=== PATIENT | female | born 1955 | race Caucasian/White ===

== ENCOUNTER 2017-12-04 08:58 | Outpatient (RCR) | payer BC, OTHER ==
[2017-11-07 16:11] LABS: BASOPHILS % (AUTO) 0 % (0-10); EOSINOPHILS # (AUTO) 0.1 10^3/uL (0.0-0.3); EOSINOPHILS % (AUTO) 1 % (0-10); HEMATOCRIT 37 % (35-52); HEMOGLOBIN 11.9 G/DL (11.5-16.0); LYMPHOCYTES # (AUTO) 1.7 X 10^3 (1.0-4.0); LYMPHOCYTES % (AUTO) 24 % (12-44); MEAN CORPUSCULAR HEMOGLOBIN 30 PG (25-34); MEAN CORPUSCULAR HGB CONC 32 G/DL (32-36); MEAN CORPUSCULAR VOLUME 94 FL (80-99); MEAN PLATELET VOLUME 9.4 FL (7.4-10.4); MONOCYTES # (AUTO) 0.7 X 10^3 (0.0-1.0); MONOCYTES % (AUTO) 10 % (0-12); NEUTROPHILS # (AUTO) 4.5 X 10^3 (1.8-7.8); NEUTROPHILS % (AUTO) 64 % (42-75); PLATELET COUNT 208 10^3/uL (130-400); RED BLOOD COUNT 3.99 10^6/uL (4.35-5.85); RED CELL DISTRIBUTION WIDTH 19.6 % (10.0-14.5)
[2017-11-07 16:40] LABS: ALANINE AMINOTRANSFERASE 19 U/L (0-55); ALBUMIN 4.6 GM/DL (3.2-4.5); ALKALINE PHOSPHATASE 88 U/L (40-136); BILIRUBIN,TOTAL 0.3 MG/DL (0.1-1.0); BUN/CREATININE RATIO 22; CALCIUM 9.7 MG/DL (8.5-10.1); CARBON DIOXIDE 21 MMOL/L (21-32); CHLORIDE 108 MMOL/L (98-107); CREATININE SERUM 1.43 MG/DL (0.60-1.30); GFR ESTIMATED 37; GLUCOSE 87 MG/DL (70-105); POTASSIUM 4.7 MMOL/L (3.6-5.0); SODIUM 140 MMOL/L (135-145); TOTAL PROTEIN 7.7 GM/DL (6.4-8.2)
[2017-11-13 14:07] LABS: BILIRUBIN,URINE NEGATIVE (NEGATIVE); CLARITY,URINE CLEAR; COLOR,URINE YELLOW; GLUCOSE, URINE (UA) NEGATIVE (NEGATIVE); KETONES,URINE NEGATIVE (NEGATIVE); LEUKOCYTE ESTERASE ,URINE 1+ (NEGATIVE); NITRITE,URINE NEGATIVE (NEGATIVE); PH,URINE 5 (5-9); PROTEIN,URINE 1+ (NEGATIVE); UROBILINOGEN,URINE NORMAL (NORMAL)
[2017-11-13 14:16] LABS: BACTERIA,URINE FEW /HPF; HYALINE CASTS, URINE 25-50 /LPF
[2017-11-26 10:08] LABS: BASOPHILS % (AUTO) 0 % (0-10); EOSINOPHILS # (AUTO) 0.1 10^3/uL (0.0-0.3); EOSINOPHILS % (AUTO) 4 % (0-10); HEMATOCRIT 31 % (35-52); HEMOGLOBIN 9.8 G/DL (11.5-16.0); LYMPHOCYTES # (AUTO) 0.8 X 10^3 (1.0-4.0); LYMPHOCYTES % (AUTO) 26 % (12-44); MEAN CORPUSCULAR HEMOGLOBIN 29 PG (25-34); MEAN CORPUSCULAR HGB CONC 31 G/DL (32-36); MEAN CORPUSCULAR VOLUME 94 FL (80-99); MONOCYTES # (AUTO) 0.3 X 10^3 (0.0-1.0); MONOCYTES % (AUTO) 9 % (0-12); NEUTROPHILS # (AUTO) 1.8 X 10^3 (1.8-7.8); NEUTROPHILS % (AUTO) 61 % (42-75); PLATELET COUNT 240 10^3/uL (130-400); RED BLOOD COUNT 3.34 10^6/uL (4.35-5.85); RED CELL DISTRIBUTION WIDTH 18.6 % (10.0-14.5)
[2017-11-26 10:18] LABS: BILIRUBIN,URINE NEGATIVE (NEGATIVE); CLARITY,URINE CLEAR; COLOR,URINE YELLOW; GLUCOSE, URINE (UA) NEGATIVE (NEGATIVE); KETONES,URINE NEGATIVE (NEGATIVE); LEUKOCYTE ESTERASE ,URINE 2+ (NEGATIVE); NITRITE,URINE NEGATIVE (NEGATIVE); PH,URINE 5 (5-9); PROTEIN,URINE NEGATIVE (NEGATIVE); UROBILINOGEN,URINE NORMAL (NORMAL)
[2017-11-26 10:28] LABS: ALBUMIN 3.9 GM/DL (3.2-4.5); BILIRUBIN,TOTAL 0.2 MG/DL (0.1-1.0); CALCIUM 9.3 MG/DL (8.5-10.1); CREATININE SERUM 1.12 MG/DL (0.60-1.30); POTASSIUM 4.4 MMOL/L (3.6-5.0); TOTAL PROTEIN 6.8 GM/DL (6.4-8.2)
[~2017-12-04] VITALS: Ht 162.6 cm; Wt 93.4 kg
[~2017-12-04 08:58] MED LIST: ATROPINE INJ 0.4 MG/ML SDV (CANCER CENTER) INJ SCH; BEVACIZUMAB IV SCH; FAMOTIDINE 20MG/2ML IV (CANCER CTR) IV SCH; FLUOROURACIL 0.8 GM in SYRINGE-IVPB 1 SYRINGE IV SCH; FLUOROURACIL 4,800 MG in NS (IVPB) CANCER CENTER 51.2 ML IV SCH; FOSAPREPITANT DIMEGLUMINE 150 MG in NS (IVPB) CANCER CENTER ONLY 150 ML IV SCH; IRINOTECAN HCL 300 MG, IRINOTECAN HCL 60 MG in D5W 250 ML IVPB (CANCER CTR) 250 ML IV SCH; LEUCOVORIN CALCIUM 700 MG, LEUCOVORIN CALCIUM 100 MG in D5W 250 ML IVPB (CANCER CTR) 25... IV SCH; NS IV 1000 ML (CANCER CTR) IV SCH; PALONOSETRON HCL 0.25 MG, DEXAMETHASONE INJECTION 10 MG in NS (IVPB) CANCER CENTER 50 ML IV SCH; [UNRECOGNIZED DRUG - OTHER] IV SCH; diphenhydrAMINE 25 MG TAB (BENADRYL) CANCER CENTER PO SCH
[2017-12-04 09:28] LABS: BASOPHILS % (AUTO) 1 % (0-10); EOSINOPHILS # (AUTO) 0.1 10^3/uL (0.0-0.3); EOSINOPHILS % (AUTO) 3 % (0-10); HEMATOCRIT 33 % (35-52); HEMOGLOBIN 10.5 G/DL (11.5-16.0); LYMPHOCYTES # (AUTO) 0.8 X 10^3 (1.0-4.0); LYMPHOCYTES % (AUTO) 21 % (12-44); MEAN CORPUSCULAR HEMOGLOBIN 30 PG (25-34); MEAN CORPUSCULAR HGB CONC 32 G/DL (32-36); MEAN CORPUSCULAR VOLUME 94 FL (80-99); MEAN PLATELET VOLUME 9.2 FL (7.4-10.4); MONOCYTES # (AUTO) 0.5 X 10^3 (0.0-1.0); MONOCYTES % (AUTO) 13 % (0-12); NEUTROPHILS # (AUTO) 2.3 X 10^3 (1.8-7.8); NEUTROPHILS % (AUTO) 62 % (42-75); PLATELET COUNT 205 10^3/uL (130-400); RED BLOOD COUNT 3.47 10^6/uL (4.35-5.85); RED CELL DISTRIBUTION WIDTH 18.8 % (10.0-14.5); WHITE BLOOD COUNT 3.7 10^3/uL (4.3-11.0)
[2017-12-04 09:32] LABS: BILIRUBIN,URINE NEGATIVE (NEGATIVE); CLARITY,URINE CLEAR; COLOR,URINE YELLOW; GLUCOSE, URINE (UA) NEGATIVE (NEGATIVE); KETONES,URINE NEGATIVE (NEGATIVE); LEUKOCYTE ESTERASE ,URINE 1+ (NEGATIVE); NITRITE,URINE NEGATIVE (NEGATIVE); PH,URINE 5 (5-9); PROTEIN,URINE NEGATIVE (NEGATIVE); UROBILINOGEN,URINE NORMAL (NORMAL)
[2017-12-04 09:51] LABS: BILIRUBIN,TOTAL 0.3 MG/DL (0.1-1.0); CALCIUM 9.1 MG/DL (8.5-10.1); CREATININE SERUM 1.11 MG/DL (0.60-1.30); POTASSIUM 3.9 MMOL/L (3.6-5.0); TOTAL PROTEIN 6.7 GM/DL (6.4-8.2)
[2017-12-18 09:27] LABS: BASOPHILS % (AUTO) 0 % (0-10); EOSINOPHILS # (AUTO) 0.3 10^3/uL (0.0-0.3); EOSINOPHILS % (AUTO) 5 % (0-10); HEMATOCRIT 34 % (35-52); HEMOGLOBIN 10.8 G/DL (11.5-16.0); LYMPHOCYTES # (AUTO) 0.9 X 10^3 (1.0-4.0); LYMPHOCYTES % (AUTO) 16 % (12-44); MEAN CORPUSCULAR HEMOGLOBIN 30 PG (25-34); MEAN CORPUSCULAR HGB CONC 32 G/DL (32-36); MEAN CORPUSCULAR VOLUME 94 FL (80-99); MEAN PLATELET VOLUME 10.2 FL (7.4-10.4); MONOCYTES # (AUTO) 0.5 X 10^3 (0.0-1.0); MONOCYTES % (AUTO) 9 % (0-12); NEUTROPHILS % (AUTO) 70 % (42-75); PLATELET COUNT 204 10^3/uL (130-400); RED BLOOD COUNT 3.61 10^6/uL (4.35-5.85); RED CELL DISTRIBUTION WIDTH 18.3 % (10.0-14.5); WHITE BLOOD COUNT 5.6 10^3/uL (4.3-11.0)
[2017-12-18 09:34] LABS: BILIRUBIN,URINE NEGATIVE (NEGATIVE); CLARITY,URINE CLEAR; COLOR,URINE YELLOW; GLUCOSE, URINE (UA) NEGATIVE (NEGATIVE); KETONES,URINE NEGATIVE (NEGATIVE); LEUKOCYTE ESTERASE ,URINE 3+ (NEGATIVE); NITRITE,URINE NEGATIVE (NEGATIVE); PH,URINE 5 (5-9); PROTEIN,URINE 2+ (NEGATIVE); UROBILINOGEN,URINE NORMAL (NORMAL)
[2017-12-18 09:51] LABS: ALANINE AMINOTRANSFERASE 17 U/L (0-55); ALBUMIN 4.1 GM/DL (3.2-4.5); ALKALINE PHOSPHATASE 71 U/L (40-136); BILIRUBIN,TOTAL 0.4 MG/DL (0.1-1.0); BUN/CREATININE RATIO 22; CALCIUM 9.3 MG/DL (8.5-10.1); CARBON DIOXIDE 25 MMOL/L (21-32); CHLORIDE 105 MMOL/L (98-107); CREATININE SERUM 0.85 MG/DL (0.60-1.30); GFR ESTIMATED > 60; GLUCOSE 118 MG/DL (70-105); POTASSIUM 4.2 MMOL/L (3.6-5.0); SODIUM 140 MMOL/L (135-145)
== END 2017-12-18 09:02 | disposition home or self-care (01) ==
LOC: ONC 08:58
PROVIDERS: ATTEND Internal Medicine Hematology & Oncology
DX: Z51.11 Encounter for antineoplastic chemotherapy (principal); C20 Malignant neoplasm of rectum; C78.00 Secondary malignant neoplasm of unspecified lung; C79.11 Secondary malignant neoplasm of bladder; C79.89 Secondary malignant neoplasm of other specified sites; I10 Essential (primary) hypertension; M25.552 Pain in left hip; Z79.899 Other long term (current) drug therapy; Z93.3 Colostomy status
CPT/HCPCS: 36415; 36591; 80053; 81000; 81002; 82378; 85025; 87088; 96365; 96367; 96368; 96375; 96411; 96413; 99214

== ENCOUNTER 2018-02-26 10:36 | Outpatient (RCR) | payer BC ==
[2018-01-02 13:41] LABS: BASOPHILS % (AUTO) 0 % (0-10); EOSINOPHILS # (AUTO) 0.1 10^3/uL (0.0-0.3); EOSINOPHILS % (AUTO) 3 % (0-10); HEMATOCRIT 31 % (35-52); HEMOGLOBIN 9.9 G/DL (11.5-16.0); LYMPHOCYTES # (AUTO) 0.9 X 10^3 (1.0-4.0); LYMPHOCYTES % (AUTO) 26 % (12-44); MEAN CORPUSCULAR HEMOGLOBIN 30 PG (25-34); MEAN CORPUSCULAR HGB CONC 32 G/DL (32-36); MEAN CORPUSCULAR VOLUME 93 FL (80-99); MEAN PLATELET VOLUME 9.9 FL (7.4-10.4); MONOCYTES # (AUTO) 0.4 X 10^3 (0.0-1.0); MONOCYTES % (AUTO) 13 % (0-12); NEUTROPHILS # (AUTO) 1.9 X 10^3 (1.8-7.8); NEUTROPHILS % (AUTO) 58 % (42-75); PLATELET COUNT 184 10^3/uL (130-400); RED BLOOD COUNT 3.33 10^6/uL (4.35-5.85); RED CELL DISTRIBUTION WIDTH 18.6 % (10.0-14.5); WHITE BLOOD COUNT 3.3 10^3/uL (4.3-11.0)
[2018-01-02 13:58] LABS: ALANINE AMINOTRANSFERASE 24 U/L (0-55); ALBUMIN 4.1 GM/DL (3.2-4.5); ALKALINE PHOSPHATASE 64 U/L (40-136); BILIRUBIN,TOTAL 0.4 MG/DL (0.1-1.0); BUN/CREATININE RATIO 15; CALCIUM 9.1 MG/DL (8.5-10.1); CARBON DIOXIDE 24 MMOL/L (21-32); CHLORIDE 105 MMOL/L (98-107); CREATININE SERUM 0.85 MG/DL (0.60-1.30); GFR ESTIMATED > 60; GLUCOSE 123 MG/DL (70-105); POTASSIUM 3.8 MMOL/L (3.6-5.0); SODIUM 140 MMOL/L (135-145); TOTAL PROTEIN 6.5 GM/DL (6.4-8.2)
[2018-01-22 09:19] LABS: BASOPHILS % (AUTO) 0 % (0-10); EOSINOPHILS # (AUTO) 0.2 10^3/uL (0.0-0.3); EOSINOPHILS % (AUTO) 2 % (0-10); HEMATOCRIT 37 % (35-52); HEMOGLOBIN 11.5 G/DL (11.5-16.0); LYMPHOCYTES # (AUTO) 1.3 X 10^3 (1.0-4.0); LYMPHOCYTES % (AUTO) 19 % (12-44); MEAN CORPUSCULAR HEMOGLOBIN 29 PG (25-34); MEAN CORPUSCULAR HGB CONC 31 G/DL (32-36); MEAN CORPUSCULAR VOLUME 94 FL (80-99); MEAN PLATELET VOLUME 9.8 FL (7.4-10.4); MONOCYTES # (AUTO) 0.4 X 10^3 (0.0-1.0); MONOCYTES % (AUTO) 6 % (0-12); NEUTROPHILS # (AUTO) 5.1 X 10^3 (1.8-7.8); NEUTROPHILS % (AUTO) 72 % (42-75); PLATELET COUNT 213 10^3/uL (130-400); RED CELL DISTRIBUTION WIDTH 16.9 % (10.0-14.5)
[2018-01-22 09:39] LABS: ALANINE AMINOTRANSFERASE 14 U/L (0-55); ALBUMIN 4.3 GM/DL (3.2-4.5); ALKALINE PHOSPHATASE 92 U/L (40-136); BILIRUBIN,TOTAL 0.2 MG/DL (0.1-1.0); BUN/CREATININE RATIO 18; CALCIUM 9.7 MG/DL (8.5-10.1); CARBON DIOXIDE 19 MMOL/L (21-32); CHLORIDE 104 MMOL/L (98-107); CREATININE SERUM 0.88 MG/DL (0.60-1.30); GFR ESTIMATED > 60; GLUCOSE 133 MG/DL (70-105); SODIUM 139 MMOL/L (135-145); TOTAL PROTEIN 7.4 GM/DL (6.4-8.2)
[2018-02-11 10:13] LABS: BASOPHILS % (AUTO) 0 % (0-10); EOSINOPHILS # (AUTO) 0.1 10^3/uL (0.0-0.3); EOSINOPHILS % (AUTO) 2 % (0-10); HEMATOCRIT 33 % (35-52); LYMPHOCYTES % (AUTO) 19 % (12-44); MEAN CORPUSCULAR HEMOGLOBIN 28 PG (25-34); MEAN CORPUSCULAR HGB CONC 30 G/DL (32-36); MEAN CORPUSCULAR VOLUME 94 FL (80-99); MEAN PLATELET VOLUME 9.4 FL (7.4-10.4); MONOCYTES # (AUTO) 0.6 X 10^3 (0.0-1.0); MONOCYTES % (AUTO) 11 % (0-12); NEUTROPHILS # (AUTO) 3.7 X 10^3 (1.8-7.8); NEUTROPHILS % (AUTO) 68 % (42-75); PLATELET COUNT 265 10^3/uL (130-400); RED BLOOD COUNT 3.54 10^6/uL (4.35-5.85); RED CELL DISTRIBUTION WIDTH 16.8 % (10.0-14.5); WHITE BLOOD COUNT 5.4 10^3/uL (4.3-11.0)
[2018-02-11 10:35] LABS: ALBUMIN 3.9 GM/DL (3.2-4.5); BILIRUBIN,TOTAL 0.3 MG/DL (0.1-1.0); CALCIUM 9.8 MG/DL (8.5-10.1); CREATININE SERUM 1.42 MG/DL (0.60-1.30); POTASSIUM 4.2 MMOL/L (3.6-5.0); TOTAL PROTEIN 7.4 GM/DL (6.4-8.2)
[~2018-02-26] VITALS: Ht 162.6 cm; Wt 82.6 kg
[~2018-02-26 10:36] MED LIST changes: +NS IV 1000 ML (CANCER CTR) 1,000 ML ONE
[2018-02-26 11:05] LABS: BASOPHILS % (AUTO) 0 % (0-10); EOSINOPHILS # (AUTO) 0.1 10^3/uL (0.0-0.3); EOSINOPHILS % (AUTO) 2 % (0-10); HEMATOCRIT 30 % (35-52); LYMPHOCYTES # (AUTO) 0.9 X 10^3 (1.0-4.0); LYMPHOCYTES % (AUTO) 32 % (12-44); MEAN CORPUSCULAR HEMOGLOBIN 28 PG (25-34); MEAN CORPUSCULAR HGB CONC 30 G/DL (32-36); MEAN CORPUSCULAR VOLUME 94 FL (80-99); MEAN PLATELET VOLUME 9.6 FL (7.4-10.4); MONOCYTES # (AUTO) 0.4 X 10^3 (0.0-1.0); MONOCYTES % (AUTO) 16 % (0-12); NEUTROPHILS # (AUTO) 1.3 X 10^3 (1.8-7.8); NEUTROPHILS % (AUTO) 49 % (42-75); PLATELET COUNT 217 10^3/uL (130-400); RED BLOOD COUNT 3.17 10^6/uL (4.35-5.85); RED CELL DISTRIBUTION WIDTH 17.9 % (10.0-14.5); WHITE BLOOD COUNT 2.6 10^3/uL (4.3-11.0)
[2018-02-26 11:29] LABS: ALBUMIN 3.9 GM/DL (3.2-4.5); BILIRUBIN,TOTAL 0.3 MG/DL (0.1-1.0); CALCIUM 9.5 MG/DL (8.5-10.1); CREATININE SERUM 1.79 MG/DL (0.60-1.30); POTASSIUM 4.8 MMOL/L (3.6-5.0); TOTAL PROTEIN 6.9 GM/DL (6.4-8.2)
[2018-03-04] MEDS ORDERED: NITR100C PO (17:14)
[2018-03-04] MEDS ORDERED: ONDA4TAB11 PO (17:14)
== END 2018-03-18 | disposition home or self-care (01) ==
LOC: ONC 10:36
PROVIDERS: ATTEND Internal Medicine Hematology & Oncology
DX: Z51.11 Encounter for antineoplastic chemotherapy (principal); C20 Malignant neoplasm of rectum; C78.01 Secondary malignant neoplasm of right lung; C78.02 Secondary malignant neoplasm of left lung; C79.11 Secondary malignant neoplasm of bladder; C79.89 Secondary malignant neoplasm of other specified sites; C77.5 Secondary and unspecified malignant neoplasm of intrapelvic lymph nodes; I10 Essential (primary) hypertension; M25.552 Pain in left hip; M54.5 Low back pain; M79.605 Pain in left leg; N39.0 Urinary tract infection, site not specified; D64.9 Anemia, unspecified; D72.819 Decreased white blood cell count, unspecified; Z79.899 Other long term (current) drug therapy; Z93.3 Colostomy status
CPT/HCPCS: 36591; 80053; 82378; 85025; 96367; 96368; 96375; 96411; 96413

== ENCOUNTER → 2018-02-26 | Outpatient (CLI) | payer BC ==
[2018-02-26 11:15] LABS: BASOPHILS % (AUTO) 0 % (0-10); EOSINOPHILS # (AUTO) 0.1 10^3/uL (0.0-0.3); EOSINOPHILS % (AUTO) 2 % (0-10); HEMATOCRIT 30 % (35-52); LYMPHOCYTES # (AUTO) 0.9 X 10^3 (1.0-4.0); LYMPHOCYTES % (AUTO) 32 % (12-44); MEAN CORPUSCULAR HEMOGLOBIN 28 PG (25-34); MEAN CORPUSCULAR HGB CONC 30 G/DL (32-36); MEAN CORPUSCULAR VOLUME 94 FL (80-99); MEAN PLATELET VOLUME 9.6 FL (7.4-10.4); MONOCYTES # (AUTO) 0.4 X 10^3 (0.0-1.0); MONOCYTES % (AUTO) 16 % (0-12); NEUTROPHILS # (AUTO) 1.3 X 10^3 (1.8-7.8); NEUTROPHILS % (AUTO) 49 % (42-75); PLATELET COUNT 217 10^3/uL (130-400); RED BLOOD COUNT 3.17 10^6/uL (4.35-5.85); RED CELL DISTRIBUTION WIDTH 17.9 % (10.0-14.5); WHITE BLOOD COUNT 2.6 10^3/uL (4.3-11.0)
[2018-02-26 11:40] LABS: CREATININE SERUM 1.79 MG/DL (0.60-1.30); POTASSIUM 4.8 MMOL/L (3.6-5.0)
[2018-02-26 11:41] LABS: CALCIUM 9.5 MG/DL (8.5-10.1)
[2018-02-26 14:30] LABS: BACTERIA,URINE MODERATE /HPF; BILIRUBIN,URINE NEGATIVE (NEGATIVE); CLARITY,URINE VERY CLOUDY; COLOR,URINE YELLOW; GLUCOSE, URINE (UA) NEGATIVE (NEGATIVE); KETONES,URINE NEGATIVE (NEGATIVE); LEUKOCYTE ESTERASE ,URINE 3+ (NEGATIVE); NITRITE,URINE POSITIVE (NEGATIVE); PH,URINE 5 (5-9); PROTEIN,URINE 2+ (NEGATIVE); UROBILINOGEN,URINE NORMAL (NORMAL); WBC,URINE 50-100 /HPF
== END ==
LOC: LAB 11:02
PROVIDERS: ATTEND Urology
DX: R35.0 Frequency of micturition (principal); N28.9 Disorder of kidney and ureter, unspecified; C18.9 Malignant neoplasm of colon, unspecified; C77.8 Secondary and unspecified malignant neoplasm of lymph nodes of multiple regions
CPT/HCPCS: 36415; 80048; 81000; 85025; 87077; 87088

== ENCOUNTER 2018-03-04 13:48 | Emergency (ER) | payer BC ==
[~2018-03-04] VITALS: Ht 162.6 cm; Wt 79.4 kg
--- OUTSIDE RECORDS SUMMARY | 2018-03-04 13:52 | XMS REPORT | Referral Summary ---
Author Author [facility] Organization [facility] Address Unknown Phone Unavailable Care Team Providers Care Appliance Adjuster Name Role Phone Dell Roberson PCP Encounter VC Date(s): 05/17/16 - 05/17/16 [facility] [address] [place], [place] [address] Discharge Diagnosis: Rectal cancer Discharge Disposition: 01-Home or Self Care Attending Physician: Jordon De Leon MD Admitting Physician: Jordon De Leon MD Referring Physician: Hamlet Cleveland MD Vital Signs Most recent to 1 oldest [Reference Range]: Peripheral Pulse 79 bpm Rate [60-100 bpm] (05/17/16 2:06 PM) Blood Pressure 150/72 mmHg [90-140/60-90 mmHg] *HI* (05/17/16 2:06 PM) Problem List Condition Effective Dates Status Health Status Informant Acute Active pain(Confirmed) At risk for activity Active intolerance(Confirme d)1 At risk for Active infection(Confirmed) 2 At risk of pressure Active sore(Confirmed) Impaired skin Active integrity(Confirmed) 3 Rectal Active cancer(Confirmed) Obesity(Confirmed) Active patient Self -care Active deficit(Confirmed)4 1Problem added automatically by system based on initiation of At Risk for Activity Intolerance Plan of Care 2Problem added automatically by system based on initiation of At Risk for Infection in Nutrition Plan of Care 3Problem added automatically by system based on initiation of Impaired Skin Integrity Plan of Care 4Problem added automatically by system based on initiation of Self Care Deficit Plan of Care Allergies, Adverse Reactions, Alerts Substance Reaction Severity Status penicillin Unknown Active Medications Emma-C 1,000 mg, Oral, Daily, 0 Refill(s) Start Date: 10/08/13 Status: Ordered glucosamine 1 tabs, Oral, Daily, 0 Refill(s) Start Date: 10/08/13 Status: Ordered Iron-150 1 tabs, Oral, BID, 0 Refill(s) Start Date: 10/08/13 Status: Ordered Results No data available for this section Immunizations No data available for this section Procedures Procedure Date Related Diagnosis Body Site Colostomy1 10/09/13 Resection Colon Laparoscopic Robotic2 10/09/13 Caesarean delivery following previous caesarean Portacath in place 1auto-populated from documented surgical case 2auto-populated from documented surgical case Social History Social History Type Response Smoking Status Never smoker Assessment and Plan No data available for this section
--- OUTSIDE RECORDS SUMMARY | 2018-03-04 13:52 | XMS REPORT | CCD ---
Author Author [facility] Organization Unknown Address [address] [facility] [address] [place], [place] [id number] Care Team Providers Care Paperhanger Assistant Name Role Phone JAYCEE PRIEST MD Vital Signs Vital Sign Value Unit Date/Time Recent/Initial? Weight Measured 210 lbs 01/21/2015 08:02 Initial VS Height 64 in 01/21/2015 08:02 Initial VS BMI (Body Mass Index) 36.05 kg/m^2 01/21/2015 08:02 Initial VS BSA (Body Surface Area) 2.07 m^2 01/21/2015 08:02 Initial VS Allergies Allergy Code Allergy Type Reaction Status PCN (penicillin) 0 Drug allergy Active Procedures Procedure Code Procedure Type Date Colonoscopy through stoma; with removal of tumor(s), polyp(s), or other le 98713 CPT 01/22/2015 PATHOLOGY ORDER [id number] SNOMED CT 01/22/2015 History of Immunizations Unknown or Not Available. Problems Problem Code Start Date Resolved Date Status Rectal bleeding [id number] 06/06/2013 Active Anemia [id number] 06/06/2013 Active Results Unknown or Not Available. Active Medications No Active Medications Medications Administered During Visit Unknown or Not Available. 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 You had the following procedures done: COLONOSCOPY & POLYPECTOMY You were discharged from [facility] on 01/22/2015. Should you have any questions prior to discharge, please contact a member of your healthcare team. If you have left the hospital and have any questions, please contact your primary care physician. Chief Complaint and Reason For Visit Chief Complaint Date of Onset COLONOSCOPY Function Status Unknown or Not Available. Plan of Care Unknown or Not Available. Referral/Transition of Care Unknown or Not Available.
--- OUTSIDE RECORDS SUMMARY | 2018-03-04 13:53 | XMS REPORT ---
Author Author Mitch Gresham [facility] Address [address] [place], [place] [id number] Care Team Providers Care Credit Reporter Name Role Phone MpMitch PCP OSCAR GODWIN PreferredProvider Allergies and Adverse Reactions Name Reaction Notes PENICILLINS Plan of Treatment Planned Activity Comments Planned Date Planned Time Plan/Goal URINALYSIS W/MICRO C&S IF IND 02/05/2018 12:00 AM CBC W/ AUTO DIFF (RFLX MAN DIFF IF IND). 02/05/2018 12:00 AM BMP 02/05/2018 12:00 AM Medications Active Name Start Date Estimated Completion Date SIG Comments Glucosamine 500 mg oral tablet take 1 tablet by oral route daily Emma-C with Bioflavonoids 500-200 mg oral tablet take 1 tablet by oral route daily gabapentin 300 mg oral capsule take 1 capsule (300 mg) by oral route 3 times per day duloxetine 60 mg oral capsule,delayed release(DR/EC) take 1 capsule (60 mg) by oral route once daily hydrocodone-acetaminophen 5-325 mg oral tablet take 1 tablet by oral route every 6 hours as needed OxyContin 15 mg oral tablet,oral only,ext.rel.12 hr take 1 tablet (15 mg ) by oral route every 12 hours furosemide 20 mg oral tablet 01/04/2018 take 1 tablet (20 mg) by oral route once daily oxybutynin chloride 10 mg oral tablet extended release 24hr 01/07/2018 take 1 tablet (10 mg) by oral route once daily lisinopril 20 mg oral tablet 01/07/2018 take 1 tablet (20 mg) by oral route once daily Name Start Date Expiration Date SIG Comments prednisone 20 mg oral tablet 07/06/2015 07/14/2015 4x2 days 3x2 days 2x2 days 1x2 days Suphedrine 30 mg oral tablet 07/06/2015 07/06/2015 take 1 tablets by oral route every 4 hours as needed Discontinued Name Start Date Discontinued Date SIG Comments iron 325 mg (65 mg iron) oral capsule, extended release 01/11/2015 take 1 capsule by oral route daily Flagyl 500 mg oral tablet 12/29/2013 01/05/2014 take 1 tablet (500 mg) by oral route 3 times per day for 10 days silver sulfadiazine 1 % topical cream 02/26/2017 12/10/2017 apply a 1/16 inch (1.5 mm) thick layer to entire burn area by topical route once daily Problem List Description Status Onset Anemia Active Rectal Neoplasm, Malignant Active Colorectal cancer Active 01/08/2018 Essential hypertension Active 01/08/2018 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 01/08/2018 Vital Signs Date Time BP-Sys(mm[Hg] BP-Diane(mm[Hg]) HR(bpm) RR(rpm) Temp WT HT HC BMI BSA BMI Percentile O2 Sat(%) 01/25/2018 1:50:00 PM 130 mmHg 70 mmHg 64 bpm 14 rpm 97.5 F 195.125 lbs 64 in 33.4928 kg/m 1.9992 m 98 % 12/31/2017 2:50:00 PM 128 mmHg 80 mmHg 90 bpm 18 rpm 98.4 F 202 lbs 98 % 12/10/2017 4:05:00 PM 120 mmHg 70 mmHg 73 bpm 16 rpm 98.1 F 201.25 lbs 64 in 34.5441 kg/m 2.0303 m 97 % 02/12/2017 6:55:00 AM 162 mmHg 80 mmHg 92 bpm 16 rpm 99.2 F 226 lbs 64 in 38.79 kg/m2 2.15 m2 98 % 07/06/2015 3:35:00 PM 156 mmHg 80 mmHg 88 bpm 16 rpm 98.4 F 224 lbs 64 in 38.4491 kg/m 2.142 m 93 % 12/09/2014 2:46:00 PM 160 mmHg 80 mmHg 68 bpm 16 rpm 98.1 F 220 lbs 65 in 36.61 kg/m2 2.14 m2 01/12/2014 1:49:00 PM 160 mmHg 60 mmHg 91 bpm 20 rpm 96 F 97 % 01/05/2014 9:40:00 AM 144 mmHg 70 mmHg 73 bpm 20 rpm 96.7 F 194 lbs 65 in 32.283 kg/m 2.0089 m 99 % 12/29/2013 9:46:00 AM 144 mmHg 60 mmHg 80 bpm 16 rpm 96.6 F 95 % 06/09/2013 1:10:00 PM 126 mmHg 72 mmHg 80 bpm 20 rpm 97.9 F 187 lbs 64 in 32.0981 kg/m 1.9571 m 98 % Social History Name Description Comments Alcohol Never Uses seatbelts Caffeine Light Tobacco Never smoker History of Procedures Date Ordered Description Order Status 01/11/2015 12:00 AM IMMUNIZATION ADMIN Reviewed 01/11/2015 12:00 AM IMMUNIZATION ADMIN EACH ADD Reviewed 01/11/2015 12:00 AM FLU VAC NO PRSV 4 MARGARITO 3 YRS+ Reviewed 01/11/2015 12:00 AM PNEUMOCOCCAL VACC 13 MARGARITO IM Reviewed 09/25/2016 12:00 AM COMPLETE CBC W/AUTO DIFF WBC Returned 09/25/2016 12:00 AM COMPREHEN METABOLIC PANEL Returned 09/25/2016 12:00 AM ROUTINE VENIPUNCTURE Reviewed 10/09/2016 12:00 AM COMPLETE CBC W/AUTO DIFF WBC Returned 10/09/2016 12:00 AM COMPREHEN METABOLIC PANEL Returned 10/09/2016 12:00 AM ROUTINE VENIPUNCTURE Reviewed 10/23/2016 12:00 AM COMPLETE CBC W/AUTO DIFF WBC Returned 10/23/2016 12:00 AM COMPREHEN METABOLIC PANEL Returned 10/23/2016 12:00 AM ROUTINE VENIPUNCTURE Reviewed 11/06/2016 12:00 AM COMPLETE CBC W/AUTO DIFF WBC Returned 11/06/2016 12:00 AM COMPREHEN METABOLIC PANEL Returned 11/06/2016 12:00 AM ROUTINE VENIPUNCTURE Reviewed 11/21/2016 12:00 AM COMPLETE CBC W/AUTO DIFF WBC Returned 11/21/2016 12:00 AM COMPREHEN METABOLIC PANEL Returned 11/21/2016 12:00 AM ROUTINE VENIPUNCTURE Reviewed 12/05/2016 12:00 AM COMPLETE CBC W/AUTO DIFF WBC Returned 12/05/2016 12:00 AM COMPREHEN METABOLIC PANEL Returned 12/05/2016 12:00 AM ROUTINE VENIPUNCTURE Reviewed 12/18/2016 12:00 AM COMPLETE CBC W/AUTO DIFF WBC Returned 12/18/2016 12:00 AM COMPREHEN METABOLIC PANEL Returned 12/18/2016 12:00 AM ROUTINE VENIPUNCTURE Reviewed 01/01/2017 12:00 AM COMPLETE CBC W/AUTO DIFF WBC Returned 01/01/2017 12:00 AM COMPREHEN METABOLIC PANEL Returned 01/01/2017 12:00 AM ROUTINE VENIPUNCTURE Reviewed 01/29/2017 12:00 AM COMPLETE CBC W/AUTO DIFF WBC Returned 01/29/2017 12:00 AM COMPREHEN METABOLIC PANEL Returned 01/29/2017 12:00 AM ROUTINE VENIPUNCTURE Reviewed 02/12/2017 12:00 AM THER/PROPH/DIAG INJ SC/IM Reviewed 02/12/2017 12:00 AM Decadron 8mg Injection Reviewed 02/12/2017 12:00 AM Depo-Medrol 80mg Injection Reviewed 02/12/2017 12:00 AM COMPLETE CBC W/AUTO DIFF WBC Returned 02/12/2017 12:00 AM COMPREHEN METABOLIC PANEL Returned 02/12/2017 12:00 AM ROUTINE VENIPUNCTURE Reviewed 02/26/2017 12:00 AM COMPLETE CBC W/AUTO DIFF WBC Returned 02/26/2017 12:00 AM COMPREHEN METABOLIC PANEL Returned 02/26/2017 12:00 AM ROUTINE VENIPUNCTURE Reviewed 03/26/2017 12:00 AM COMPLETE CBC W/AUTO DIFF WBC Returned 03/26/2017 12:00 AM COMPREHEN METABOLIC PANEL Returned 03/26/2017 12:00 AM ROUTINE VENIPUNCTURE Reviewed 04/09/2017 12:00 AM COMPLETE CBC W/AUTO DIFF WBC Returned 04/09/2017 12:00 AM COMPREHEN METABOLIC PANEL Returned 04/09/2017 12:00 AM ROUTINE VENIPUNCTURE Reviewed 04/23/2017 12:00 AM COMPLETE CBC W/AUTO DIFF WBC Returned 04/23/2017 12:00 AM COMPREHEN METABOLIC PANEL Returned 04/23/2017 12:00 AM ROUTINE VENIPUNCTURE Reviewed 05/08/2017 12:00 AM COMPLETE CBC W/AUTO DIFF WBC Returned 05/08/2017 12:00 AM COMPREHEN METABOLIC PANEL Returned 05/08/2017 12:00 AM ROUTINE VENIPUNCTURE Reviewed 05/21/2017 12:00 AM COMPLETE CBC W/AUTO DIFF WBC Returned 05/21/2017 12:00 AM COMPREHEN METABOLIC PANEL Returned 05/21/2017 12:00 AM ROUTINE VENIPUNCTURE Reviewed 07/02/2017 12:00 AM COMPLETE CBC W/AUTO DIFF WBC Returned 07/02/2017 12:00 AM COMPREHEN METABOLIC PANEL Returned 07/02/2017 12:00 AM ROUTINE VENIPUNCTURE Reviewed 07/16/2017 12:00 AM COMPLETE CBC W/AUTO DIFF WBC Returned 07/16/2017 12:00 AM COMPREHEN METABOLIC PANEL Returned 07/16/2017 12:00 AM ROUTINE VENIPUNCTURE Reviewed 07/30/2017 12:00 AM COMPLETE CBC W/AUTO DIFF WBC Returned 07/30/2017 12:00 AM COMPREHEN METABOLIC PANEL Returned 07/30/2017 12:00 AM ROUTINE VENIPUNCTURE Reviewed 11/22/2017 12:00 AM COMPLETE CBC W/AUTO DIFF WBC Returned 11/22/2017 12:00 AM COMPREHEN METABOLIC PANEL Returned 11/22/2017 12:00 AM ROUTINE VENIPUNCTURE Reviewed 11/22/2017 12:00 AM CARCINOEMBRYONIC ANTIGEN Returned 12/10/2017 12:00 AM URINALYSIS AUTO W/SCOPE Reviewed 01/25/2018 12:00 AM URINALYSIS AUTO W/SCOPE Reviewed 01/14/2014 12:00 AM FLU VAC NO PRSV 4 MARGARITO 3 YRS+ Reviewed 01/14/2014 12:00 AM TETANUS VACCINE IM Reviewed 01/14/2014 12:00 AM PNEUMOCOCCAL VACC 23 MARGARITO IM Reviewed Results Summary Date and Description Results 12/10/2017 5:31 PM COLOR YELLOW APPEARANCE CLEAR SPEC GRAV >=1.030 pH 5.0 PROTEIN NEGATIVE GLUCOSE NEGATIVE KETONE NEGATIVE BILIRUBIN NEGATIVE BLOOD NEGATIVE NITRITE NEGATIVE LEUK SCREEN NEGATIVE WBC/HPF NEGATIVE RBC/HPF NEGATIVE CASTS/LPF NEGATIVE CRYSTALS NEGATIVE MUCOUS THRDS NEGATIVE BACTERIA NEGATIVE EPITH CELLS NEGATIVE TRICHOMONAS NEGATIVE YEAST NEGATIVE CULT SET UP? NO 01/25/2018 4:33 PM COLOR YELLOW APPEARANCE CLEAR SPEC GRAV 1.025 pH 5.5 PROTEIN 100 GLUCOSE NEGATIVE KETONE NEGATIVE BILIRUBIN NEGATIVE BLOOD LARGE NITRITE POSITIVE LEUK SCREEN SMALL WBC/HPF 20-50 RBC/HPF 100-200 CASTS/LPF NEGATIVE CRYSTALS NEGATIVE MUCOUS THRDS NEGATIVE BACTERIA 1+ EPITH CELLS FEW SQUAMOUS TRICHOMONAS NEGATIVE YEAST NEGATIVE CULT SET UP? YES History Of Immunizations Name Date Admin Mfg Name Mfg Code Trade Name Lot# Route Inj Vis Given Vis Pub CVX Influenza 01/11/2015 sanofi pasteur PMC Fluzone > 12 Years [id number] Intramuscular Right Deltoid 01/12/2015 10/23/2014 141 Pneumococcal 01/11/2015 Pfizer, Inc. PFR Prevnar [id number] Intramuscular Left Deltoid 01/12/2015 03/19/2014 100 X 01/11/2015 Pfizer, Inc. PFR Prevnar [id number] Intramuscular Left Deltoid 01/12/2015 03/19/2014 100 History of Past Illness Name Date of Onset Comments Anemia Rectal Neoplasm, Malignant Colorectal cancer 01/08/2018 Essential hypertension 01/08/2018 Mild episode of recurrent major depressive disorder 01/08/2018 Rectal Cancer Jun 09 2013 1:13PM Postoperative Follow-up Jan 05 2014 9:42AM Need for other prophylactic vaccination ,single disease Jan 15 2014 2:01PM Need for other prophylactic vaccination ,single disease Jan 15 2014 2:10PM Postoperative Follow-up Jan 12 2014 1:51PM Postoperative Follow-up Dec 29 2013 9:48AM Colon Cancer Screening Jan 11 2015 2:47PM Personal History of Colon Cancer Jan 11 2015 2:47PM Flu and Pneumonia vaccines Jan 12 2015 11:58AM Eustachian tube dysfunction, bilateral Jul 06 2015 3:35PM Moderate Acute Post-nasal drainage Jul 06 2015 3:35PM Moderate Acute Nasal congestion Jul 06 2015 3:35PM Ear pressure, bilateral Jul 06 2015 3:35PM Adenocarcinoma of rectum Sep 25 2016 10:16AM Adenocarcinoma of rectum Oct 09 2016 7:09AM Adenocarcinoma of rectum Oct 23 2016 8:47AM Adenocarcinoma of rectum Nov 06 2016 10:52AM Adenocarcinoma of rectum Nov 21 2016 8:39AM Adenocarcinoma of rectum Dec 05 2016 7:20AM Adenocarcinoma of rectum Dec 18 2016 11:03AM Adenocarcinoma of rectum Jan 01 2017 10:35AM Adenocarcinoma of rectum Jan 29 2017 9:07AM Cough Feb 12 2017 6:56AM Purulent postnasal drainage Feb 12 2017 6:56AM Upper respiratory tract infection, unspecified type Feb 12 2017 6:56AM Sinus pressure Feb 12 2017 6:56AM Adenocarcinoma of rectum Feb 12 2017 10:14AM Adenocarcinoma of rectum Feb 26 2017 7:21AM Adenocarcinoma of rectum Mar 26 2017 7:33AM Adenocarcinoma of rectum Apr 09 2017 8:48AM Adenocarcinoma of rectum Apr 23 2017 7:35AM Adenocarcinoma of rectum May 08 2017 7:17AM Adenocarcinoma of rectum May 21 2017 6:45AM Adenocarcinoma of rectum Jul 02 2017 8:48AM Adenocarcinoma of rectum Jul 16 2017 7:40AM Adenocarcinoma of rectum Jul 30 2017 9:23AM Adenocarcinoma of rectum Nov 22 2017 8:21AM Secondary malignant neoplasm of unspecified site Dec 10 2017 4:07PM Malignant neoplasm of colon, unspecified Dec 10 2017 4:07PM Bladder mass Dec 10 2017 4:07PM Hydronephrosis Dec 10 2017 4:07PM Colorectal cancer Dec 31 2017 2:51PM Medication management Dec 31 2017 2:51PM Essential hypertension Dec 31 2017 2:51PM Mild episode of recurrent major depressive disorder Dec 31 2017 2:51PM Renal dysfunction Jan 25 2018 1:52PM Colon cancer metastasized to multiple sites Jan 25 2018 1:52PM Urinary Frequency Jan 25 2018 1:52PM Preop examination Feb 05 2018 10:05AM Payers Insurance Name Company Name Plan Name Plan Number Policy Number Policy Group Number Start Date [employer] [place] [id number] Thursday, 2015 [employer] [place] [id number] N/A [employer] [place] [id number] N/A [employer] [place] [id number] N/A History of Encounters Visit Date Visit Type Provider 01/25/2018 Office visit Mitch Gresham MD 12/31/2017 Office visit OSCAR RODARTE 12/11/2017 Surgery Mitch Gresham MD 12/10/2017 Office visit Mitch Gresham MD 11/22/2017 Laboratory OSCAR GODWIN PA 07/30/2017 Laboratory OSCAR GODWIN PA 07/16/2017 Laboratory OSCAR GODWIN PA 07/02/2017 Laboratory OSCAR GODWIN PA 05/21/2017 Laboratory OSCAR GODWIN PA 05/08/2017 Laboratory OSCAR GODWIN PA 04/23/2017 Laboratory OSCAR GODWIN PA 04/09/2017 Laboratory OSCAR GODWIN PA 03/26/2017 Laboratory OSCAR GODWIN PA 02/26/2017 Laboratory OSCAR GODWIN PA 02/12/2017 Office visit OSCAR GODWIN PA 01/29/2017 Laboratory OSCAR GODWIN PA 01/01/2017 Laboratory OSCAR GODWIN PA 12/18/2016 Laboratory OSCAR GODWIN PA 12/05/2016 Laboratory OSCAR GODWIN PA 11/21/2016 Laboratory OSCAR GODWIN PA 11/06/2016 Laboratory OSCAR GODWIN PA 10/23/2016 Laboratory OSCAR GODWIN PA 10/09/2016 Laboratory OSCAR GODWIN PA 09/25/2016 Laboratory OSCAR GODWIN PA 07/06/2015 Office visit OSCAR RODARTE 01/22/2015 Hospital Oscar Jonas MD 01/11/2015 Office visit Oscar Jonas MD 01/14/2014 Nurse visit Oscar Jonas MD 01/12/2014 Office visit Oscar Jonas MD 01/05/2014 Office visit Oscar Jonas MD 12/29/2013 Office visit Oscar Jonas MD 12/26/2013 Hospital Oscar Jonas MD 06/19/2013 Hospital Oscar Jonas MD 06/09/2013 Office visit Oscar Jonas MD 06/07/2013 [facility] Oscar Jonas MD 06/06/2013 [facility] Oscar Jonas MD
--- OUTSIDE RECORDS SUMMARY | 2018-03-04 13:53 | XMS REPORT ---
Author Author Mitch Gresham [facility] Address [address] [place], [place] [address] Care Team Providers Care Operations Controller Name Role Phone MpMitch PCP OSCAR GODWIN [...] sanofi pasteur PMC Fluzone > 12 Years [id number] Intramuscular Right Deltoid 01/12/2015 10/23/2014 141 Pneumococcal 01/11/2015 Pfizer, Inc. PFR Prevnar [id number] Intramuscular Left Deltoid 01/12/2015 03/19/2014 100 X 01/11/2015 Pfizer, Inc. PFR Prevnar [id number] Intramuscular Left Deltoid 01/12/2015 03/19/2014 100 History [...] Group Number Start Date [employer] [place] [id number] Thursday, 2015 [employer] [place] [id number] N/A [employer] [place] [id number] N/A [employer] [place] [id number] N/A History of Encounters Visit Date Visit [...] 06/09/2013 Office visit Oscar Jonas MD 06/07/2013 [facility] Oscar Jonas MD 06/06/2013 [facility] Oscar Jonas MD
--- OUTSIDE RECORDS SUMMARY | 2018-03-04 13:54 | XMS REPORT ---
Author Author OSCAR GODWIN [facility] Address [address] [place], [place] [address] Care Team Providers Care Supervisor Compressed Yeast Name Role Phone OSCAR GODWIN PCP OSCAR GODWIN PreferredProvider Allergies and Adverse Reactions Name Reaction Notes PENICILLINS Plan of Treatment Not available. Medications Active Name Start Date Estimated Completion [...] HC BMI BSA BMI Percentile O2 Sat(%) 12/31/2017 2:50:00 PM 128 mmHg 80 mmHg [...] 12/10/2017 12:00 AM URINALYSIS AUTO W/SCOPE Reviewed 01/14/2014 [...] NEGATIVE YEAST NEGATIVE CULT SET UP? NO History Of Immunizations Name Date Admin Mfg Name Mfg Code Trade Name Lot# Route Inj Vis Given Vis Pub CVX Influenza 01/11/2015 sanofi pasteur PMC Fluzone > 12 Years [id number] Intramuscular Right Deltoid 01/12/2015 10/23/2014 141 Pneumococcal 01/11/2015 Pfizer, Inc. PFR Prevnar [id number] Intramuscular Left Deltoid 01/12/2015 03/19/2014 100 X 01/11/2015 Pfizer, Inc. PFR Prevnar [id number] Intramuscular Left Deltoid 01/12/2015 03/19/2014 100 History [...] major depressive disorder Dec 31 2017 2:51PM Payers Insurance Name Company Name Plan Name Plan Number Policy Number Policy Group Number Start Date [employer] [facility] [id number] Thursday, 2015 [employer] [place] [id number] N/A [employer] [place] [id number] N/A [employer] [place] [id number] N/A History of Encounters Visit Date Visit Type Provider 12/31/2017 Office visit OSCAR ORDARTE 12/11/2017 Surgery Mitch Gresham MD 12/10/2017 Office visit Mitch Gresham MD 11/22/2017 Laboratory OSCAR RODARTE 07/30/2017 Laboratory OSCAR RODARTE 07/16/2017 Laboratory OSCAR RODARTE 07/02/2017 Laboratory OSCAR RODARTE 05/21/2017 Laboratory OSCAR RODARTE 05/08/2017 Laboratory OSCAR GODWIN PA 04/23/2017 Laboratory [...] OSCAR GODWIN PA 07/06/2015 Office visit OSCAR GODWIN PA 01/22/2015 Hospital Oscar Jonas MD 01/11/2015 Office visit Oscar Jonas MD 01/14/2014 Nurse visit Oscar Jonas MD 01/12/2014 Office visit Oscar Jonas MD 01/05/2014 Office visit Oscar Jonas MD 12/29/2013 Office visit Oscar Jonas MD 12/26/2013 Hospital Oscar Jonas MD 06/19/2013 Hospital Oscar Jonas MD 06/09/2013 Office visit Oscar Jonas MD 06/07/2013 Hospital Oscar Jonas MD 06/06/2013 Hospital Oscar Jonas MD
--- OUTSIDE RECORDS SUMMARY | 2018-03-04 13:54 | XMS REPORT ---
Author Author Mitch Gresham [facility] Address [address] [place], [place] [address] Care Team Providers Care Metal Cleaner Name Role Phone Mitch Gresham PCP OSCAR GODWIN PreferredProvider Allergies and Adverse [...] sanofi pasteur PMC Fluzone > 12 Years [id number] Intramuscular Right Deltoid 01/12/2015 10/23/2014 141 Pneumococcal 01/11/2015 Pfizer, Inc. PFR Prevnar [id number] Intramuscular Left Deltoid 01/12/2015 03/19/2014 100 X 01/11/2015 Pfizer, Inc. PFR Prevnar [id number] Intramuscular Left Deltoid 01/12/2015 03/19/2014 100 History [...] 1:52PM Urinary Frequency Jan 25 2018 1:52PM Payers Insurance Name Company Name Plan Name Plan Number Policy Number Policy Group Number Start Date [employer] [place] [id number] Thursday, 2015 [employer] [place] [id number] N/A [employer] [place] [id number] N/A [employer] [place] [id number] N/A History of Encounters Visit Date Visit Type Provider 01/25/2018 Office visit Mitch Gresham MD 12/31/2017 Office visit OSCAR RODARTE 12/11/2017 Surgery Mitch Gresham MD 12/10/2017 Office visit Mitch Gresham MD 11/22/2017 Laboratory OSCAR GODWIN PA 07/30/2017 Laboratory OSCAR GODWIN PA 07/16/2017 Laboratory OSCAR PENAER PA 07/02/2017 Laboratory OSCAR PENAER PA 05/21/2017 Laboratory OSCAR PENAER PA 05/08/2017 Laboratory OSCAR PENAER PA 04/23/2017 Laboratory OSCAR GODWIN PA 04/09/2017 Laboratory OSCAR PENAER PA 03/26/2017 Laboratory OSCAR GODWIN PA 02/26/2017 Laboratory OSCAR PENAER PA 02/12/2017 Office visit OSCAR GODWIN PA 01/29/2017 Laboratory OSCAR PENAER PA 01/01/2017 Laboratory OSCAR PENAER PA 12/18/2016 Laboratory OSCAR PENAER PA 12/05/2016 Laboratory OSCAR PENAER PA 11/21/2016 Laboratory OSCAR PENAER PA 11/06/2016 Laboratory OSCAR GODWIN PA 10/23/2016 [...]
--- OUTSIDE RECORDS SUMMARY | 2018-03-04 13:55 | XMS REPORT ---
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 Name Role Phone OSCAR GODWIN PCP OSCAR GODWIN PreferredProvider Allergies and Adverse Reactions Name Reaction Notes PENICILLINS Plan of Treatment Planned Activity Comments Planned Date Planned Time Plan/Goal CBC with Differential 11/22/2017 12:00 AM CMP 11/22/2017 12:00 AM CEA 11/22/2017 12:00 AM Medications Active Name Start Date Estimated Completion Date SIG Comments Glucosamine 500 mg oral tablet take 1 tablet by oral route daily Emma-C with Bioflavonoids 500-200 mg oral tablet take 1 tablet by oral route daily gabapentin 300 mg oral capsule take 1 capsule (300 mg) by oral route 3 times per day silver sulfadiazine 1 % topical cream 02/26/2017 apply a 1/16 inch (1.5 mm ) thick layer to entire burn area by topical route once daily Name Start Date Expiration [...] 3 times per day for 10 days Problem List Description Status Onset Anemia Active Rectal Neoplasm, Malignant Active Vital Signs Date Time BP-Sys(mm[Hg] BP-Diane(mm[Hg]) HR(bpm) RR(rpm) Temp WT HT HC BMI BSA BMI Percentile O2 Sat(%) 02/12/2017 6:55:00 AM 162 mmHg 80 mmHg 92 bpm 16 rpm 99.2 F 226 lbs 64 in 38.7924 kg/m 2.1515 m 98 % 07/06/2015 3:35:00 PM 156 mmHg 80 mmHg 88 bpm 16 rpm 98.4 F 224 lbs 64 in 38.45 kg/m2 2.14 m2 93 % 12/09/2014 2:46:00 PM 160 mmHg [...] Name Description Comments Alcohol Never Uses seatbelts Tobacco Never smoker History of Procedures Date [...] AM ROUTINE VENIPUNCTURE Reviewed 11/22/2017 12:00 AM ROUTINE VENIPUNCTURE Reviewed 01/14/2014 12:00 AM FLU VAC NO PRSV 4 MARGARITO 3 YRS+ Reviewed 01/14/2014 12:00 AM TETANUS VACCINE IM Reviewed 01/14/2014 12:00 AM PNEUMOCOCCAL VACC 23 MARGARITO IM Reviewed Results Summary Not available. History Of Immunizations Name Date Admin Mfg Name Mfg Code Trade Name Lot# Route Inj Vis Given Vis Pub CVX Influenza 01/11/2015 sanofi pasteur PMC Fluzone > 12 Years [id number] Intramuscular Right Deltoid 01/12/2015 10/23/2014 141 Pneumococcal 01/11/2015 Pfizer, Inc. PFR Prevnar [id number] Intramuscular Left Deltoid 01/12/2015 03/19/2014 100 X 01/11/2015 Pfizer, Inc. PFR Prevnar [id number] Intramuscular Left Deltoid 01/12/2015 03/19/2014 100 History of Past Illness Name Date of Onset Comments Anemia Rectal Neoplasm, Malignant Rectal Cancer Jun 09 2013 1:13PM Postoperative [...] Adenocarcinoma of rectum Nov 22 2017 8:21AM Payers Insurance Name Company Name Plan Name Plan Number Policy Number Policy Group Number Start Date BCBS Bcbs [facility] [id number] Thursday, 2015 [employer] [place] [id number] N/A [employer] [place] [id number] N/A [employer] [place] [id number] N/A History of Encounters Visit Date Visit Type Provider 11/22/2017 Laboratory Liliana Pena RN 07/30/2017 Laboratory OSCAR RODARTE 07/16/2017 Laboratory OSCAR [...]
--- OUTSIDE RECORDS SUMMARY | 2018-03-04 13:55 | XMS REPORT ---
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 Name Role Phone OSCAR GODWIN PCP Unavailable OSCAR GODWIN PreferredProvider Unavailable Allergies and Adverse Reactions Name Reaction Notes PENICILLINS Plan of Treatment Planned Activity Comments Planned Date Planned Time Plan/Goal CBC with Differential 10/09/2016 12:00 AM CMP 10/09/2016 12:00 AM Medications Active Name Start Date Estimated Completion Date SIG Comments Glucosamine 500 mg oral tablet take 1 tablet by oral route daily Emma-C with Bioflavonoids 500-200 mg oral tablet take 1 tablet by oral route daily gabapentin 300 mg oral capsule take 1 capsule (300 mg) by oral route 3 times per day Name Start Date Expiration Date SIG Comments [...] HC BMI BSA BMI Percentile O2 Sat(%) 07/06/2015 3:35:00 PM 156 mmHg 80 mmHg 88 bpm 16 rpm 98.4 F 224 lbs 64 in 38.45 kg/m2 2.14 m2 93 % 12/09/2014 2:46:00 PM 160 mmHg 80 mmHg 68 bpm 16 rpm 98.1 F 220 lbs 65 in 36.6095 kg/m 2.1393 m 01/12/2014 1:49:00 PM 160 mmHg 60 mmHg [...] 98 % Social History Name Description Comments Tobacco Never smoker History of Procedures Date [...] AM ROUTINE VENIPUNCTURE Reviewed 10/09/2016 12:00 AM ROUTINE VENIPUNCTURE Reviewed 01/14/2014 12:00 AM FLU VAC NO PRSV 4 MARGARITO 3 YRS+ Reviewed 01/14/2014 12:00 AM TETANUS VACCINE IM Reviewed 01/14/2014 12:00 AM PNEUMOCOCCAL VACC 23 MARGARITO IM Reviewed Results Summary Date and Description Results 06/06/2013 4:54 AM WBC 8.1 RBC 3.15 HGB 8.10 g/dLHCT 27.0 %MCV 86.0 fLMCH 25.70 pgMCHC 30.0 g/dLRDW SD 47 RDW CV 15.20 %MPV 9.50 fLPLT 283 NRBC# 0.00 NRBC % 0.0 %NEUT 51.60 %%LYMP 38.20 %%MONO 8.0 %%EOS 1.60 %%BASO 0.60 %#NEUT 4.20 # LYMP 3.11 #MONO 0.65 #EOS 0.13 #BASO 0.05 MANUAL DIFF NOT IND GLUCOSE 109.0 mg/ dLSODIUM 142.0 mmol/LPOTASSIUM 3.70 mmol/LCHLORIDE 108.0 mmol/LCO2 23.0 mmol/ LBUN 13.0 mg/dLCREATININE 0.70 mg/dLSGOT/AST 15.0 IU/LSGPT/ALT 14.0 IU/LALK PHOS 64.0 IU/LTOTAL PROTEIN 6.0 g/dLALBUMIN 3.60 g/dLTOTAL BILI 0.30 mg/ dLCALCIUM 8.40 mg/dLAGE 58 GFR NonAA 87 GFR AA 105 eGFR >60 mL/min/1.73 m2eGFR AA* >60 06/06/2013 4:50 PM WBC 7.5 RBC 3.12 HGB 8.20 g/dLHCT 26.70 %MCV 86.0 fLMCH 26.30 pgMCHC 30.70 g/dLRDW SD 47 RDW CV 15.0 %MPV 9.50 fLPLT 274 NRBC# 0.00 NRBC % 0.0 %NEUT 57.0 %%LYMP 35.20 %%MONO 5.90 %%EOS 1.50 %%BASO 0.40 %#NEUT 4.27 # LYMP 2.64 #MONO 0.44 #EOS 0.11 #BASO 0.03 MANUAL DIFF NOT IND 06/07/2013 6:55 AM WBC 7.5 RBC 2.97 HGB 7.70 g/dLHCT 25.40 %MCV 86.0 fLMCH 25.90 pgMCHC 30.30 g/dLRDW SD 47 RDW CV 15.10 %MPV 9.50 fLPLT 240 NRBC# 0.00 NRBC% 0.0 %NEUT 62.50 %%LYMP 30.0 %%MONO 5.60 %%EOS 1.50 %%BASO 0.40 %#NEUT 4.67 #LYMP 2.24 #MONO 0.42 #EOS 0.11 #BASO 0.03 MANUAL DIFF NOT IND 12/26/2013 3:07 PM SPECIMEN SOURCE: POCKET SPECIMEN SOURCE: LEFT BREAST SPECIMEN SOURCE: CATH TIP 12/14/2015 1:53 PM WBC 6.4 RBC 4.95 HGB 14.20 g/dLHCT 43.70 %MCV 88.0 fLMCH 28.70 pgMCHC 32.50 g/dLRDW SD 45 RDW CV 13.90 %MPV 9.60 fLPLT 198 NRBC# 0.00 NRBC% 0.0 %NEUT 74.40 %%LYMP 18.10 %%MONO 5.80 %%EOS 0.90 %%BASO 0.50 %#NEUT 4.78 #LYMP 1.16 #MONO 0.37 #EOS 0.06 #BASO 0.03 MANUAL DIFF NOT IND GLUCOSE 98.0 mg/dLSODIUM 144.0 mmol/LPOTASSIUM 3.70 mmol/LCHLORIDE 107.0 mmol/LCO2 22.0 mmol/LBUN 14.0 mg/dLCREATININE 0.70 mg/dLSGOT/AST 19.0 IU/LSGPT/ALT 19.0 IU/ LALK PHOS 90.0 IU/LTOTAL PROTEIN 7.80 g/dLALBUMIN 4.90 g/dLTOTAL BILI 0.50 mg/ dLCALCIUM 9.60 mg/dLAGE 60 GFR NonAA 86 GFR AA 104 eGFR >60 mL/min/1.73meGFR AA* >60 CEA 50.80 ng/mL 12/22/2015 2:34 PM CEA 64.90 ng/mL 02/28/2016 4:40 PM CEA 81.90 ng/mL 05/01/2016 2:20 PM CEA 95.70 ng/mLWBC 8.1 RBC 4.78 HGB 13.80 g/dLHCT 42.10 % MCV 88.0 fLMCH 28.90 pgMCHC 32.80 g/dLRDW SD 45 RDW CV 14.0 %MPV 9.0 fLPLT 183 NRBC# 0.00 NRBC% 0.0 %NEUT 77.80 %%LYMP 13.30 %%MONO 6.60 %%EOS 1.70 %%BASO 0.40 %#NEUT 6.27 #LYMP 1.07 #MONO 0.53 #EOS 0.14 #BASO 0.03 MANUAL DIFF NOT IND GLUCOSE 92.0 mg/dLSODIUM 140.0 mmol/LPOTASSIUM 3.80 mmol/LCHLORIDE 104.0 mmol/ LCO2 26.0 mmol/LBUN 12.0 mg/dLCREATININE 0.80 mg/dLSGOT/AST 16.0 IU/LSGPT/ALT 16.0 IU/LALK PHOS 88.0 IU/LTOTAL PROTEIN 7.60 g/dLALBUMIN 4.50 g/dLTOTAL BILI 0.40 mg/dLCALCIUM 9.40 mg/dLAGE 61 GFR NonAA 73 GFR AA 88 eGFR >60 mL/min/1.73m eGFR AA* >60 09/25/2016 4:34 PM WBC 4.1 RBC 4.56 HGB 12.30 g/dLHCT 40.10 %MCV 88.0 fLMCH 27.0 pgMCHC 30.70 g/dLRDW SD 50 RDW CV 15.90 %MPV 9.80 fLPLT 269 NRBC# 0.02 NRBC % 0.5 %NEUT 61.90 %%LYMP 23.60 %%MONO 10.70 %%EOS 2.90 %%BASO 0.70 %#NEUT 2.54 # LYMP 0.97 #MONO 0.44 #EOS 0.12 #BASO 0.03 MANUAL DIFF NOT IND GLUCOSE 112.0 mg/ dLSODIUM 141.0 mmol/LPOTASSIUM 4.50 mmol/LCHLORIDE 105.0 mmol/LCO2 25.0 mmol/ LBUN 23.0 mg/dLCREATININE 0.90 mg/dLSGOT/AST 17.0 IU/LSGPT/ALT 24.0 IU/LALK PHOS 95.0 IU/LTOTAL PROTEIN 7.80 g/dLALBUMIN 4.70 g/dLTOTAL BILI 0.30 mg/ dLCALCIUM 9.30 mg/dLAGE 61 GFR NonAA 64 GFR AA 78 eGFR >60 mL/min/1.73meGFR AA * >60 History Of Immunizations Name Date Admin Mfg Name Mf Code Trade Name Lot# Route Inj Vis Given Vis Pub CVX Influenza 01/11/2015 sanofi pasteur PMC Fluzone > 12 Years [id number] Intramuscular Right Deltoid 01/12/2015 10/23/2014 141 Pneumococcal 01/11/2015 Pfizer, Inc. PFR Prevnar [id number] Intramuscular Left Deltoid 01/12/2015 03/19/2014 100 X 01/11/2015 Pfizer, Inc. PFR Prevnar [id number] Intramuscular Left Deltoid 01/12/2015 03/19/2014 100 History [...] Adenocarcinoma of rectum Oct 09 2016 7:09AM Payers Insurance Name Company Name Plan Name Plan Number Policy Number Policy Group Number Start Date [employer] [place] [id number] N/A [employer] [place] [id number] N/A [employer] [place] [id number] N/A [employer] [place] [id number] N/A History of Encounters Visit Date Visit Type Provider 10/09/2016 Laboratory OSCAR RODARTE 09/25/2016 Laboratory OSCAR RODARTE 07/06/2015 Office visit OSCAR RODARTE 01/22/2015 [facility] Oscar Jonas MD 01/11/2015 Office visit Oscar Jonas MD 01/14/2014 Nurse visit Oscar Jonas MD 01/12/2014 Office visit Oscar Jonas MD 01/05/2014 Office visit Oscar Jonas MD 12/29/2013 Office visit Oscar Jonas MD 12/26/2013 [facility] Oscar Jonas MD 06/19/2013 [facility] Oscar Jonas MD 06/09/2013 Office visit Oscar Jonas MD 06/07/2013 [facility] Oscar Jonas MD 06/06/2013 [facility] Oscar Jonas MD
--- OUTSIDE RECORDS SUMMARY | 2018-03-04 13:55 | XMS REPORT ---
Author Author Mitch Gresham Organization [facility] Address [address] [place], [place] [address] Care Team Providers Care Manager Group Name Role Phone Mitch Gresham PCP OSCAR GODWIN PreferredProvider Allergies and Adverse Reactions Name Reaction Notes PENICILLINS Plan of Treatment Planned Activity Comments Planned Date Planned Time Plan/Goal URINALYSIS W/MICRO C&S IF IND 12/10/2017 12:00 AM Medications Active Name Start Date Estimated Completion Date SIG Comments Glucosamine 500 mg oral tablet take 1 tablet by oral route daily Emma-C with Bioflavonoids 500-200 mg oral tablet take 1 tablet by oral route daily gabapentin 300 mg oral capsule take 1 capsule (300 mg) by oral route 3 times per day oxybutynin chloride 10 mg oral tablet extended release 24hr take 1 tablet (10 mg) by oral route once daily lisinopril 20 mg oral tablet take 1 tablet (20 mg) by oral route once daily furosemide 20 mg oral tablet take 1 tablet (20 mg) by oral route once daily duloxetine 60 mg oral capsule,delayed release(DR/EC) take 1 capsule (60 mg) by oral route once daily hydrocodone-acetaminophen 5-325 mg oral tablet take 1 tablet by oral route every 6 hours as needed OxyContin 15 mg oral tablet,oral only,ext.rel.12 hr take 1 tablet (15 mg ) by oral route every 12 hours Name Start Date Expiration Date SIG Comments [...] HC BMI BSA BMI Percentile O2 Sat(%) 12/10/2017 4:05:00 PM 120 mmHg 70 mmHg [...] Reviewed 11/22/2017 12:00 AM CARCINOEMBRYONIC ANTIGEN Returned 01/14/2014 12:00 AM FLU VAC NO PRSV 4 MARGARITO 3 YRS+ Reviewed 01/14/2014 12:00 AM TETANUS VACCINE IM Reviewed 01/14/2014 12:00 AM PNEUMOCOCCAL VACC 23 MARGARITO IM Reviewed Results Summary Not available. History Of Immunizations Name Date Admin Mfg Name Mfg Code Trade Name Lot# Route Inj Vis Given Vis Pub CVX Influenza 01/11/2015 sanofi pasteur PMC Fluzone > 12 Years [id number] Intramuscular Right Deltoid 01/12/2015 10/23/2014 141 Pneumococcal 01/11/2015 [employer]. PFR Prevnar [id number] Intramuscular Left Deltoid 01/12/2015 03/19/2014 100 X 01/11/2015 Pfizer, Inc. PFR Prevnar [id number] Intramuscular Left Deltoid 01/12/2015 03/19/2014 100 History [...] 2017 4:07PM Hydronephrosis Dec 10 2017 4:07PM Payers Insurance Name Company Name Plan Name Plan Number Policy Number Policy Group Number Start Date [employer] [place] [id number] Thursday, 2015 [employer] [place] [id number] N/A [employer] [place] [id number] N/A [employer] [place] [id number] N/A History of Encounters Visit Date Visit Type Provider 12/10/2017 Office visit Mitch Gresham MD 11/22/2017 [...] Office visit Oscar Jonas MD 12/26/2013 Hospital Osacr Jonas MD 06/19/2013 Hospital Oscar Jonas MD 06/09/2013 Office visit Oscar Jonas MD 06/07/2013 [facility] Oscar Jonas MD 06/06/2013 [facility] Oscar Jonas MD
--- OUTSIDE RECORDS SUMMARY | 2018-03-04 13:56 | XMS REPORT ---
Author Author OSCAR GODWIN [facility] Address [address] [place], [place] [id number] Care Team Providers Care Cost Consultant Name Role Phone OSCAR GODWIN PCP OSCAR GODWIN PreferredProvider Allergies and Adverse Reactions Name Reaction Notes PENICILLINS Plan of Treatment Planned Activity Comments Planned Date Planned Time Plan/Goal CBC with Differential 02/26/2017 12:00 AM CMP 02/26/2017 12:00 AM Medications Active Name Start Date [...] rpm 96.7 F 194 lbs 65 in 32.28 kg/m2 2.01 m2 99 % 12/29/2013 9:46:00 AM 144 mmHg 60 mmHg 80 bpm 16 rpm 96.6 F 95 % 06/09/2013 1:10:00 PM 126 mmHg 72 mmHg 80 bpm 20 rpm 97.9 F 187 lbs 64 in 32.10 kg/m2 1.96 m2 98 % Social History Name Description Comments [...] AM ROUTINE VENIPUNCTURE Reviewed 02/26/2017 12:00 AM ROUTINE VENIPUNCTURE Reviewed 01/14/2014 12:00 [...] sanofi pasteur PMC Fluzone > 12 Years [id number] Intramuscular Right Deltoid 01/12/2015 10/23/2014 141 Pneumococcal 01/11/2015 Pfizer, Inc. PFR Prevnar [id number] Intramuscular Left Deltoid 01/12/2015 03/19/2014 100 X 01/11/2015 Pfizer, Inc. PFR Prevnar [id number] Intramuscular Left Deltoid 01/12/2015 03/19/2014 100 History [...] Adenocarcinoma of rectum Feb 26 2017 7:21AM Payers Insurance Name Company Name Plan Name Plan Number Policy Number Policy Group Number Start Date BCBS Bcbs [facility] [id number] Thursday, 2015 BCBS [employer] [place] [id number] N/A [employer] [place] [id number] N/A [employer] [place] [id number] N/A History of Encounters Visit Date Visit Type Provider 02/26/2017 Laboratory OSCAR RODARTE 02/12/2017 Office visit OSCAR RODARTE 01/29/2017 Laboratory OSCAR RODARTE 01/01/2017 Laboratory OSCAR RODARTE 12/18/2016 Laboratory OSCAR RODARTE 12/05/2016 Laboratory OSCAR RODARTE 11/21/2016 Laboratory OSCAR RODARTE 11/06/2016 Laboratory OSCAR RODARTE 10/23/2016 Laboratory OSCAR RODARTE 10/09/2016 Laboratory OSCAR RODARTE 09/25/2016 Laboratory OSCAR RODARTE 07/06/2015 Office visit OSCAR RODARTE 01/22/2015 Hospital Oscar Jonas MD 01/11/2015 Office visit Oscar Jonas MD 01/14/2014 Nurse visit Oscar Jonas MD 01/12/2014 Office visit Oscar Jonas MD 01/05/2014 Office visit Oscar Jonas MD 12/29/2013 Office visit Oscar Jonas MD 12/26/2013 Hospital Oscar Jonas MD 06/19/2013 [facility] Oscar Jonas MD 06/09/2013 Office visit Oscar Jonas MD 06/07/2013 [facility] Oscar Jonas MD 06/06/2013 [facility] Oscar Jonas MD
--- OUTSIDE RECORDS SUMMARY | 2018-03-04 13:56 | XMS REPORT ---
Author Author OSCAR GODWIN [facility] Address [address] [place], [place] [address] Care Team Providers Care Scaffold Worker Name Role Phone OSCAR GODWIN PCP OSCAR GODWIN PreferredProvider Allergies and Adverse Reactions Name Reaction Notes PENICILLINS Plan of Treatment Planned Activity Comments Planned Date Planned Time Plan/Goal CBC with Differential 07/30/2017 12:00 AM CMP 07/30/2017 12:00 AM Medications Active Name Start Date [...] AM ROUTINE VENIPUNCTURE Reviewed 07/30/2017 12:00 AM ROUTINE VENIPUNCTURE Reviewed 01/14/2014 12:00 [...] sanofi pasteur PMC Fluzone > 12 Years [id number] Intramuscular Right Deltoid 01/12/2015 10/23/2014 141 Pneumococcal 01/11/2015 Pfizer, Inc. PFR Prevnar [id number] Intramuscular Left Deltoid 01/12/2015 03/19/2014 100 X 01/11/2015 Pfizer, Inc. PFR Prevnar [id number] Intramuscular Left Deltoid 01/12/2015 03/19/2014 100 History [...] Adenocarcinoma of rectum Jul 30 2017 9:23AM Payers Insurance Name Company Name Plan Name Plan Number Policy Number Policy Group Number Start Date [employer]BS [employer] [place] [id number] Thursday, 2015 [employer] [place] [id number] N/A [employer]BS [employer] [place] [id number] N/A BCBS Bcbs [facility] [id number] N/A History of Encounters Visit Date Visit Type Provider 07/30/2017 Laboratory OSCAR RODARTE 07/16/2017 Laboratory OSCAR RODARTE 07/02/2017 Laboratory OSCAR RODARTE 05/21/2017 Laboratory OSCAR RODARTE 05/08/2017 Laboratory OSCAR RODARTE 04/23/2017 Laboratory OSCAR RODARTE 04/09/2017 Laboratory OSCAR RODARTE 03/26/2017 Laboratory OSCAR RODARTE 02/26/2017 Laboratory OSCAR RODARTE 02/12/2017 Office visit OSCAR RODARTE 01/29/2017 Laboratory OSCAR RODARTE 01/01/2017 Laboratory OSCAR GODWIN PA 12/18/2016 Laboratory [...] 12/29/2013 Office visit Oscar Jonas MD 12/26/2013 [facility] Oscar Jonas MD 06/19/2013 [facility] Oscar Jonas MD 06/09/2013 Office visit Oscar Jonas MD 06/07/2013 [facility] Oscar Jonas MD 06/06/2013 [facility] Oscar Jonas MD
--- OUTSIDE RECORDS SUMMARY | 2018-03-04 13:56 | XMS REPORT ---
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 Name Role Phone Oscar Jonas PCP Unavailable Allergies and Adverse Reactions Name Reaction [...] by oral route 3 times per day Discontinued Name Start Date Discontinued Date SIG [...] HC BMI BSA BMI Percentile O2 Sat(%) 12/09/2014 2:46:00 PM 160 mmHg 80 mmHg [...] F 187 lbs 64 in 32.0981 kg/m 1.96 m2 98 % Social History Name Description Comments Tobacco Never smoker History of Procedures Date Ordered Description Order Status 01/11/2015 12:00 AM IMMUNIZATION ADMIN Reviewed 01/11/2015 12:00 AM IMMUNIZATION ADMIN EACH ADD Reviewed 01/11/2015 12:00 AM FLU VAC NO PRSV 4 MARGARITO 3 YRS+ Reviewed 01/11/2015 12:00 AM PNEUMOCOCCAL VACC 13 MARGARITO IM Returned 01/14/2014 12:00 AM FLU VAC NO PRSV 4 MARGARITO 3 YRS+ Reviewed 01/14/2014 12:00 AM TETANUS VACCINE IM Reviewed 01/14/2014 12:00 AM PNEUMOCOCCAL VACC 23 MARGARITO IM Reviewed Results Summary Data and Description Results 06/06/2013 4:54 AM WBC 8.1 RBC 3.15 HGB 8.10 g/dLHCT 27.0 %MCV 86.0 fLMCH 25.70 pgMCHC 30.0 g/dLRDW CV 15.20 %MPV 9.50 fLPLT 283 %NEUT 51.60 %%LYMP 38.20 %%MONO 8.0 %%EOS 1.60 %%BASO 0.60 %#NEUT 4.20 #LYMP 3.11 #MONO 0.65 #EOS 0.13 # BASO 0.05 GLUCOSE 109.0 mg/dLSODIUM 142.0 mmol/LPOTASSIUM 3.70 mmol/LCHLORIDE 108.0 mmol/LCO2 23.0 mmol/LBUN 13.0 mg/dLCREATININE 0.70 mg/dLSGOT/AST 15.0 IU/ LSGPT/ALT 14.0 IU/LALK PHOS 64.0 IU/LTOTAL PROTEIN 6.0 g/dLALBUMIN 3.60 g/ dLTOTAL BILI 0.30 mg/dLCALCIUM 8.40 mg/dLeGFR >60 mL/min/1.73 m2 06/06/2013 4:50 PM WBC 7.5 RBC 3.12 HGB 8.20 g/dLHCT 26.70 %MCV 86.0 fLMCH 26.30 pgMCHC 30.70 g/dLRDW CV 15.0 %MPV 9.50 fLPLT 274 %NEUT 57.0 %%LYMP 35.20 % %MONO 5.90 %%EOS 1.50 %%BASO 0.40 %#NEUT 4.27 #LYMP 2.64 #MONO 0.44 #EOS 0.11 # BASO 0.03 06/07/2013 6:55 AM WBC 7.5 RBC 2.97 HGB 7.70 g/dLHCT 25.40 %MCV 86.0 fLMCH 25.90 pgMCHC 30.30 g/dLRDW CV 15.10 %MPV 9.50 fLPLT 240 %NEUT 62.50 %%LYMP 30.0 %%MONO 5.60 %%EOS 1.50 %%BASO 0.40 %#NEUT 4.67 #LYMP 2.24 #MONO 0.42 #EOS 0.11 # BASO 0.03 History Of Immunizations Name Date Admin Mfg Name Mfg Code Trade Name Lot# Route Inj Vis Given Vis Pub CVX Influenza 01/11/2015 sanofi pasteur PMC Fluzone > 12 Years [id number] Intramuscular Right Deltoid 01/12/2015 10/23/2014 141 PCV 01/11/2015 Pfizer, Inc. PFR Prevnar [id number] Intramuscular Left Deltoid 01/12/2015 03/19/2014 100 Pneumococcal 01/11/2015 Pfizer, Inc. PFR Prevnar [id number] Intramuscular Left Deltoid 01/12/2015 03/19/2014 100 History [...] and Pneumonia vaccines Jan 12 2015 11:58AM Payers Insurance Name Company Name Plan Name Plan Number Policy Number Policy Group Number Start Date [employer]bs [employer] [place] [id number] N/A [employer]cbs [employer] [place] [id number] N/A [employer]cbs [employer] [place] [id number] N/A History of Encounters Visit Date Visit Type Provider 01/11/2015 Office visit Oscar Jonas MD 01/14/2014 Nurse visit Oscar Jonas MD 01/12/2014 Office visit Oscar Jonas MD 01/05/2014 Office visit Oscar Jonas MD 12/29/2013 Office visit Oscar Jonas MD 12/26/2013 [facility] Oscar Jonas MD 06/19/2013 [facility] Oscar Jonas MD 06/09/2013 Office visit Oscar Jonas MD 06/07/2013 [facility] Oscar Jonas MD 06/06/2013 [facility] Oscar Jonas MD
--- OUTSIDE RECORDS SUMMARY | 2018-03-04 13:57 | XMS REPORT ---
Author Author OSCAR GODWIN [facility] Address [address] [place], [place] [address] Care Team Providers Care Tool Design Engineer Name Role Phone OSCAR GODWIN PCP OSCAR GODWIN PreferredProvider Allergies and Adverse Reactions Name Reaction Notes PENICILLINS Plan of Treatment Planned Activity Comments Planned Date Planned Time Plan/Goal CBC with Differential 05/21/2017 12:00 AM CMP 05/21/2017 12:00 AM Medications Active Name Start Date [...] AM ROUTINE VENIPUNCTURE Reviewed 05/21/2017 12:00 AM ROUTINE VENIPUNCTURE Reviewed 01/14/2014 12:00 [...] sanofi pasteur PMC Fluzone > 12 Years [id number] Intramuscular Right Deltoid 01/12/2015 10/23/2014 141 Pneumococcal 01/11/2015 [employer] PFR Prevnar [id number] Intramuscular Left Deltoid 01/12/2015 03/19/2014 100 X 01/11/2015 Pfizer, Inc. PFR Prevnar [id number] Intramuscular Left Deltoid 01/12/2015 03/19/2014 100 History [...] Adenocarcinoma of rectum May 21 2017 6:45AM Payers Insurance Name Company Name Plan Name Plan Number Policy Number Policy Group Number Start Date BCBS Bcbs [facility] [id number] Thursday, 2015 BCBS [employer] [place] [id number] N/A [employer] [place] [id number] N/A [employer]BS [employer] [place] [id number] N/A History of Encounters Visit Date Visit Type Provider 05/21/2017 Laboratory OSCAR RODARTE 05/08/2017 Laboratory OSCAR RODARTE 04/23/2017 Laboratory OSCAR GODWIN PA 04/09/2017 Laboratory OSCAR GODWIN PA 03/26/2017 Laboratory OSCAR GODWIN PA 02/26/2017 Laboratory OSCAR GODWIN PA 02/12/2017 Office visit OSCAR RODARTE 01/29/2017 Laboratory [...] 06/09/2013 Office visit Oscar Jonas MD 06/07/2013 [facility] Oscar Jonas MD 06/06/2013 [facility] Oscar Jonas MD
--- OUTSIDE RECORDS SUMMARY | 2018-03-04 13:57 | XMS REPORT ---
Author Author OSCAR GODWIN [facility] Address [address] [place], [place] [address] Care Team Providers Care Negative Stripper Name Role Phone OSCAR GODWIN PCP Unavailable OSCAR GODWIN PreferredProvider Unavailable Allergies and Adverse Reactions Name Reaction Notes PENICILLINS Plan of Treatment Planned Activity Comments Planned Date Planned Time Plan/Goal CBC with Differential 11/21/2016 12:00 AM CMP 11/21/2016 12:00 AM Medications Active Name Start Date [...] AM ROUTINE VENIPUNCTURE Reviewed 11/21/2016 12:00 AM ROUTINE VENIPUNCTURE Reviewed 01/14/2014 12:00 [...] sanofi pasteur PMC Fluzone > 12 Years [id number] Intramuscular Right Deltoid 01/12/2015 10/23/2014 141 Pneumococcal 01/11/2015 Pfizer, Inc. PFR Prevnar [id number] Intramuscular Left Deltoid 01/12/2015 03/19/2014 100 X 01/11/2015 Pfizer, Inc. PFR Prevnar [id number] Intramuscular Left Deltoid 01/12/2015 03/19/2014 100 History [...] Adenocarcinoma of rectum Nov 21 2016 8:39AM Payers Insurance Name Company Name Plan Name Plan Number Policy Number Policy Group Number Start Date BCBS Bcbs [facility] [id number] N/A BCBS Bcbs [facility] [id number] N/A BCBS Bcbs [facility] [id number] N/A BCBS Bcbs [facility] [id number] N/A History of Encounters Visit Date Visit Type Provider 11/21/2016 Laboratory OSCAR RODARTE 11/06/2016 Laboratory OSCAR [...] 06/09/2013 Office visit Oscar Jonas MD 06/07/2013 [facility] Oscar Jonas MD 06/06/2013 [facility] Oscar Jonas MD
--- OUTSIDE RECORDS SUMMARY | 2018-03-04 13:57 | XMS REPORT ---
Author Author OSCAR GODWIN [facility] Address [address] [place], [place] [id number] Care Team Providers Care Wildlife Technician Name Role Phone OSCAR GODWIN PCP OSCAR GODWIN PreferredProvider Allergies and Adverse Reactions Name Reaction Notes PENICILLINS Plan of Treatment Planned Activity Comments Planned Date Planned Time Plan/Goal CBC with Differential 03/26/2017 12:00 AM CMP 03/26/2017 12:00 AM Medications Active Name Start Date [...] AM ROUTINE VENIPUNCTURE Reviewed 03/26/2017 12:00 AM ROUTINE VENIPUNCTURE Reviewed 01/14/2014 12:00 [...] sanofi pasteur PMC Fluzone > 12 Years [id number] Intramuscular Right Deltoid 01/12/2015 10/23/2014 141 Pneumococcal 01/11/2015 [employer] PFR Prevnar [id number] Intramuscular Left Deltoid 01/12/2015 03/19/2014 100 X 01/11/2015 [employer] PFR Prevnar [id number] Intramuscular Left Deltoid 01/12/2015 03/19/2014 100 History [...] Adenocarcinoma of rectum Mar 26 2017 7:33AM Payers Insurance Name Company Name Plan Name Plan Number Policy Number Policy Group Number Start Date BCBS Bcbs [facility] [id number] Thursday, 2015 BCBS [employer] [place] [id number] N/A BCBS [employer] [place] [id number] N/A BCBS [facility]cbs [facility] [id number] N/A History of Encounters Visit Date Visit Type Provider 03/26/2017 Laboratory OSCAR RODARTE 02/26/2017 Laboratory OSCAR RODARTE 02/12/2017 Office visit OSCAR GODWIN PA 01/29/2017 [...] 12/29/2013 Office visit Oscar Jonas MD 12/26/2013 [facility] Oscar Jonas MD 06/19/2013 Hospital Oscar Jonas MD 06/09/2013 Office visit Oscar Jonas MD 06/07/2013 [facility] Oscar Jonas MD 06/06/2013 [facility] Oscar Jonas MD
--- OUTSIDE RECORDS SUMMARY | 2018-03-04 13:58 | XMS REPORT ---
Author Author OSCAR GODWIN [facility] Address [address] [place], [place] [address] Care Team Providers Care Electrical Research Engineer Name Role Phone OSCAR GODWIN PCP OSCAR GODWIN PreferredProvider Allergies and Adverse Reactions Name Reaction Notes PENICILLINS Plan of Treatment Planned Activity Comments Planned Date Planned Time Plan/Goal CBC with Differential 07/02/2017 12:00 AM CMP 07/02/2017 12:00 AM Medications Active Name Start Date [...] AM ROUTINE VENIPUNCTURE Reviewed 07/02/2017 12:00 AM ROUTINE VENIPUNCTURE Reviewed 01/14/2014 12:00 [...] sanofi pasteur PMC Fluzone > 12 Years [id number] Intramuscular Right Deltoid 01/12/2015 10/23/2014 141 Pneumococcal 01/11/2015 [employer] PFR Prevnar [id number] Intramuscular Left Deltoid 01/12/2015 03/19/2014 100 X 01/11/2015 [employer] PFR Prevnar [id number] Intramuscular Left Deltoid 01/12/2015 03/19/2014 100 History [...] Adenocarcinoma of rectum Jul 02 2017 8:48AM Payers Insurance Name Company Name Plan Name Plan Number Policy Number Policy Group Number Start Date BCBS [employer] [place] [id number] Thursday, 2015 [employer] [place] [id number] N/A [employer]BS [employer] [place] [id number] N/A [employer]BS [employer] [place] [id number] N/A History of Encounters Visit Date Visit Type Provider 07/02/2017 Laboratory OSCAR RODARTE 05/21/2017 Laboratory OSCAR [...] MD 12/26/2013 Hospital Oscar Jonas MD 06/19/2013 [facility] Oscar Jonas MD 06/09/2013 Office visit Oscar Jonas MD 06/07/2013 [facility] Oscar Jonas MD 06/06/2013 [facility] Oscar Jonas MD
--- OUTSIDE RECORDS SUMMARY | 2018-03-04 13:58 | XMS REPORT ---
Author Author OSCAR GODWIN [facility] Address [address] [place], [place] [address] Care Team Providers Care Head Waitress Name Role Phone OSCAR GODWIN PCP Unavailable OSCAR GODWIN PreferredProvider Unavailable Allergies and Adverse Reactions Name Reaction Notes PENICILLINS Plan of Treatment Planned Activity Comments Planned Date Planned Time Plan/Goal CBC with Differential 11/06/2016 12:00 AM CMP 11/06/2016 12:00 AM Medications Active Name Start Date [...] AM ROUTINE VENIPUNCTURE Reviewed 11/06/2016 12:00 AM ROUTINE VENIPUNCTURE Reviewed 01/14/2014 12:00 [...] 78 eGFR >60 mL/min/1.73meGFR AA * >60 10/09/2016 3:43 PM GLUCOSE 106.0 mg/dLSODIUM 139.0 mmol/LPOTASSIUM 4.50 mmol/ LCHLORIDE 106.0 mmol/LCO2 24.0 mmol/LBUN 26.0 mg/dLCREATININE 0.90 mg/dLSGOT/ AST 16.0 IU/LSGPT/ALT 17.0 IU/LALK PHOS 81.0 IU/LTOTAL PROTEIN 7.60 g/dLALBUMIN 4.30 g/dLTOTAL BILI 0.20 mg/dLCALCIUM 9.20 mg/dLAGE 61 GFR NonAA 64 GFR AA 78 eGFR >60 mL/min/1.73meGFR AA* >60 WBC 4.2 RBC 4.26 HGB 11.80 g/dLHCT 37.30 % MCV 88.0 fLMCH 27.70 pgMCHC 31.60 g/dLRDW SD 50 RDW CV 16.10 %MPV 10.20 fLPLT 208 NRBC# 0.02 NRBC% 0.5 %NEUT 55.30 %%LYMP 30.0 %%MONO 10.60 %%EOS 3.10 %%BASO 0.50 %#NEUT 2.34 #LYMP 1.27 #MONO 0.45 #EOS 0.13 #BASO 0.02 MANUAL DIFF NOT IND 10/23/2016 3:29 PM GLUCOSE 153.0 mg/dLSODIUM 139.0 mmol/LPOTASSIUM 3.80 mmol/ LCHLORIDE 104.0 mmol/LCO2 24.0 mmol/LBUN 21.0 mg/dLCREATININE 1.0 mg/dLSGOT/AST 19.0 IU/LSGPT/ALT 24.0 IU/LALK PHOS 81.0 IU/LTOTAL PROTEIN 7.20 g/dLALBUMIN 4.10 g/dLTOTAL BILI 0.30 mg/dLCALCIUM 9.0 mg/dLAGE 61 GFR NonAA 57 GFR AA 69 eGFR 57 eGFR AA* >60 WBC 3.5 RBC 4.41 HGB 12.0 g/dLHCT 39.10 %MCV 89.0 fLMCH 27.20 pgMCHC 30.70 g/dLRDW SD 54 RDW CV 18.0 %MPV 10.0 fLPLT 194 NRBC# 0.00 NRBC % 0.0 %NEUT 63.30 %%LYMP 24.10 %%MONO 9.70 %%EOS 1.70 %%BASO 0.60 %#NEUT 2.23 # LYMP 0.85 #MONO 0.34 #EOS 0.06 #BASO 0.02 MANUAL DIFF NOT IND History Of Immunizations Name Date Admin Mfg Name Mfg Code Trade Name Lot# Route Inj Vis Given Vis Pub CVX Influenza 01/11/2015 sanofi pasteur PMC Fluzone > 12 Years [id number] Intramuscular Right Deltoid 01/12/2015 10/23/2014 141 Pneumococcal 01/11/2015 [employer] Inc. PFR Prevnar [id number] Intramuscular Left Deltoid 01/12/2015 03/19/2014 100 X 01/11/2015 [employer] Inc. PFR Prevnar [id number] Intramuscular Left Deltoid 01/12/2015 03/19/2014 100 History [...] Adenocarcinoma of rectum Nov 06 2016 10:52AM Payers Insurance Name Company Name Plan Name Plan Number Policy Number Policy Group Number Start Date BCBS Bcbs [facility] [id number] N/A BCBS Bcbs [facility] [id number] N/A BCBS Bcbs [facility] [id number] N/A BCBS Bcbs [facility] [id number] N/A History of Encounters Visit Date Visit Type Provider 11/06/2016 Office visit OSCAR RODARTE 10/23/2016 Laboratory OSCAR RODARTE 10/09/2016 [...]
--- OUTSIDE RECORDS SUMMARY | 2018-03-04 13:59 | XMS REPORT ---
Author Author OSCAR GODWIN [facility] Address [address] [place], [place] [address] Care Team Providers Care Weigher Packing Name Role Phone OSCAR GODWIN PCP OSCAR GODWIN PreferredProvider Allergies and Adverse Reactions Name Reaction Notes PENICILLINS Plan of Treatment Planned Activity Comments Planned Date Planned Time Plan/Goal CBC with Differential 05/08/2017 12:00 AM CMP 05/08/2017 12:00 AM Medications Active Name Start Date [...] AM ROUTINE VENIPUNCTURE Reviewed 05/08/2017 12:00 AM ROUTINE VENIPUNCTURE Reviewed 01/14/2014 12:00 [...] sanofi pasteur PMC Fluzone > 12 Years [id number] Intramuscular Right Deltoid 01/12/2015 10/23/2014 141 Pneumococcal 01/11/2015 [employer] PFR Prevnar [id number] Intramuscular Left Deltoid 01/12/2015 03/19/2014 100 X 01/11/2015 [employer] Inc[employer] PFR Prevnar [id number] Intramuscular Left Deltoid 01/12/2015 03/19/2014 100 History [...] Adenocarcinoma of rectum May 08 2017 7:17AM Payers Insurance Name Company Name Plan Name Plan Number Policy Number Policy Group Number Start Date [employer]BS [employer] [place] [id number] Thursday, 2015 [employer] [place] [id number] N/A [employer] [place] [id number] N/A [employer] [place] [id number] N/A History of Encounters Visit Date Visit Type Provider 05/08/2017 Laboratory OSCAR GODWIN PA 04/23/2017 Laboratory [...] 06/09/2013 Office visit Oscar Jonas MD 06/07/2013 [facility] Oscar Jonas MD 06/06/2013 [facility] Oscar Jonas MD
--- OUTSIDE RECORDS SUMMARY | 2018-03-04 13:59 | XMS REPORT ---
Author Author OSCAR GODWIN [facility] Address [address] [place], [place] [address] Care Team Providers Care School Bus Aide Name Role Phone OSCAR GODWIN PCP OSCAR GODWIN PreferredProvider Allergies and Adverse Reactions Name Reaction Notes PENICILLINS Plan of Treatment Planned Activity Comments Planned Date Planned Time Plan/Goal CBC with Differential 04/09/2017 12:00 AM CMP 04/09/2017 12:00 AM Medications Active Name Start Date [...] AM ROUTINE VENIPUNCTURE Reviewed 04/09/2017 12:00 AM ROUTINE VENIPUNCTURE Reviewed 01/14/2014 12:00 [...] sanofi pasteur PMC Fluzone > 12 Years [id number] Intramuscular Right Deltoid 01/12/2015 10/23/2014 141 Pneumococcal 01/11/2015 [employer] PFR Prevnar [id number] Intramuscular Left Deltoid 01/12/2015 03/19/2014 100 X 01/11/2015 [employer] PFR Prevnar [id number] Intramuscular Left Deltoid 01/12/2015 03/19/2014 100 History [...] Adenocarcinoma of rectum Apr 09 2017 8:48AM Payers Insurance Name Company Name Plan Name Plan Number Policy Number Policy Group Number Start Date BCBS Bcbs [facility] [id number] Thursday, 2015 BCBS [employer] [place] [id number] N/A BCBS [employer] [place] [id number] N/A BCBS [facility] [id number] N/A History of Encounters Visit Date Visit Type Provider 04/09/2017 Laboratory OSCAR GODWIN PA 03/26/2017 Laboratory [...]
--- OUTSIDE RECORDS SUMMARY | 2018-03-04 13:59 | XMS REPORT ---
Author Author OSCAR GODWIN [facility] Address [address] [place], [place] [phone] Care Team Providers Care Electronic Warfare Operator Name Role Phone OSCAR GODWIN PCP Unavailable OSCAR GODWIN PreferredProvider Unavailable Allergies and Adverse Reactions Name Reaction Notes PENICILLINS Plan of Treatment Planned Activity Comments Planned Date Planned Time Plan/Goal CBC with Differential 01/01/2017 12:00 AM CMP 01/01/2017 12:00 AM Medications Active Name Start Date [...] AM ROUTINE VENIPUNCTURE Reviewed 01/01/2017 12:00 AM ROUTINE VENIPUNCTURE Reviewed 01/14/2014 12:00 [...] sanofi pasteur PMC Fluzone > 12 Years [id number] Intramuscular Right Deltoid 01/12/2015 10/23/2014 141 Pneumococcal 01/11/2015 [employer] PFR Prevnar [id number] Intramuscular Left Deltoid 01/12/2015 03/19/2014 100 X 01/11/2015 [employer] Inc[employer] PFR Prevnar [id number] Intramuscular Left Deltoid 01/12/2015 03/19/2014 100 History [...] Adenocarcinoma of rectum Jan 01 2017 10:35AM Payers Insurance Name Company Name Plan Name Plan Number Policy Number Policy Group Number Start Date BCBS Bcbs [facility] [id number] N/A BCBS [facility] [facility] [place] [id number] N/A [employer] [facility] [place] [id number] N/A BCBS [facility] [facility] [place] [id number] N/A History of Encounters Visit Date Visit Type Provider 01/01/2017 Laboratory OSCAR GODWIN PA 12/18/2016 Laboratory OSCAR GODWIN PA 12/05/2016 Laboratory OSCAR GODWIN PA 11/21/2016 Laboratory OSCAR GODWIN PA 11/06/2016 Laboratory OSCAR GODWIN PA 10/23/2016 Laboratory OSCAR GODWIN PA 10/09/2016 Laboratory OSCAR GODWIN PA 09/25/2016 Laboratory OSCAR GODWIN PA 07/06/2015 Office visit OSCAR RODARTE 01/22/2015 [facility] Oscar Jonas MD 01/11/2015 Office visit Oscar Jonas MD 01/14/2014 Nurse visit Oscar Jonas MD 01/12/2014 Office visit Oscar Jonas MD 01/05/2014 Office visit Oscar Jonas MD 12/29/2013 Office visit Oscar Jonas MD 12/26/2013 [facility] Oscar Jonas MD 06/19/2013 [facility] Oscar Jonas MD 06/09/2013 Office visit Oscar Jonas MD 06/07/2013 [facility] Oscar Jonas MD 06/06/2013 [facility] Oscar Jonas MD
--- OUTSIDE RECORDS SUMMARY | 2018-03-04 13:59 | XMS REPORT ---
Author Author Oscar Jonas [facility] Address [address] [place], [place] [address] Care Team Providers Care Sheep Herder Name Role Phone Oscar Jonas PCP Unavailable [...] of Procedures Date Ordered Description Order Status 01/14/2014 12:00 AM FLU VAC NO PRSV [...] 0.11 # BASO 0.03 History Of Immunizations Not available. History of Past Illness Name Date of [...] of Colon Cancer Jan 11 2015 2:47PM Payers Insurance Name Company Name Plan Name Plan Number Policy Number Policy Group Number Start Date [employer]bs [employer] [facility] [place] [id number] N/A [employer] [facility] [place] [id number] N/A [employer] [facility] [place] [id number] N/A History of Encounters Visit Date Visit Type Provider 01/11/2015 Office visit Oscar Jonas MD 01/14/2014 Nurse visit Oscar Jonas MD 01/12/2014 Office visit Oscar Jonas MD 01/05/2014 Office visit Oscar Jonas MD 12/29/2013 Office visit Oscar Jonas MD 12/26/2013 [facility] Oscar Jonas MD 06/19/2013 [facility] Oscar Jonas MD 06/09/2013 Office visit Oscar Jonas MD 06/07/2013 [facility] Oscar Jonas MD 06/06/2013 [facility] Oscar Jonas MD
--- OUTSIDE RECORDS SUMMARY | 2018-03-04 14:00 | XMS REPORT ---
Author Author OSCAR GODWIN [facility] Address [address] [place], [place] [phone] Care Team Providers Care Sanitary Plumber Name Role Phone OSCAR GODWIN PCP Unavailable OSCAR GODWIN PreferredProvider Unavailable Allergies and Adverse Reactions Name Reaction Notes PENICILLINS Plan of Treatment Planned Activity Comments Planned Date Planned Time Plan/Goal Injection, Subcutaneous/IM 02/12/2017 12:00 AM Medications Active Name Start Date [...] Returned 01/29/2017 12:00 AM ROUTINE VENIPUNCTURE Reviewed 01/14/2014 12:00 [...] sanofi pasteur PMC Fluzone > 12 Years [id number] Intramuscular Right Deltoid 01/12/2015 10/23/2014 141 Pneumococcal 01/11/2015 [employer] Inc[employer] PFR Prevnar [id number] Intramuscular Left Deltoid 01/12/2015 03/19/2014 100 X 01/11/2015 [employer] Inc[employer] PFR Prevnar [id number] Intramuscular Left Deltoid 01/12/2015 03/19/2014 100 History [...] 6:56AM Sinus pressure Feb 12 2017 6:56AM Payers Insurance Name Company Name Plan Name Plan Number Policy Number Policy Group Number Start Date BCBS [employer] [place] [id number] N/A [employer] [facility] [facility] [place] [id number] N/A [employer] [place] [id number] N/A [employer]BS [employer] [facility] [place] [id number] N/A History of Encounters Visit Date Visit Type Provider 02/12/2017 Office visit OSCAR RODARTE 01/29/2017 Laboratory OSCAR RODARTE 01/01/2017 Laboratory OSCAR RODARTE 12/18/2016 Laboratory OSCAR RODARTE 12/05/2016 Laboratory OSCAR RODARTE 11/21/2016 Laboratory OSCAR RODARTE 11/06/2016 Laboratory OSCAR RODARTE 10/23/2016 Laboratory OSCAR RODARTE 10/09/2016 Laboratory OSCAR RODARTE 09/25/2016 Laboratory OSCAR RODARTE 07/06/2015 Office visit OSCAR RODARTE 01/22/2015 [facility] Oscar Jonas MD 01/11/2015 Office visit Oscar Jonas MD 01/14/2014 Nurse visit Oscar Jonas MD 01/12/2014 Office visit Oscar Jonas MD 01/05/2014 Office visit Oscar Jonas MD 12/29/2013 Office visit Oscar Jonas MD 12/26/2013 [facility] Oscar Jonas MD 06/19/2013 [facility] Oscar Jonas MD 06/09/2013 Office visit Oscar Jonas MD 06/07/2013 [facility] Oscar Jonas MD 06/06/2013 [facility] Oscar Jonas MD
--- OUTSIDE RECORDS SUMMARY | 2018-03-04 14:00 | XMS REPORT ---
Author Author OSCAR GODWIN [facility] Address [address] [place], [place] [address] Care Team Providers Care Pole Frame Construction Worker Name Role Phone OSCAR GODWIN PCP Unavailable Allergies and Adverse Reactions Name Reaction Notes PENICILLINS Plan of Treatment Planned Activity Comments Planned Date Planned Time Plan/Goal CBC with Differential 09/25/2016 12:00 AM CMP 09/25/2016 12:00 AM Medications Active Name Start Date [...] 13 MARGARITO IM Reviewed 09/25/2016 12:00 AM ROUTINE VENIPUNCTURE Reviewed 01/14/2014 12:00 [...] 88 eGFR >60 mL/min/1.73m eGFR AA* >60 History Of Immunizations Name Date Admin [facility] [place] [place] Name Mfg Code Trade Name Lot# Route Inj Vis Given Vis Pub CVX Influenza 01/11/2015 sanofi pasteur PMC Fluzone > 12 Years [id number] Intramuscular Right Deltoid 01/12/2015 10/23/2014 141 Pneumococcal 01/11/2015 Pf[employer] Inc. PFR Prevnar [id number] Intramuscular Left Deltoid 01/12/2015 03/19/2014 100 X 01/11/2015 [employer] Inc. PFR Prevnar [id number] Intramuscular Left Deltoid 01/12/2015 03/19/2014 100 History [...] Adenocarcinoma of rectum Sep 25 2016 10:16AM Payers Insurance Name Company Name Plan Name Plan Number Policy Number Policy Group Number Start Date BCBS Bcbs [facility] [id number] N/A BCBS Bcbs [facility] [id number] N/A BCBS Bcbs [facility] [id number] N/A BCBS Bcbs [facility] [id number] N/A History of Encounters Visit Date Visit Type Provider 09/25/2016 Laboratory OSCAR RODARTE 07/06/2015 Office visit OSCAR RODARTE 01/22/2015 Hospital Oscar Jonas MD 01/11/2015 Office visit Oscar Jonas MD 01/14/2014 Nurse visit Oscar Jonas MD 01/12/2014 Office visit Oscar Jonas MD 01/05/2014 Office visit Oscar Jonas MD 12/29/2013 Office visit Oscar Jonas MD 12/26/2013 Hospital Oscar Jonas MD 06/19/2013 [facility] Oscar Jonas MD 06/09/2013 Office visit Oscar Jonas MD 06/07/2013 [facility] Oscar Jonas MD 06/06/2013 [facility] Oscar Jonas MD
--- OUTSIDE RECORDS SUMMARY | 2018-03-04 14:00 | XMS REPORT ---
Author Author OSCAR GODWIN [facility] Address [address] [place], [place] [address] Care Team Providers Care Oracle Business Intelligence Developer Name Role Phone OSCAR GODWIN PCP Unavailable OSCAR GODWIN PreferredProvider Unavailable Allergies and Adverse Reactions Name Reaction Notes PENICILLINS Plan of Treatment Planned Activity Comments Planned Date Planned Time Plan/Goal CBC with Differential 12/18/2016 12:00 AM CMP 12/18/2016 12:00 AM Medications Active Name Start Date [...] AM ROUTINE VENIPUNCTURE Reviewed 12/18/2016 12:00 AM ROUTINE VENIPUNCTURE Reviewed 01/14/2014 12:00 [...] sanofi pasteur PMC Fluzone > 12 Years [id number] Intramuscular Right Deltoid 01/12/2015 10/23/2014 141 Pneumococcal 01/11/2015 [employer] PFR Prevnar [id number] Intramuscular Left Deltoid 01/12/2015 03/19/2014 100 X 01/11/2015 Pf[employer] Inc. PFR Prevnar [id number] Intramuscular Left Deltoid 01/12/2015 03/19/2014 100 History [...] Adenocarcinoma of rectum Dec 18 2016 11:03AM Payers Insurance Name Company Name Plan Name Plan Number Policy Number Policy Group Number Start Date BCBS Bcbs [facility] [id number] N/A BCBS Bcbs [facility] [id number] N/A BCBS Bcbs [facility] [id number] N/A BCBS Bcbs [facility] [id number] N/A History of Encounters Visit Date Visit Type Provider 12/18/2016 Laboratory OSCAR GODWIN PA 12/05/2016 Laboratory OSCAR GODWIN PA 11/21/2016 Laboratory OSCAR GODWIN PA 11/06/2016 Laboratory OSCAR GODWIN PA 10/23/2016 Laboratory OSCAR GODWIN PA 10/09/2016 Laboratory OSCAR GODWIN PA 09/25/2016 Laboratory OSCAR GODWIN PA 07/06/2015 Office visit OSCAR RODARTE 01/22/2015 [facility] Oscar Jonas MD 01/11/2015 Office visit Oscar Jonas MD 01/14/2014 Nurse visit Oscar Jonas MD 01/12/2014 Office visit Oscar Jonas MD 01/05/2014 Office visit Oscar Jonas MD 12/29/2013 Office visit Oscar Jonas MD 12/26/2013 [facility] Oscar Jonas MD 06/19/2013 [facility] Oscar Jonas MD 06/09/2013 Office visit Oscar Jonas MD 06/07/2013 [facility] Oscar Jonas MD 06/06/2013 [facility] Oscar Jonas MD
--- OUTSIDE RECORDS SUMMARY | 2018-03-04 14:01 | XMS REPORT ---
Author Author OSCAR GODWIN [facility] Address [address] [place], [place] [address] Care Team Providers Care Timber Sprinkler Name Role Phone OSCAR GODWIN PCP Unavailable [...] sanofi pasteur PMC Fluzone > 12 Years [id number] Intramuscular Right Deltoid 01/12/2015 10/23/2014 141 Pneumococcal 01/11/2015 [employer] PFR Prevnar [id number] Intramuscular Left Deltoid 01/12/2015 03/19/2014 100 X 01/11/2015 [employer] Inc[employer] PFR Prevnar [id number] Intramuscular Left Deltoid 01/12/2015 03/19/2014 100 History [...] Policy Group Number Start Date BCBS Bcbs [facility] [id number] N/A BCBS Bcbs [facility] [id number] N/A BCBS Bcbs [facility] [id number] N/A BCBS Bcbs [facility] [id number] N/A History of Encounters Visit Date Visit Type Provider 12/18/2016 Laboratory OSCAR GODWIN PA 12/05/2016 Laboratory OSCAR GODWIN PA 11/21/2016 Laboratory OSCAR GODWIN PA 11/06/2016 Laboratory OSCAR GODWIN PA 10/23/2016 Laboratory OSCAR GODWIN PA 10/09/2016 Laboratory OSCAR GODWIN PA 09/25/2016 Laboratory OSCAR GODWIN PA 07/06/2015 Office visit OSCAR RODARTE 01/22/2015 [facility] Oscar Jonas MD 01/11/2015 Office visit Oscar Jonas MD 01/14/2014 Nurse visit Oscar Jonas MD 01/12/2014 Office visit Oscar Jonas MD 01/05/2014 Office visit Oscar Jonas MD 12/29/2013 Office visit Oscar Jonas MD 12/26/2013 [facility] Oscar Jonas MD 06/19/2013 [facility] Oscar Jonas MD 06/09/2013 Office visit Ocsar Jonas MD 06/07/2013 [facility] Oscar Jonas MD 06/06/2013 [facility] Oscar Jonas MD
--- OUTSIDE RECORDS SUMMARY | 2018-03-04 14:01 | XMS REPORT ---
Author Author OSCAR GODWIN [facility] Address [address] [place], [place] [address] Care Team Providers Care Lasting Room Supervisor Name Role Phone OSCAR GODWIN PCP Unavailable OSCAR GODWIN PreferredProvider Unavailable Allergies and Adverse Reactions Name Reaction Notes PENICILLINS Plan of Treatment Planned Activity Comments Planned Date Planned Time Plan/Goal CBC with Differential 12/05/2016 12:00 AM CMP 12/05/2016 12:00 AM Medications Active Name Start Date [...] AM ROUTINE VENIPUNCTURE Reviewed 12/05/2016 12:00 AM ROUTINE VENIPUNCTURE Reviewed 01/14/2014 12:00 [...] sanofi pasteur PMC Fluzone > 12 Years [id number] Intramuscular Right Deltoid 01/12/2015 10/23/2014 141 Pneumococcal 01/11/2015 [employer] PFR Prevnar [id number] Intramuscular Left Deltoid 01/12/2015 03/19/2014 100 X 01/11/2015 Pf[employer] Inc. PFR Prevnar [id number] Intramuscular Left Deltoid 01/12/2015 03/19/2014 100 History [...] Adenocarcinoma of rectum Dec 05 2016 7:20AM Payers Insurance Name Company Name Plan Name Plan Number Policy Number Policy Group Number Start Date BCBS Bcbs [facility] [id number] N/A BCBS [employer]cbs [facility] [id number] N/A BCBS [employer]cbs [facility] [id number] N/A BCBS [employer]cbs [facility] [id number] N/A History of Encounters Visit Date Visit Type Provider 12/05/2016 Laboratory OSCAR RODARTE 11/21/2016 Laboratory OSCAR [...] 12/29/2013 Office visit Oscar Jonas MD 12/26/2013 [facility] Oscar Jonas MD 06/19/2013 [facility] Oscar Jonas MD 06/09/2013 Office visit Oscar Jonas MD 06/07/2013 [facility] Oscar Jonas MD 06/06/2013 [facility] Oscar Jonas MD
--- OUTSIDE RECORDS SUMMARY | 2018-03-04 14:01 | XMS REPORT ---
Author Author OSCAR GODWIN [facility] Address [address] [place], [place] [id number] Care Team Providers Care Radio Personality Name Role Phone OSCAR GODWIN PCP OSCAR GODWIN PreferredProvider Allergies and Adverse Reactions Name Reaction Notes PENICILLINS Plan of Treatment Planned Activity Comments Planned Date Planned Time Plan/Goal CBC with Differential 07/16/2017 12:00 AM CMP 07/16/2017 12:00 AM Medications Active Name Start Date [...] AM ROUTINE VENIPUNCTURE Reviewed 07/16/2017 12:00 AM ROUTINE VENIPUNCTURE Reviewed 01/14/2014 12:00 [...] sanofi pasteur PMC Fluzone > 12 Years [id number] Intramuscular Right Deltoid 01/12/2015 10/23/2014 141 Pneumococcal 01/11/2015 Pf[employer] Inc. PFR Prevnar [id number] Intramuscular Left Deltoid 01/12/2015 03/19/2014 100 X 01/11/2015 Pf[employer], Inc. PFR Prevnar [id number] Intramuscular Left Deltoid 01/12/2015 03/19/2014 100 History [...] Adenocarcinoma of rectum Jul 16 2017 7:40AM Payers Insurance Name Company Name Plan Name Plan Number Policy Number Policy Group Number Start Date [employer] [place] [id number] Thursday, 2015 [employer] [place] [id number] N/A [employer] [place] [id number] N/A [employer] [place] [id number] N/A History of Encounters Visit Date Visit Type Provider 07/16/2017 Laboratory OSCAR RODARTE 07/02/2017 Laboratory OSCAR [...] 11/06/2016 Laboratory OSCAR RODARTE 10/23/2016 Laboratory OSCAR GODWIN PA 10/09/2016 Laboratory OSCAR GODWIN PA 09/25/2016 Laboratory OSCAR GODWIN PA 07/06/2015 Office visit OSCAR GODWIN PA 01/22/2015 Hospital Oscar Jonas MD 01/11/2015 Office visit Oscar Jonas MD 01/14/2014 Nurse visit Oscar Jonas MD 01/12/2014 Office visit Oscar Jonas MD 01/05/2014 Office visit Oscar Jonas MD 12/29/2013 Office visit Oscar Jonas MD 12/26/2013 [facility] Oscar Jonas MD 06/19/2013 [facility] Oscar Jonas MD 06/09/2013 Office visit Oscar Jonas MD 06/07/2013 [facility] Oscar Jonas MD 06/06/2013 [facility] Oscar Jonas MD
--- OUTSIDE RECORDS SUMMARY | 2018-03-04 14:02 | XMS REPORT ---
Author Author OSCAR GODWIN [facility] Address [address] [place], [place] [id number] Care Team Providers Care Instrumentation Technician Name Role Phone OSCAR GODWIN PCP Unavailable [...] Returned 09/25/2016 12:00 AM ROUTINE VENIPUNCTURE Reviewed 01/14/2014 [...] sanofi pasteur PMC Fluzone > 12 Years [id number] Intramuscular Right Deltoid 01/12/2015 10/23/2014 141 Pneumococcal 01/11/2015 Pf[employer] Inc[employer] PFR Prevnar [id number] Intramuscular Left Deltoid 01/12/2015 03/19/2014 100 X 01/11/2015 Pf[employer] Inc[employer] PFR Prevnar [id number] Intramuscular Left Deltoid 01/12/2015 03/19/2014 100 History [...] Group Number Start Date [employer] [place] [id number] N/A [employer] [place] [id number] N/A [employer] [place] [id number] N/A [employer] [place] [id number] N/A History of Encounters Visit Date Visit Type Provider 09/25/2016 Laboratory OSCAR RODARTE 07/06/2015 Office visit OSCAR RODARTE 01/22/2015 [facility] Oscar Jonas MD 01/11/2015 Office visit Oscar Jonas MD 01/14/2014 Nurse visit Oscar Jonas MD 01/12/2014 Office visit Oscar Jonas MD 01/05/2014 Office visit Oscar Jonas MD 12/29/2013 Office visit Oscar Jonas MD 12/26/2013 [facility] Oscar Jonas MD 06/19/2013 [facility] Oscar Jonas MD 06/09/2013 Office visit Oscar Jonas MD 06/07/2013 [facility] Oscar Jonas MD 06/06/2013 [facility] Oscar Jonas MD
--- OUTSIDE RECORDS SUMMARY | 2018-03-04 14:03 | XMS REPORT ---
Author Author OSCAR GODWIN [facility] Address [address] [place], [place] [phone] Care Team Providers Care Acquisition Consultant Name Role Phone OSCAR GODWIN PCP Unavailable OSCAR GODWIN PreferredProvider Unavailable Allergies and Adverse Reactions Name Reaction Notes PENICILLINS Plan of Treatment Planned Activity Comments Planned Date Planned Time Plan/Goal Injection, Subcutaneous/IM 02/12/2017 12:00 AM CBC with Differential 02/12/2017 12:00 AM CMP 02/12/2017 12:00 AM Medications Active Name Start [...] AM ROUTINE VENIPUNCTURE Reviewed 02/12/2017 12:00 AM ROUTINE VENIPUNCTURE Reviewed 01/14/2014 12:00 [...] sanofi pasteur PMC Fluzone > 12 Years [id number] Intramuscular Right Deltoid 01/12/2015 10/23/2014 141 Pneumococcal 01/11/2015 Pf[employer], Inc. PFR Prevnar [id number] Intramuscular Left Deltoid 01/12/2015 03/19/2014 100 X 01/11/2015 Pf[employer] Inc[employer] 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
--- OUTSIDE RECORDS SUMMARY | 2018-03-04 14:04 | XMS REPORT ---
Author Author OSCAR GODWIN [facility] Address [address] [place], [place] [id number] Care Team Providers Care Editor In Chief Newspaper Name Role Phone OSCAR GODWIN PCP Unavailable [...] by oral route 3 times per day prednisone 20 mg oral tablet 07/06/2015 07/14/2015 4x2 days 3x2 days 2x2 days 1x2 days Name Start Date Expiration Date SIG Comments Suphedrine 30 mg oral tablet 07/06/2015 07/06/2015 [...] sanofi pasteur PMC Fluzone > 12 Years [id number] Intramuscular Right Deltoid 01/12/2015 10/23/2014 141 PCV 01/11/2015 Pf[employer] Inc[employer] PFR Prevnar [id number] Intramuscular Left Deltoid 01/12/2015 03/19/2014 100 X 01/11/2015 Pf[employer] Inc[employer] PFR Prevnar [id number] Intramuscular Left Deltoid 01/12/2015 03/19/2014 100 History [...] Ear pressure, bilateral Jul 06 2015 3:35PM Payers Insurance Name Company Name Plan Name Plan Number Policy Number Policy Group Number Start Date [employer] [place] [id number] N/A [employer] [place] [id number] N/A [employer] [place] [id number] N/A [employer] [place] [id number] N/A History of Encounters Visit Date Visit Type Provider 07/06/2015 Office visit OSCAR RODARTE 01/22/2015 The [...]
--- OUTSIDE RECORDS SUMMARY | 2018-03-04 14:05 | XMS REPORT ---
Author Author OSCAR GODWIN [facility] Address [address] [place], [place] [address] Care Team Providers Care Caustic Preparer Name Role Phone OSCAR GODWIN PCP Unavailable OSCAR GODWIN PreferredProvider Unavailable Allergies and Adverse Reactions Name Reaction Notes PENICILLINS Plan of Treatment Planned Activity Comments Planned Date Planned Time Plan/Goal CBC with Differential 10/23/2016 12:00 AM CMP 10/23/2016 12:00 AM Medications Active Name Start Date [...] AM ROUTINE VENIPUNCTURE Reviewed 10/23/2016 12:00 AM ROUTINE VENIPUNCTURE Reviewed 01/14/2014 12:00 [...] 0.13 #BASO 0.02 MANUAL DIFF NOT IND History Of Immunizations Name Date Admin Mfg Name Mfg Code Trade Name Lot# Route Inj Vis Given Vis Pub CVX Influenza 01/11/2015 sanofi pasteur PMC Fluzone > 12 Years [id number] Intramuscular Right Deltoid 01/12/2015 10/23/2014 141 Pneumococcal 01/11/2015 Pfizer, Inc. PFR Prevnar [id number] Intramuscular Left Deltoid 01/12/2015 03/19/2014 100 X 01/11/2015 Pfizer, Inc. PFR Prevnar [id number] Intramuscular Left Deltoid 01/12/2015 03/19/2014 100 History [...] Adenocarcinoma of rectum Oct 23 2016 8:47AM Payers Insurance Name Company Name Plan Name Plan Number Policy Number Policy Group Number Start Date [employer] [place] [id number] N/A [employer] [place] [id number] N/A [employer] [place] [id number] N/A [employer] [place] [id number] N/A History of Encounters Visit Date Visit Type Provider 10/23/2016 Laboratory OSCAR RODARTE 10/09/2016 Laboratory OSCAR RODARTE 09/25/2016 Laboratory OSCAR RODARTE 07/06/2015 Office visit OSCAR RODARTE 01/22/2015 Hospital Oscar Jonas MD 01/11/2015 Office visit Oscar Jonas MD 01/14/2014 Nurse visit Oscar Jonas MD 01/12/2014 Office visit Oscar Jonas MD 01/05/2014 Office visit Oscar Jonas MD 12/29/2013 Office visit Oscar Jonas MD 12/26/2013 [facility] Oscar Jonas MD 06/19/2013 [facility] Oscar Jonas MD 06/09/2013 Office visit Oscar Jonas MD 06/07/2013 [facility] Oscar Jonas MD 06/06/2013 [facility] Oscar Jonas MD
--- OUTSIDE RECORDS SUMMARY | 2018-03-04 14:06 | XMS REPORT | CCD ---
Author Author YADI SIFUENTES Unknown Address [address] [place], [place] [phone] Care Team Providers Care Golf Club Repairer Name Role Phone JAYCEE PRIEST MD Vital Signs Vital Sign Value Unit Date/Time Recent/Initial? Weight Measured 195 lbs 12/25/2013 11:11 Initial VS Height 64 in 12/25/2013 11:11 Initial VS BMI (Body Mass Index) 33.47 kg/m^2 12/25/2013 11:11 Initial VS BSA (Body Surface Area) 2 m^2 12/25/2013 11:11 Initial VS Allergies Allergy Code Allergy Type Reaction Status PCN (penicillin) 0 Drug allergy Active Procedures Procedure Code Procedure Type Date INCISION W REMOVAL FOREIGN BODY OR 8605 ICD-9 CM, Volume 3 12/26/2013 INSERTION OF IMPLANTABLE VASCULAR 8607 ICD-9 CM, Volume 3 12/26/2013 NONEXCIS DBRIDEMNT WOUND 8628 ICD-9 CM, Volume 3 2013 FLUOROSCOPY < [id number] 12/26/2013 ^CULT ANAEROBIC 229525981 SNOMED CT 12/26/2013 ^CULT ANAEROBIC 238664145 SNOMED CT 12/26/2013 ^CULT ANAEROBIC 950268639 SNOMED CT 12/26/2013 CULTURE MISC [id number] SNOMED CT 12/26/2013 CULTURE MISC [id number] SNOMED CT 12/26/2013 CULTURE MISC 054643205 SNOMED CT 12/26/2013 History of Immunizations Unknown or Not Available. Problems Problem Code Start Date Resolved Date Status Rectal bleeding 70750512 06/06/2013 Active Anemia 385841874 06/06/2013 Active Results Unknown or Not Available. Medications Medication Code Dose Units Frequency Route Modification Start Date/Time Stop Date/Time Tylenol 325MG Oral Tablet 526278 325 MILLIGRAMS NEEDED ORAL 06/07/2013 10:46 Emma-C 0 1 TABLET DAILY ORAL 06/07/2013 10:46 Glucosamine 500MG Oral Tablet 067942 500 MILLIGRAMS DAILY ORAL 06/07/2013 10:46 Niferex-150 [id number] Oral Capsule 438128 1 CAP BEFORE TWO MEALS BY MOUTH 06/07/2013 11:32 Zolpidem 10MG Oral Tablet 543302 10 MILLIGRAMS AT BEDTIME ORAL Medications Administered Unknown or Not Available. Encounters Encounter Diagnosis Diagnosis Code Start Date FIT ADJ VASCULAR CATH V5881 12/26/2013 Social History Smoking Status Code Start Date End Date Never smoker [id number] Patient Decision Aids Unknown or Not Available. Discharge Instructions You were admitted to [facility] on 12/26/2013 with a principal diagnosis of FIT ADJ VASCULAR CATH. You had the following procedures done: BARBY SUBQ TISSUE 20 SQ CM /< INSERT TUNNELED CV CATH REMOVAL TUNNELED CV CATH You were discharged from [facility] on 12/26/2013. Should you have any questions prior to discharge, please contact a member of your healthcare team. If you have left the hospital and have any questions, please contact your primary care physician. Chief Complaint and Reason For Visit Chief Complaint Date of Onset GEN PORT A CATH REMOVE AND INSERT PORT Function Status Unknown or Not Available. Plan of Care Unknown or Not Available. Referral/Transition of Care Unknown or Not Available.
--- OUTSIDE RECORDS SUMMARY | 2018-03-04 14:06 | XMS REPORT | Continuity of Care Document ---
Demographics x Preferred Language Unknown Marital Status Unknown Sabianist Affiliation Unknown Race Unknown Ethnic Group Unknown Author Author [facility] Organization [facility] Address Unknown Phone Unavailable Allergies Active Description Code Type Severity Reaction Onset Reported/Identified Relationship to Patient Clinical Status Yes PCN (penicillin) 01409752 CLASS N/A N/A Yes penicillin NKMA N/A [id number] 10/08/2013 Yes penicillin NKMA N/A [id number] 10/08/2013 Yes No Known Drug Allergies [id number] Drug Allergy Unknown N/A 11/08/2017 Yes Penicillins [id number] Drug Allergy Unknown N/A 11/08/2017 Medications Medication Packaging Start Date Stop Date Route Dosage Sig glucosamine(glucosamine) 1 tabs Oral 1 tabs , Oral, Daily metoclopramide(metoclopramide) 2 mL 10/08/2013 10/09/2013 IV Push 10 mg 10 mg, IV Push, q4hr, PRN: Nausea heparin(heparin) 1 mL 10/08/2013 10/09/2013 SubCutaneous 5,000 units 5,000 units, SubCutaneous, Once riTUXimab(Rituxan) 10/09/2013 05/17/2016 IV unknown, IV, qMonth HYDROmorphone(Dilaudid) 0.2 mL 10/09/2013 IV Push 0.4 mg 0.4 mg, IV Push, q5min, PRN: Pain Lactated Ringers Injection(Lactated Ringers Injection 1,000 mL) 1,000 mL 10/09/2013 10/09/2013 IV 10 mL/hr, IV midazolam(Versed) 2 mL 10/09/2013 10/09/2013 IV Push 2 mg 2 mg, IV Push, Once alvimopan(Entereg) 1 caps 201310/09/2013 Oral 12 mg 12 mg, Oral, Once Lactated Ringers Injection(Lactated Ringers Injection 1,000 mL) 1,000 mL 10/09/2013 10/09/2013 IV 10 mL/hr, IV HYDROmorphone(HYDROmorphone) 0.25 mL 10/09/2013 10/09/2013 IV Push 0.5 mg 0.5 mg, IV Push, q10min, PRN: Pain HYDROmorphone(Dilaudid TEXTILE CONVERTER 1 mg/mL 30 mg) 30 mL 10/10/2013 10/10/2013 IV 30 mg TEXTILE CONVERTER, IV, Stop: 12/09/13 0:10:00 CDT HYDROmorphone(Dilaudid) 201310/13/2013 IV Push 0.5 - 1.0mg, IV Push, q2hr, PRN: Pain enoxaparin(enoxaparin) 0.4 mL 10/1010/13/2013 SubCutaneous 40 mg 40 mg, SubCutaneous, Daily metoclopramide(Reglan) 2 mL 201310/13/2013 IV Push 10 mg 10 mg, IV Push, q6hr, PRN: Nausea or Vomiting HYDROcodone-acetaminophen(Ferron 5 mg-325 mg oral tablet) 10/10/2013 10/13/2013 Oral 1-2 tabs, Oral, q4hr, PRN: Pain ondansetron(Zofran) 2 mL 201310/13/2013 IV Push 4 mg 4 mg, IV Push, q6hr, PRN: Nausea or Vomiting ketorolac(Toradol) 1 mL 10/10/2013 10/13/2013 IV Push 15 mg 15 mg, IV Push, q6hr Lactated Ringers Injection(Lactated Ringers Injection 1000 mL) 1,000 mL 10/10/2013 10/10/2013 IV 1000, IV magnesium oxide(magnesium oxide) 2 tabs 10/10/2013 10/11/2013 Oral 800 mg 800 mg, Oral, BIDWM HYDROcodone-acetaminophen(Ferron 5 mg-325 mg oral tablet) 10/10/2013 05/17/2016 Oral 1-2 tabs, Oral, q4hr, PRN: Pain ibuprofen(ibuprofen 800 mg oral tablet) 1 tabs 10/11/2013 05/17/2016 Oral 800 mg 1 tabs, Oral, TID, 30 tabs, PRN: as needed for pain levofloxacin(Levaquin 500 mg oral tablet) 1 tabs 11/05/2013 11/12/2013 Oral 500 mg 1 tabs, Oral, q24hr, 7 tabs metroNIDAZOLE(Flagyl 500 mg oral tablet) 1 tabs 11/05/2013 11/12/2013 Oral 500 mg 1 tabs, Oral, BID, 14 tabs Problems Date Dx Coded Attending Type Code Diagnosis Diagnosed By BILL GREGORY MD, Ot C20 MALIGNANT NEOPLASM OF RECTUM BILL GREGORY MD, Ot 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 BILL GREGORY MD, Ot 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 BILL GREGORY MD, Ot 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 BILL GREGORY MD, Ot 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 BILL GREGORY MD, Ot C79.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 BILL GREGORY MD, Ot I10 ESSENTIAL (PRIMARY) HYPERTENSION BILL GREGORY MD, Ot M25.552 PAIN IN LEFT HIP BILL GREGORY MD, Ot Z51.11 ENCOUNTER FOR ANTINEOPLASTIC CHEMOTHERAP BILL GREGORY MD, Ot Z79.899 OTHER TIRE BALANCER (CURRENT) DRUG THERAPY BILL GREGORY MD, Ot Z93.3 COLOSTOMY STATUS 06/16/2013 Megha IBRAHIM, Hamlet Hernandez Final 154.1 RECTUM CA 06/16/2013 Hamlet Cleveland MD Final 785.6 ENLARGEMENT LYMPH NODES 05/17/2016 Jordon De Leon Final C20 Malignant neoplasm of rectum 11/23/2017 BILL GREGORY MD, Ot C20 MALIGNANT NEOPLASM OF RECTUM 11/23/2017 BILL GREGORY MD, Ot M25.552 PAIN IN LEFT HIP 11/23/2017 BILL GREGORY MD, Ot M48.061 SPINAL STENOSIS, LUMBAR REGION WITHOUT N 11/23/2017 BILL GREGORY MD, Ot M48.07 SPINAL STENOSIS, LUMBOSACRAL REGION 11/23/2017 BILL GREOGRY MD, Ot M99.73 CONN TISS AND DISC STENOS OF INTVRT FORA 11/23/2017 BILL GREGORY MD, Ot N28.89 OTHER SPECIFIED DISORDERS OF KIDNEY AND 11/23/2017 BILL GREGORY MD, Ot R19.09 OTHER INTRA-ABDOMINAL AND PELVIC SWELLIN 12/18/2017 BILL GREGORY MD, Ot C20 MALIGNANT NEOPLASM OF RECTUM 12/18/2017 BILL GREGORY MD, Ot 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 12/18/2017 BILL GREGORY MD, Ot 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 12/18/2017 BILL GREGORY MD, Ot 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 12/18/2017 BILL GREGORY MD, Ot 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 12/18/2017 BILL GREGORY MD, Ot C79.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 12/18/2017 BILL GREGORY MD, Ot I10 ESSENTIAL (PRIMARY) HYPERTENSION 12/18/2017 BILL GREGORY MD, Ot M25.552 PAIN IN LEFT HIP 12/18/2017 BILL GREGORY MD, Ot Z51.11 ENCOUNTER FOR ANTINEOPLASTIC CHEMOTHERAP 12/18/2017 BILL GREGORY MD, Ot Z79.899 OTHER TIRE BALANCER (CURRENT) DRUG THERAPY 12/18/2017 BILL GREGORY MD, Ot Z93.3 COLOSTOMY STATUS 01/22/2018 BILL GREGORY MD, Ot C20 MALIGNANT NEOPLASM OF RECTUM 01/22/2018 BILL GREGORY MD, Ot 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 01/22/2018 BILL GREGORY MD, Ot 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 01/22/2018 BILL GREGORY MD, Ot C79.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 01/22/2018 BILL GREGORY MD, Ot I10 ESSENTIAL (PRIMARY) HYPERTENSION 01/22/2018 BILL GREGORY MD, Ot M25.552 PAIN IN LEFT HIP 01/22/2018 BILL GREGORY MD, Ot Z51.11 ENCOUNTER FOR ANTINEOPLASTIC CHEMOTHERAP 01/22/2018 BILL GREGORY MD, Ot Z79.899 OTHER LONG-TERM (CURRENT) DRUG THERAPY 01/22/2018 BILL GREGORY MD, Ot Z93.3 COLOSTOMY STATUS 02/26/2018 IBLL GREGORY MD, Ot C20 MALIGNANT NEOPLASM OF RECTUM 02/26/2018 BILL GREGORY MD, Ot 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 02/26/2018 BILL GREGORY MD, Ot 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 02/26/2018 BILL GREGORY MD, Ot C79.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 02/26/2018 BILL GREGORY MD Ot I10 ESSENTIAL (PRIMARY) HYPERTENSION 02/26/2018 BILL GREGORY MD, Ot M25.552 PAIN IN LEFT HIP 02/26/2018 BILL GREGORY MD, Ot Z51.11 ENCOUNTER FOR ANTINEOPLASTIC CHEMOTHERAP 02/26/2018 BILL GREGORY MD, Ot Z79.899 OTHER LONG-TERM (CURRENT) DRUG THERAPY 02/26/2018 BILL GREGORY MD, Ot Z93.3 COLOSTOMY STATUS Procedures Code [place] [address] Office or other outpatient visit for the evaluation and management of an established patient, which requires at least 2 of these 3 martinez components: A detailed history; A detailed examination; Medical d 05/17/2016 Results Test Result Range Bacterial urine culture - 11/13/17 14:00 Bacterial urine culture RML NRG COLONY COUNT . NRG Complete blood count (CBC) with automated white blood cell (WBC) differential - 02/26/18 11:04 Blood leukocytes automated count (number/volume) 2.6 10*3/uL 4.3-11.0 Blood erythrocytes automated count (number/volume) 3.17 10*6/uL 4.35-5.85 Venous blood hemoglobin measurement (mass/volume) 9.0 g/dL 11.5-16.0 Blood hematocrit (volume fraction) 30 % 35-52 Automated erythrocyte mean corpuscular volume 94 [foz_us] 80-99 Automated erythrocyte mean corpuscular hemoglobin (mass per erythrocyte) 28 pg 25-34 Automated erythrocyte mean corpuscular hemoglobin concentration measurement ( mass/volume) 30 g/dL 32-36 Automated erythrocyte distribution width ratio 17.9 % 10.0-14.5 Automated blood platelet count (count/volume) 217 10*3/uL 130-400 Automated blood platelet mean volume measurement 9.6 [foz_us] 7.4-10.4 Automated blood neutrophils/100 leukocytes 49 % 42-75 Automated blood lymphocytes/100 leukocytes 32 % 12-44 Blood monocytes/100 leukocytes 16 % 0-12 Automated blood eosinophils/100 leukocytes 2 % 0-10 Automated blood basophils/100 leukocytes 0 % 0-10 Blood neutrophils automated count (number/volume) 1.3 10*3 1.8-7.8 Blood lymphocytes automated count (number/volume) 0.9 10*3 1.0-4.0 Blood monocytes automated count (number/volume) 0.4 10*3 0.0-1.0 Automated eosinophil count 0.1 10*3/uL 0.0-0.3 Automated blood basophil count (count/volume) 0.0 10*3/uL 0.0-0.1 Whole blood basic metabolic panel - 02/26/18 11:04 Serum or plasma sodium measurement (moles/volume) 141 mmol/L 135-145 Serum or plasma potassium measurement (moles/volume) 4.8 mmol/L 3.6-5.0 Serum or plasma chloride measurement (moles/volume) 110 mmol/L 98-107 Carbon dioxide 19 mmol/L 21-32 Serum or plasma anion gap determination (moles/volume) 12 mmol/L 5-14 Serum or plasma urea nitrogen measurement (mass/volume) 46 mg/dL 7-18 Serum or plasma creatinine measurement (mass/volume) 1.79 mg/dL 0.60-1.30 Serum or plasma urea nitrogen/creatinine mass ratio 26 NRG Serum or plasma creatinine measurement with calculation of estimated glomerular filtration rate 29 NRG Serum or plasma glucose measurement (mass/volume) 130 mg/dL 70-105 Serum or plasma calcium measurement (mass/volume) 9.5 mg/dL 8.5-10.1 Complete urinalysis with reflex to culture - 02/26/18 14:10 Urine color determination YELLOW NRG Urine clarity determination VERY CLOUDY NRG Urine pH measurement by test strip 5 5-9 Specific gravity of urine by test strip 1.015 1.016- 1.022 Urine protein assay by test strip, semi-quantitative 2+ NEGATIVE Urine glucose detection by automated test strip NEGATIVE NEGATIVE Erythrocytes detection in urine sediment by light microscopy 5+ NEGATIVE Urine ketones detection by automated test strip NEGATIVE NEGATIVE Urine nitrite detection by test strip POSITIVE NEGATIVE Urine total bilirubin detection by test strip NEGATIVE NEGATIVE Urine urobilinogen measurement by automated test strip (mass/volume) NORMAL NORMAL Urine leukocyte esterase detection by dipstick 3+ NEGATIVE Automated urine sediment erythrocyte count by microscopy (number/high power field) [HPF] NRG Automated urine sediment leukocyte count by microscopy (number/high power field ) [HPF] NRG Bacteria detection in urine sediment by light microscopy MODERATE NRG Squamous epithelial cells detection in urine sediment by light microscopy 2-5 NRG Crystals detection in urine sediment by light microscopy NONE NRG Casts detection in urine sediment by light microscopy NONE NRG Mucus detection in urine sediment by light microscopy NEGATIVE NRG Complete urinalysis with reflex to culture YES NRG Bacterial urine culture - 02/26/18 14:10 Bacterial urine culture [id number] NRG COLONY COUNT . NRG FTX;REPORTABLE WITH A PREDOMINANCE OF NRG RML Sensitivity Panel - 02/26/18 14:10 Oxacillin susceptibility test by minimum inhibitory concentration 1 NRG Vancomycin susceptibility test by minimum inhibitory concentration 1 NRG Levofloxacin susceptibility test by minimum inhibitory concentration > NRG Rifampin susceptibility test by minimum inhibitory concentration <= NRG Cefazolin susceptibility test by minimum inhibitory concentration R NRG Nitrofurantoin susceptibility test by minimum inhibitory concentration <= NRG Penicillin G susceptibility test by minimum inhibitory concentration 0.5 NRG Encounters ACCT No. Visit Date/Time Discharge Status Pt. Type Provider Facility Loc./Unit Complaint [id number] 06/18/2013 14:31:00 06/18/2013 14:31:00 DIS Outpatient [facility] ARTE [id number] 05/17/2016 13:25:00 05/17/2016 23:59:00 DIS Outpatient Jordon De Leon [facility] FC Surg TCPA RECURRENT RECTAL MASSES [id number] 06/18/2013 14:33:50 ACT Document Registration [id number] 01/06/2015 09:37:24 Document Registration [id number] 01/06/2015 09:19:22 Document Registration [id number] 09/16/2014 09:28:00 Document Registration [id number] 01/25/2018 14:34:14 01/25/2018 23:59:59 CLS Outpatient Aníbal Gresham [id number] 12/31/2017 15:24:47 12/31/2017 23:59:59 CLS Outpatient OSCAR GODWIN [id number] 12/20/2017 10:24:58 12/20/2017 23:59:59 CLS Outpatient Aníbal Gresham [id number] 12/10/2017 16:50:06 12/10/2017 23:59:59 CLS Outpatient Aníbal Gresham [id number] 11/23/2017 11:11:08 11/23/2017 23:59:59 CLS Outpatient TATO, OSCAR Cesario [id number] 07/30/2017 09:52:17 07/30/2017 23:59:59 CLS Outpatient TATO, OSCAR Cesario [id number] 07/16/2017 07:45:45 07/16/2017 23:59:59 CLS Outpatient TATO, OSCAR Cesario [id number] 07/02/2017 07:39:24 07/02/2017 23:59:59 CLS Outpatient TATO, OSCAR Cesario [id number] 05/24/2017 13:46:52 05/24/2017 23:59:59 CLS Outpatient TATO, OSCAR Cesario [id number] 05/08/2017 08:09:08 05/08/2017 23:59:59 CLS Outpatient TATO, OSCAR Nassar [id number] 04/23/2017 08:20:04 04/23/2017 23:59:59 CLS Outpatient TATO, OSCAR Nassar [id number] 04/10/2017 15:47:08 04/10/2017 23:59:59 CLS Outpatient TATO, OSCAR Cesario [id number] 03/26/2017 08:22:31 03/26/2017 23:59:59 CLS Outpatient TATO, OSCAR Nassar [id number] 02/26/2017 08:04:03 02/26/2017 23:59:59 CLS Outpatient TATO, OSCAR Nassar [id number] 02/12/2017 07:55:02 02/12/2017 23:59:59 CLS Outpatient TATO, OSCAR Nassar [id number] 01/29/2017 08:14:10 01/29/2017 23:59:59 CLS Outpatient TATO, OSCAR Nassar [id number] 01/01/2017 08:27:20 01/01/2017 23:59:59 CLS Outpatient TATO, OSCAR Nassar [id number] 12/18/2016 08:03:03 12/18/2016 23:59:59 CLS Outpatient TATO, OSCAR Nassar [id number] 12/05/2016 10:08:19 12/05/2016 23:59:59 CLS Outpatient TATO, OSCAR Nassar [id number] 11/21/2016 08:12:46 11/21/2016 23:59:59 CLS Outpatient TATO, OSCAR Nassar [id number] 11/08/2016 15:57:46 11/08/2016 23:59:59 CLS Outpatient TATOOSCAR [id number] 10/23/2016 08:27:18 10/23/2016 23:59:59 CLS Outpatient TATO, OSCAR Nassar [id number] 10/09/2016 07:41:51 10/09/2016 23:59:59 CLS Outpatient TATOOSCAR [id number] 09/25/2016 10:24:26 09/25/2016 23:59:59 CLS Outpatient TATO, OSCAR Nassar [id number] 02/08/2015 15:37:21 02/08/2015 23:59:59 CLS Outpatient [place] Lee, Oscar [id number] 01/11/2015 15:06:53 01/11/2015 23:59:59 CLS Outpatient [place] Lee, Oscar [id number] 01/14/2014 15:50:30 01/14/2014 23:59:59 CLS Outpatient [place] Lee, Oscar [id number] 01/12/2014 14:39:24 01/12/2014 23:59:59 CLS Outpatient [place] Lee, Oscar [id number] 01/05/2014 13:37:57 01/05/2014 23:59:59 CLS Outpatient [place] Lee, Oscar [id number] 01/05/2014 10:33:00 01/05/2014 23:59:59 CLS Outpatient [place] Lee, Oscar [id number] 12/29/2013 10:45:34 12/29/2013 23:59:59 CLS Outpatient [place] Lee, Oscar [id number] 06/23/2013 16:43:13 06/23/2013 23:59:59 CLS Outpatient [place] Lee, Oscar [id number] 06/18/2013 23:31:59 06/18/2013 23:59:59 CLS Outpatient [place] Lee, Oscar [id number] 06/12/2013 07:41:26 06/12/2013 23:59:59 CLS Outpatient [place] Lee, Oscar [id number] 06/09/2013 14:01:30 06/09/2013 23:59:59 CLS Outpatient [place] Lee, Oscar [id number] 02/26/2018 11:02:00 02/26/2018 23:59:59 CLS Outpatient SAQIB IBRAHIM, ANÍBAL [facility] [id number] 02/26/2018 10:36:00 02/26/2018 23:59:59 CLS Outpatient BILL GREGORY MD [facility] ONC [id number] 12/04/2017 08:58:00 12/18/2017 09:02:00 DIS Outpatient BILL GREGORY MD [facility] ONC [id number] 11/09/2017 09:17:00 11/09/2017 23:59:59 CLS Outpatient BILL GREGORY MD [facility] RAD RECTAL CANCER [id number] 11/08/2017 08:30:00 Document Registration [id number] 06/16/2013 10:17:00 06/16/2013 23:59:59 CLS Outpatient Megah IBRAHIM, Hamlet Hernandez [facility] on [facility]o MONZON [id number] 02/06/2018 01:29:10 Document Registration [id number] 01/25/2018 16:33:45 Document Registration [id number] 12/11/2017 12:12:32 Document Registration [id number] 12/10/2017 17:31:39 Document Registration [id number] 11/22/2017 16:54:49 Document Registration [id number] 07/30/2017 15:44:52 Document Registration [id number] 07/16/2017 15:35:35 Document Registration [id number] 07/02/2017 15:18:47 Document Registration [id number] 05/21/2017 15:40:17 Document Registration [id number] 05/08/2017 15:39:12 Document Registration [id number] 04/23/2017 16:02:20 Document Registration [id number] 04/09/2017 16:06:24 Document Registration [id number] 03/26/2017 15:57:02 Document Registration [id number] 02/26/2017 14:57:13 Document Registration [id number] 02/12/2017 16:11:09 Document Registration [id number] 01/29/2017 17:14:43 Document Registration [id number] 01/01/2017 15:27:05 Document Registration [id number] 12/18/2016 14:49:32 Document Registration [id number] 12/05/2016 15:29:21 Document Registration [id number] 11/21/2016 15:02:09 Document Registration [id number] 11/06/2016 15:19:02 Document Registration
--- OUTSIDE RECORDS SUMMARY | 2018-03-04 14:06 | XMS REPORT ---
Author Author OSCAR GODWIN [facility] Address [address] [place], [place] [id number] Care Team Providers Care Sales Training Coordinator Name Role Phone OSCAR GODWIN PCP OSCAR GODIWN PreferredProvider Allergies and Adverse Reactions Name Reaction Notes PENICILLINS Plan of Treatment Planned Activity Comments Planned Date Planned Time Plan/Goal CBC with Differential 04/23/2017 12:00 AM CMP 04/23/2017 12:00 AM Medications Active Name Start Date [...] AM ROUTINE VENIPUNCTURE Reviewed 04/23/2017 12:00 AM ROUTINE VENIPUNCTURE Reviewed 01/14/2014 12:00 [...] [employer] PMC Fluzone > 12 Years [id number] Intramuscular Right Deltoid 01/12/2015 10/23/2014 141 Pneumococcal 01/11/2015 [employer] PFR Prevnar [id number] Intramuscular Left Deltoid 01/12/2015 03/19/2014 100 X 01/11/2015 [employer] PFR Prevnar [id number] Intramuscular Left Deltoid 01/12/2015 03/19/2014 100 History [...] Adenocarcinoma of rectum Apr 23 2017 7:35AM Payers Insurance Name Company Name Plan Name Plan Number Policy Number Policy Group Number Start Date [employer] [place] [id number] Thursday, 2015 [employer] [place] [id number] N/A [employer] [place] [id number] N/A [employer] [place] [id number] N/A History of Encounters Visit Date Visit Type Provider 04/23/2017 Laboratory OSCAR GODWIN PA 04/09/2017 Laboratory [...]
[2018-03-04] MEDS ORDERED: NS IV 1000 ML 1,000 ML IV STA (14:27)
[2018-03-04] MEDS ORDERED: morphine INJ 10 MG/ML 1ML (SYR OR VIAL) IVP STA (14:28)
[2018-03-04] MEDS ORDERED: DEXAMETHASONE 4 MG/ML SDV (DECADRON) IV ONE (14:30)
[2018-03-04] MEDS ORDERED: ONDANSETRON 4 MG/2 ML (SDV) Z0FRAN IVP ONE (14:30)
--- NOTE | 2018-03-04 14:35 | ED GI ---
General Chief Complaint: Abdominal/GI Problems Stated Complaint: N/V Nursing Triage Note: PT PRESENTS TO ER WITH COMPLAINT OF N/V SINCE SUNDAY. PT STATES SHE FINISHED CHEMO THAT DAY AND HAS BEEN VOMITING SINCE. Sepsis Screen: No Definite Risk Source of Information: Patient, Family Exam Limitations: No Limitations History of Present Illness Date Seen by Provider: Mar 04, 2018 Time Seen by Provider: 14:10 Initial Comments Here with nausea and vomiting since last . She finished chemotherapy last and has had problems since. She is not able to keep her Zofran down. She is not mildly keep her pain medicines down for the last 2 days. The only thing that she can tolerate is ice chips. Does have large left pelvic mass. Does have a PowerPort. Does note some burning with urination on the last 2 urinations. Timing/Duration: 3-4 Days Severity/Quality: Moderate Location: Epigastric Radiation: No Radiation Activities at Onset: None Modifying Factors: Worsens With Eating; Improves With Resting Associated Symptoms: No Back Pain, No Chest Pain, No Fever/Chills; Nausea/ Vomiting; No Shortness of Air; Weakness Allergies and Home Medications Allergies Coded Allergies: Penicillins (Verified Allergy, Unknown, 11/08/17) Patient Home Medication List Home Medication List Reviewed: Yes Review of Systems Review of Systems Constitutional: see HPI; No chills, No fever; weakness EENTM: No Symptoms Reported Respiratory: Denies Cough, Denies Shortness of Air Cardiovascular: Denies Chest Pain; Edema Gastrointestinal: Abdominal Pain; Denies Diarrhea; Nausea, Vomiting, Other ( colostomy bag still has output) Genitourinary: See HPI Musculoskeletal: no symptoms reported Skin: no symptoms reported Psychiatric/Neurological: See HPI; Denies Headache; Weakness All Other Systems Reviewed Negative Unless Noted: Yes Past Wnkamcb-Pdzypn-Awlbun Hx Past Med/Social Hx: Reviewed Nursing Past Med/Soc Hx Patient Social History Alcohol Use: Denies Use Recreational Drug Use: No Smoking Status: Never a Smoker Recent Foreign Travel: No Contact w/Someone Who Travel: No Recent Infectious Disease Expo: No Recent Hopitalizations: No Immunizations Up To Date Tetanus Booster (TDap): Unknown PED Vaccines UTD: Yes Past Medical History Surgeries: Yes Abdominal, Appendectomy, Hysterectomy Respiratory: No Cardiac: Yes Hypertension Neurological: No [employer] History: Hysterectomy Genitourinary: Yes (KIDNEY STENT) Renal Failure Gastrointestinal: Yes Musculoskeletal: No Endocrine: No HEENT: No Cancer: Yes Bladder, Rectal, Colon Did You Recieve Any Treatments: Yes What Type of Treatment Did You: Chemotherapy, Radiation, Surgical Intervention Psychosocial: No Integumentary: No Blood Disorders: No Family Medical History Reviewed Nursing Family Hx No Pertinent Family Hx Physical Exam Vital Signs Vital Signs - First Documented 03/04/18 13:54 Temp 97.9 Pulse 95 Resp 20 B/P (MAP) 151/59 (89) Pulse Ox 95 O2 Delivery Room Air Capillary Refill : Less Than 3 Seconds Height/Weight/BMI Height: 5'4.00" Weight: 175lbs. oz. 79.350046pa; BMI Method:Stated General Appearance: WD/WN, no apparent distress HEENT: PERRL/EOMI, pharynx normal Neck: full range of motion, supple Respiratory: lungs clear, normal breath sounds Cardiovascular: no murmur, tachycardia Peripheral Pulses: 2+ Dorsalis Pedis (R), 2+ Left Dors-Pedis (L), 2+ Radial Pulses (R), 2+ Radial Pulses (L) Gastrointestinal: soft, tenderness (mild diffuse but worse on the left side where her mass is) Extremities: non-tender, pedal edema (left lower extremity which is chronic) Back: normal inspection, no CVA tenderness, no vertebral tenderness Neurologic/Psychiatric: alert, oriented x 3 Skin: normal color, warm/dry Progress/Results/Core Measures Results/Orders Lab Results Laboratory Tests Test 03/04/18 14:30 03/04/18 15:20 Range/Units White Blood Count 2.5 L 4.3-11.0 10^3/uL Red Blood Count 3.25 L 4.35-5.85 10^6/uL Hemoglobin 9.1 L 11.5-16.0 G/DL Hematocrit 30 L 35-52 % Mean Corpuscular Volume 93 80-99 FL Mean Corpuscular Hemoglobin 28 25-34 PG Mean Corpuscular Hemoglobin Concent 30 L 32-36 G/DL Red Cell Distribution Width 17.2 H 10.0-14.5 % Platelet Count 170 130-400 10^3/uL Mean Platelet Volume 9.2 7.4-10.4 FL Neutrophils (%) (Auto) 87 H 42-75 % Lymphocytes (%) (Auto) 7 L 12-44 % Monocytes (%) (Auto) 5 0-12 % Eosinophils (%) (Auto) 1 0-10 % Basophils (%) (Auto) 0 0-10 % Neutrophils # (Auto) 2.1 1.8-7.8 X 10^3 Lymphocytes # (Auto) 0.2 L 1.0-4.0 X 10^3 Monocytes # (Auto) 0.1 0.0-1.0 X 10^3 Eosinophils # (Auto) 0.0 0.0-0.3 10^3/uL Basophils # (Auto) 0.0 0.0-0.1 10^3/uL Neutrophils % (Manual) 77 % Lymphocytes % (Manual) 11 % Monocytes % (Manual) 4 % Eosinophils % (Manual) 0 % Basophils % (Manual) 0 % Band Neutrophils 8 % Anisocytosis SLIGHT Elliptocytes SLIGHT Sodium Level 144 135-145 MMOL/L Potassium Level 5.3 H 3.6-5.0 MMOL/L Chloride Level 110 H 98-107 MMOL/L Carbon Dioxide Level 22 21-32 MMOL/L Anion Gap 12 5-14 MMOL/L Blood Urea Nitrogen 30 H 7-18 MG/DL Creatinine 1.66 H 0.60-1.30 MG/DL Estimat Glomerular Filtration Rate 31 BUN/Creatinine Ratio 18 Glucose Level 116 H 70-105 MG/DL Calcium Level 9.5 8.5-10.1 MG/DL Corrected Calcium 9.5 8.5-10.1 MG/DL Total Bilirubin 0.5 0.1-1.0 MG/DL Aspartate Amino Transf (AST/SGOT) 11 5-34 U/L Alanine Aminotransferase (ALT/SGPT) 11 0-55 U/L Alkaline Phosphatase 87 40-136 U/L C-Reactive Protein High Sensitivity 6.82 H 0.00-0.50 MG/DL Total Protein 7.1 6.4-8.2 GM/DL Albumin 4.0 3.2-4.5 GM/DL Urine Color YELLOW Urine Clarity SLIGHTLY CLOUDY Urine pH 8 5-9 Urine Specific Floyd 1.010 L 1.016-1.022 Urine Protein 3+ H NEGATIVE Urine Glucose (UA) NEGATIVE NEGATIVE Urine Ketones NEGATIVE NEGATIVE Urine Nitrite POSITIVE H NEGATIVE Urine Bilirubin NEGATIVE NEGATIVE Urine Urobilinogen NORMAL NORMAL MG/DL Urine Leukocyte Esterase 2+ H NEGATIVE Urine RBC (Auto) 4+ H NEGATIVE Urine RBC 10-25 H /HPF Urine WBC 10-25 H /HPF Urine Squamous Epithelial Cells 0-2 /HPF Urine Crystals NONE /LPF Urine Bacteria FEW H /HPF Urine Casts NONE /LPF Urine Mucus NEGATIVE /LPF Urine Culture Indicated YES My Orders Orders - VERN BLOCK MD Cbc With Automated Diff (03/04/18 14:27) Comprehensive Metabolic Panel (03/04/18 14:27) Hs C Reactive Protein (03/04/18 14:27) Ua Culture If Indicated (03/04/18 14:27) Ondansetron Injection (Zofran Injectio (03/04/18 14:30) Ns Iv 1000 Ml (Sodium Chloride 0.9%) (03/04/18 14:27) Saline Lock/Iv-Start (03/04/18 14:27) Dexamethasone Injection (Decadron Inject (03/04/18 14:30) Morphine Injection (Morphine Injection (03/04/18 14:28) Manual Differential (03/04/18 14:30) Urine Culture (03/04/18 15:20) Ceftriaxone For Iv Use (Rocephin For I (03/04/18 16:15) Heparin (Central Iv Flush) (Heparin (Deacon (03/04/18 17:15) Medications Given in ED Current Medications Medications Dose Ordered Sig/Sophy Route Start Time Stop Time Status Last Admin Dose Admin Ceftriaxone Sodium 1000 mg/ Sodium Chloride 60 ml @ 100 mls/hr ONCE ONCE IV 03/04/18 16:15 03/04/18 16:50 DC 03/04/18 16:14 100 MLS/HR Dexamethasone Sodium Phosphate 4 mg ONCE ONCE IV 03/04/18 14:30 03/04/18 14:31 DC 03/04/18 15:13 4 MG Ondansetron HCl 8 mg ONCE ONCE IVP 03/04/18 14:30 03/04/18 14:31 DC 03/04/18 15:13 8 MG Vital Signs/I&O 03/04/18 13:54 Temp 97.9 Pulse 95 Resp 20 B/P (MAP) 151/59 (89) Pulse Ox 95 O2 Delivery Room Air Blood Pressure Mean: 89 Progress Progress Note : Progress Note Seen and evaluated. IV via port access. Labs, normal saline 1 L bolus, Zofran 8 mg IV, Decadron 4 mg IV and morphine 10 mg IV ordered. UA ordered. Monitor patient. Overall much improved. Rocephin 1 g IV ordered. I have reviewed her history and found previous culture from 02/26/18 that showed organism resistant to many antibiotics but susceptible to nitrofurantoin. We will continue outpatient treatment with nitrofurantoin. Patient to follow-up as needed with the cancer clinic. 1637: I did discuss the case with Dr GREGORY. She agrees with plan. 1710: Patient still remains better. Discharged home with return precautions. Patient verbalize understanding instructions and agreement with plan. She is tolerating by mouth fluids. Departure Impression Primary Impression: Urinary tract infection Qualified Codes: N30.00 - Acute cystitis without hematuria Additional Impression: Nausea and vomiting Qualified Codes: R11.2 - Nausea with vomiting, unspecified Disposition: HOME, SELF-CARE Condition: Improved Departure-Patient Inst. Decision time for Depature: 17:16 Referrals: JAYCEE GODWIN (PCP/Family) Primary Care Physician Patient Instructions: Nausea and Vomiting, Adult (DC), Urinary Tract Infection , Adult (DC) Add. Discharge Instructions: All discharge instructions reviewed with patient and/or family. Voiced understanding. Clear liquid to light diet as tolerated and advance as tolerated. Drink plenty of fluids. Follow-up with your Dr. in a few days for recheck. Return for worse pain, fever, vomiting, weakness, breathing problems or other concerns as needed. Scripts Ondansetron (Ondansetron Odt) 4 Mg Tab.rapdis 4 MG PO Q6H PRN for NAUSEA/VOMITING, #12 TAB 0 Refills Prov: VERN BLOCK MD 03/04/18 Nitrofurantoin Macrocrystal (Nitrofurantoin) 100 Mg Capsule 100 MG PO BID, #14 CAP 0 Refills Prov: VERN BLOCK MD 03/04/18 Copy Copies To 1: BILL GREGORY MD, TIMOTHY D MD Mar 04, 2018 14:35
[2018-03-04 14:39] LABS: BASOPHILS % (AUTO) 0 % (0-10); EOSINOPHILS % (AUTO) 1 % (0-10); HEMATOCRIT 30 % (35-52); HEMOGLOBIN 9.1 G/DL (11.5-16.0); LYMPHOCYTES # (AUTO) 0.2 X 10^3 (1.0-4.0); LYMPHOCYTES % (AUTO) 7 % (12-44); MEAN CORPUSCULAR HEMOGLOBIN 28 PG (25-34); MEAN CORPUSCULAR HGB CONC 30 G/DL (32-36); MEAN CORPUSCULAR VOLUME 93 FL (80-99); MEAN PLATELET VOLUME 9.2 FL (7.4-10.4); MONOCYTES # (AUTO) 0.1 X 10^3 (0.0-1.0); MONOCYTES % (AUTO) 5 % (0-12); NEUTROPHILS # (AUTO) 2.1 X 10^3 (1.8-7.8); NEUTROPHILS % (AUTO) 87 % (42-75); PLATELET COUNT 170 10^3/uL (130-400); RED BLOOD COUNT 3.25 10^6/uL (4.35-5.85); RED CELL DISTRIBUTION WIDTH 17.2 % (10.0-14.5); WHITE BLOOD COUNT 2.5 10^3/uL (4.3-11.0)
[2018-03-04 15:01] LABS: ANISOCYTOSIS SLIGHT; BAND NEUTROPHILS 8 %; BASOPHILS % (MANUAL) 0 %; ELLIPT/OVALOCYTES SLIGHT; EOSINOPHILS % (MANUAL) 0 %; LYMPHOCYTES % (MANUAL) 11 %; MONOCYTES % (MANUAL) 4 %; NEUTROPHILS % (MANUAL) 77 %
[2018-03-04 15:02] LABS: BILIRUBIN,TOTAL 0.5 MG/DL (0.1-1.0); CALCIUM 9.5 MG/DL (8.5-10.1); CREATININE SERUM 1.66 MG/DL (0.60-1.30); POTASSIUM 5.3 MMOL/L (3.6-5.0); TOTAL PROTEIN 7.1 GM/DL (6.4-8.2)
[2018-03-04 15:33] LABS: BILIRUBIN,URINE NEGATIVE (NEGATIVE); CLARITY,URINE SLIGHTLY CLOUDY; COLOR,URINE YELLOW; GLUCOSE, URINE (UA) NEGATIVE (NEGATIVE); KETONES,URINE NEGATIVE (NEGATIVE); LEUKOCYTE ESTERASE ,URINE 2+ (NEGATIVE); NITRITE,URINE POSITIVE (NEGATIVE); PH,URINE 8 (5-9); PROTEIN,URINE 3+ (NEGATIVE); UROBILINOGEN,URINE NORMAL (NORMAL)
[2018-03-04 15:43] LABS: BACTERIA,URINE FEW /HPF; SQUAMOUS EPITHELIAL CELL,UR 0-2 /HPF
[2018-03-04] MEDS ORDERED: cefTRIAXone FOR IV USE 1,000 MG in NS (IVPB) 50 ML IV ONE (16:15)
[2018-03-04] MEDS ORDERED: NITR100C PO (17:14)
[2018-03-04] MEDS ORDERED: ONDA4TAB11 PO (17:14)
[2018-03-04] MEDS ORDERED: HEParin (CENTRAL IV FLUSH) 500 UNIT/5 ML SYR IV ONE (17:15)
[2018-03-04 17:31] VITALS: BP 130/59
== END 2018-03-04 17:30 | disposition home or self-care (01) ==
LOC: EDUNIT# 13:48 → ER 13:49
DX: N39.0 Urinary tract infection, site not specified (principal); I10 Essential (primary) hypertension; Z85.038 Personal history of other malignant neoplasm of large intestine; Z85.51 Personal history of malignant neoplasm of bladder; Z85.048 Personal history of other malignant neoplasm of rectum, rectosigmoid junction, and anus; Z87.448 Personal history of other diseases of urinary system; Z96.0 Presence of urogenital implants; Z88.0 Allergy status to penicillin; Z92.21 Personal history of antineoplastic chemotherapy; Z90.710 Acquired absence of both cervix and uterus; Z90.49 Acquired absence of other specified parts of digestive tract
CPT/HCPCS: 36415; 80053; 81000; 85007; 85027; 86141; 87077; 87088

== ENCOUNTER 2018-03-12 13:23 | Emergency (ER) | payer BC ==
[~2018-03-12] VITALS: Ht 162.6 cm; Wt 79.4 kg
[~2018-03-12 13:23] MED LIST changes: -ATROPINE INJ 0.4 MG/ML SDV (CANCER CENTER) INJ SCH; -BEVACIZUMAB IV SCH; -FAMOTIDINE 20MG/2ML IV (CANCER CTR) IV SCH; -FLUOROURACIL 0.8 GM in SYRINGE-IVPB 1 SYRINGE IV SCH; -FLUOROURACIL 4,800 MG in NS (IVPB) CANCER CENTER 51.2 ML IV SCH; -FOSAPREPITANT DIMEGLUMINE 150 MG in NS (IVPB) CANCER CENTER ONLY 150 ML IV SCH; -IRINOTECAN HCL 300 MG, IRINOTECAN HCL 60 MG in D5W 250 ML IVPB (CANCER CTR) 250 ML IV SCH; -LEUCOVORIN CALCIUM 700 MG, LEUCOVORIN CALCIUM 100 MG in D5W 250 ML IVPB (CANCER CTR) 25... IV SCH; +NITR100C PO; -NS IV 1000 ML (CANCER CTR) 1,000 ML ONE; -NS IV 1000 ML (CANCER CTR) IV SCH; +ONDA4TAB11 PO; -PALONOSETRON HCL 0.25 MG, DEXAMETHASONE INJECTION 10 MG in NS (IVPB) CANCER CENTER 50 ML IV SCH; -[UNRECOGNIZED DRUG - OTHER] IV SCH; -diphenhydrAMINE 25 MG TAB (BENADRYL) CANCER CENTER PO SCH
--- OUTSIDE RECORDS SUMMARY | 2018-03-12 13:40 | XMS REPORT | Continuity of Care Document ---
Demographics x Preferred Language Unknown Marital Status Unknown Adventist Affiliation Unknown Race Unknown Ethnic Group Unknown Author Author [facility] Organization [facility] Address Unknown Phone Unavailable Allergies Active Description Code Type Severity Reaction Onset Reported/Identified Relationship to Patient Clinical Status Yes PCN (penicillin) 13092073 CLASS N/A N/A Yes penicillin NKMA N/A [id number] 10/08/2013 Yes penicillin NKMA N/A [id number] 10/08/2013 Yes No Known Drug Allergies [id number] Drug Allergy Unknown N/A 11/08/2017 Yes Penicillins [id number] Drug Allergy Unknown N/A 11/08/2017 Medications Medication [...] mg, IV Push, q10min, PRN: Pain HYDROmorphone(Dilaudid FUDGE CANDY MAKER 1 mg/mL 30 mg) 30 mL 10/10/2013 10/10/2013 IV 30 mg FUDGE CANDY MAKER, IV, Stop: 12/09/13 0:10:00 CDT HYDROmorphone(Dilaudid) 201310/13/2013 IV Push 0.5 - 1.0mg, IV Push, q2hr, PRN: Pain enoxaparin(enoxaparin) 0.4 mL 10/1010/13/2013 SubCutaneous 40 mg 40 mg, SubCutaneous, Daily metoclopramide(Reglan) 2 mL 201310/13/2013 IV Push 10 mg 10 mg, IV Push, q6hr, PRN: Nausea or Vomiting HYDROcodone-acetaminophen(Emmalena 5 mg-325 mg oral tablet) 10/10/2013 10/13/2013 [...] Oral 800 mg 800 mg, Oral, BIDWM HYDROcodone-acetaminophen(Emmalena 5 mg-325 mg oral tablet) 10/10/2013 05/17/2016 [...] CHEMOTHERAP BILL GREGORY MD, Ot Z79.899 OTHER LIVESTOCK COUNTER (CURRENT) DRUG THERAPY BILL GREGORY MD, Ot [...] M48.07 SPINAL STENOSIS, LUMBOSACRAL REGION 11/23/2017 BILL GREGORY MD, Ot M99.73 CONN TISS AND DISC [...] 12/18/2017 BILL GREGORY MD, Ot Z79.899 OTHER LIVESTOCK COUNTER (CURRENT) DRUG THERAPY 12/18/2017 BILL GREGORY MD, [...] 01/22/2018 BILL GREGORY MD, Ot Z79.899 OTHER PRISON (CURRENT) DRUG THERAPY 01/22/2018 BILL GREGORY MD, Ot Z93.3 COLOSTOMY STATUS 02/26/2018 BILL GREGORY MD, Ot C20 MALIGNANT NEOPLASM OF RECTUM 02/26/2018 XUN MD, QUIROGA-JOSE Ot 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 02/26/2018 BILL GREGORY MD, Ot 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 02/26/2018 BILL GREGORY MD, Ot C79.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 02/26/2018 BILL GREGORY MD, Ot I10 ESSENTIAL (PRIMARY) HYPERTENSION 02/26/2018 BILL GREGORY MD, Ot M25.552 PAIN IN LEFT HIP 02/26/2018 BILL GREGORY MD, Ot Z51.11 ENCOUNTER FOR ANTINEOPLASTIC CHEMOTHERAP 02/26/2018 BILL GREGORY MD, Ot Z79.899 OTHER PRISON (CURRENT) DRUG THERAPY 02/26/2018 BILL GREGORY MD, Ot Z93.3 COLOSTOMY STATUS 03/04/2018 BILL GREGORY MD, Ot C20 MALIGNANT NEOPLASM OF RECTUM 03/04/2018 BILL GREGORY MD, Ot M25.552 PAIN IN LEFT HIP 03/04/2018 BILL GREGORY MD, Ot M48.061 SPINAL STENOSIS, LUMBAR REGION WITHOUT N 03/04/2018 BILL GREGORY MD, Ot M48.07 SPINAL STENOSIS, LUMBOSACRAL REGION 03/04/2018 BILL GREGORY MD, Ot M99.73 CONN TISS AND DISC STENOS OF INTVRT FORA 03/04/2018 BILL GREGORY MD, Ot N28.89 OTHER SPECIFIED DISORDERS OF KIDNEY AND 03/04/2018 BILL GREGORY MD, Ot R19.09 OTHER INTRA-ABDOMINAL AND PELVIC SWELLIN 03/04/2018 BILL GREGORY MD, Ot C20 MALIGNANT NEOPLASM OF RECTUM 03/04/2018 BILL GREGORY MD, Ot 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 03/04/2018 BILL GREGORY MD, Ot 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 03/04/2018 BILL GREGORY MD, Ot C79.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 03/04/2018 BILL GREGORY MD, Ot I10 ESSENTIAL (PRIMARY) HYPERTENSION 03/04/2018 BILL GREGORY MD, Ot M25.552 PAIN IN LEFT HIP 03/04/2018 BILL GREGORY MD, Ot Z51.11 ENCOUNTER FOR ANTINEOPLASTIC CHEMOTHERAP 03/04/2018 BILL GREGORY MD, Ot Z79.899 OTHER PRISON (CURRENT) DRUG THERAPY 03/04/2018 BILL GREGORY MD Ot Z93.3 COLOSTOMY STATUS 03/04/2018 ANÍBAL GRESHAM MD Ot C18.9 MALIGNANT NEOPLASM OF COLON, UNSPECIFIED 03/04/2018 ANÍBAL GRESHAM MD Ot 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 03/04/2018 ANÍBAL GRESHAM MD Ot N28.9 DISORDER OF KIDNEY AND URETER, UNSPECIFI 03/04/2018 ANÍBAL GRESHAM MD Ot R35.0 FREQUENCY OF MICTURITION 03/06/2018 VERN BLOCK MD Ot I10 ESSENTIAL (PRIMARY) HYPERTENSION 03/06/2018 VERN BLOCK MD, Ot N39.0 URINARY TRACT INFECTION, SITE NOT SPECIF 03/06/2018 VERN BLOCK MD Ot R11.2 NAUSEA WITH VOMITING, UNSPECIFIED 03/06/2018 VERN BLOCK MD Ot Z85.038 PERSONAL HISTORY OF MALIGNANT NEOPLASM O 03/06/2018 VERN BLOCK MD, Ot Z85.048 PRSNL HX OF MALIG NEOPLM OF RECTUM, RECT 03/06/2018 VERN BLOCK MD Ot Z85.51 PERSONAL HISTORY OF MALIGNANT NEOPLASM O 03/06/2018 VERN BLOCK MD Ot Z87.448 PERSONAL HISTORY OF OTHER DISEASES OF UR 03/06/2018 VERN BLOCK MD Ot Z88.0 ALLERGY STATUS TO PENICILLIN 03/06/2018 VERN BLOCK MD Ot Z90.49 ACQUIRED ABSENCE OF OTHER SPECIFIED PART 03/06/2018 VERN BLOCK MD Ot Z90.710 ACQUIRED ABSENCE OF BOTH CERVIX AND UTER 03/06/2018 VERN BLOCK MD Ot Z92.21 PERSONAL HISTORY OF ANTINEOPLASTIC CHEMO 03/06/2018 VERN BLOCK MD Ot Z96.0 PRESENCE OF UROGENITAL IMPLANTS Procedures Code Description [place] [address] Office or other outpatient visit for the [...] culture - 02/26/18 14:10 Bacterial urine culture [id number] NRG COLONY COUNT . NRG FTX;REPORTABLE WITH [...] test by minimum inhibitory concentration 0.5 NRG Complete blood count (CBC) with automated white blood cell (WBC) differential - 03/04/18 14:30 Blood leukocytes automated count (number/volume) 2.5 10*3/uL 4.3-11.0 Blood erythrocytes automated count (number/volume) 3.25 10*6/uL 4.35-5.85 Venous blood hemoglobin measurement (mass/volume) 9.1 g/dL 11.5-16.0 Blood hematocrit (volume fraction) 30 % 35-52 Automated erythrocyte mean corpuscular volume 93 [foz_us] 80-99 Automated erythrocyte mean corpuscular hemoglobin (mass per erythrocyte) 28 pg 25-34 Automated erythrocyte mean corpuscular hemoglobin concentration measurement ( mass/volume) 30 g/dL 32-36 Automated erythrocyte distribution width ratio 17.2 % 10.0-14.5 Automated blood platelet count (count/volume) 170 10*3/uL 130-400 Automated blood platelet mean volume measurement 9.2 [foz_us] 7.4-10.4 Automated blood neutrophils/100 leukocytes 87 % 42-75 Automated blood lymphocytes/100 leukocytes 7 % 12-44 Blood monocytes/100 leukocytes 5 % 0-12 Automated blood eosinophils/100 leukocytes 1 % 0-10 Automated blood basophils/100 leukocytes 0 % 0-10 Blood neutrophils automated count (number/volume) 2.1 10*3 1.8-7.8 Blood lymphocytes automated count (number/volume) 0.2 10*3 1.0-4.0 Blood monocytes automated count (number/volume) 0.1 10*3 0.0-1.0 Automated eosinophil count 0.0 10*3/uL 0.0-0.3 Automated blood basophil count (count/volume) 0.0 10*3/uL 0.0-0.1 Blood manual differential performed detection - 03/04/18 14:30 Blood monocytes/100 leukocytes 4 % NRG Manual blood segmented neutrophils/100 leukocytes 77 % NRG Blood band neutrophils/100 leukocytes 8 % NRG Manual blood lymphocytes/100 leukocytes 11 % NRG Manual eosinophils/100 leukocytes in nose 0 % NRG Manual blood basophils/100 leukocytes 0 % NRG Blood anisocytosis detection by light microscopy SLIGHT NRG Blood ovalocytes detection by light microscopy SLIGHT NRG Comprehensive metabolic panel - 03/04/18 14:30 Serum or plasma sodium measurement (moles/volume) 144 mmol/L 135-145 Serum or plasma potassium measurement (moles/volume) 5.3 mmol/L 3.6-5.0 Serum or plasma chloride measurement (moles/volume) 110 mmol/L 98-107 Carbon dioxide 22 mmol/L 21-32 Serum or plasma anion gap determination (moles/volume) 12 mmol/L 5-14 Serum or plasma urea nitrogen measurement (mass/volume) 30 mg/dL 7-18 Serum or plasma creatinine measurement (mass/volume) 1.66 mg/dL 0.60-1.30 Serum or plasma urea nitrogen/creatinine mass ratio 18 NRG Serum or plasma creatinine measurement with calculation of estimated glomerular filtration rate 31 NRG Serum or plasma glucose measurement (mass/volume) 116 mg/dL 70-105 Serum or plasma calcium measurement (mass/volume) 9.5 mg/dL 8.5-10.1 Serum or plasma total bilirubin measurement (mass/volume) 0.5 mg/dL 0.1-1.0 Serum or plasma alkaline phosphatase measurement (enzymatic activity/volume) 87 U/L 40-136 Serum or plasma aspartate aminotransferase measurement (enzymatic activity/ volume) 11 U/L 5-34 Serum or plasma alanine aminotransferase measurement (enzymatic activity/volume ) 11 U/L 0-55 Serum or plasma protein measurement (mass/volume) 7.1 g/dL 6.4-8.2 Serum or plasma albumin measurement (mass/volume) 4.0 g/dL 3.2-4.5 CALCIUM CORRECTED 9.5 mg/dL 8.5-10.1 Serum or plasma C reactive protein measurement (mass/volume) - 03/04/18 14:30 Serum or plasma C reactive protein measurement (mass/volume) 6.82 mg /dL 0.00-0.50 Complete urinalysis with reflex to culture - 03/04/18 15:20 Urine color determination YELLOW NRG Urine clarity determination SLIGHTLY CLOUDY NRG Urine pH measurement by test strip 8 5-9 Specific gravity of urine by test strip 1.010 1.016- 1.022 Urine protein assay by test strip, semi-quantitative 3+ NEGATIVE Urine glucose detection by automated test strip NEGATIVE NEGATIVE Erythrocytes detection in urine sediment by light microscopy 4+ NEGATIVE Urine ketones detection by automated test strip NEGATIVE NEGATIVE Urine nitrite detection by test strip POSITIVE NEGATIVE Urine total bilirubin detection by test strip NEGATIVE NEGATIVE Urine urobilinogen measurement by automated test strip (mass/volume) NORMAL NORMAL Urine leukocyte esterase detection by dipstick 2+ NEGATIVE Automated urine sediment erythrocyte count by microscopy (number/high power field) [HPF] NRG Automated urine sediment leukocyte count by microscopy (number/high power field ) [HPF] NRG Bacteria detection in urine sediment by light microscopy FEW NRG Squamous epithelial cells detection in urine sediment by light microscopy 0-2 NRG Crystals detection in urine sediment by light microscopy NONE NRG Casts detection in urine sediment by light microscopy NONE NRG Mucus detection in urine sediment by light microscopy NEGATIVE NRG Complete urinalysis with reflex to culture YES NRG Bacterial urine culture - 03/04/18 15:20 Bacterial urine culture [id number] NRG COLONY COUNT >100,000/ML NRG FTX;REPORTABLE RML REPORTED ID 03/05/18 14:05 NRG FREE TEXT ENTRY 2 SUSCEPTIBILITY REPORTED 03/07/18 08:05 NRG RML Sensitivity Panel - 03/04/18 15:20 Oxacillin susceptibility test by minimum inhibitory concentration > NRG Vancomycin susceptibility test by minimum inhibitory concentration 2 NRG Levofloxacin susceptibility test by minimum inhibitory concentration > NRG Rifampin susceptibility test by minimum inhibitory concentration <= NRG Cefazolin susceptibility test by minimum inhibitory concentration R NRG Nitrofurantoin susceptibility test by minimum inhibitory concentration <= NRG Penicillin G susceptibility test by minimum inhibitory concentration > NRG Encounters ACCT No. Visit Date/Time Discharge Status Pt. Type Provider Facility Loc./Unit Complaint [id number] 06/18/2013 14:31:00 06/18/2013 14:31:00 DIS Outpatient SANIYA GALVAN [facility] ARTES [id number] 05/17/2016 13:25:00 05/17/2016 23:59:00 DIS Outpatient Jordon De Leon [facility] FC Surg TCPA RECURRENT RECTAL MASSES [id number] 06/18/2013 14:33:50 ACT Document Registration [id number] 01/06/2015 09:37:24 Document Registration [id number] 01/06/2015 09:19:22 Document Registration [id number] 09/16/2014 09:28:00 Document Registration [id number] 01/25/2018 14:34:14 01/25/2018 23:59:59 CLS Outpatient Aníbal Gresham [id number] 12/31/2017 15:24:47 12/31/2017 23:59:59 CLS Outpatient OSCAR GODWIN [id number] 12/20/2017 10:24:58 12/20/2017 23:59:59 CLS Outpatient Aníbal Gresham [id number] 12/10/2017 16:50:06 12/10/2017 23:59:59 CLS Outpatient Aníbal Gresham [id number] 11/23/2017 11:11:08 11/23/2017 23:59:59 CLS Outpatient TATO, OSCAR Nassra [id number] 07/30/2017 09:52:17 07/30/2017 23:59:59 CLS Outpatient TATO, OSCAR Nassar [id number] 07/16/2017 07:45:45 07/16/2017 23:59:59 CLS Outpatient TATO, OSCAR Nassar [id number] 07/02/2017 07:39:24 07/02/2017 23:59:59 CLS Outpatient TATO, OSCAR Nassar [id number] 05/24/2017 13:46:52 05/24/2017 23:59:59 CLS Outpatient TATO, OSCAR Nassar [id number] 05/08/2017 08:09:08 05/08/2017 23:59:59 CLS Outpatient TATO, OSCAR Nassar [id number] 04/23/2017 08:20:04 04/23/2017 23:59:59 CLS Outpatient TATO, OSCAR Nassar [id number] 04/10/2017 15:47:08 04/10/2017 23:59:59 CLS Outpatient TATO, OSCAR Nassar [id number] 03/26/2017 08:22:31 03/26/2017 23:59:59 CLS Outpatient TATO, OSCAR Nassar [id number] 02/26/2017 08:04:03 02/26/2017 23:59:59 CLS Outpatient TATO, OSCAR Nassar [id number] 02/12/2017 07:55:02 02/12/2017 23:59:59 CLS Outpatient TATO, OSCAR Nassar [id number] 01/29/2017 08:14:10 01/29/2017 23:59:59 CLS Outpatient TATO, OSCAR Nassar [id number] 01/01/2017 08:27:20 01/01/2017 23:59:59 CLS Outpatient TATO, OSCAR Nassar [id number] 12/18/2016 08:03:03 12/18/2016 23:59:59 CLS Outpatient TATO, OSCAR Nassar [id number] 12/05/2016 10:08:19 12/05/2016 23:59:59 CLS Outpatient TATO, OSCAR Nassar [id number] 11/21/2016 08:12:46 11/21/2016 23:59:59 CLS Outpatient TATOOSCAR [id number] 11/08/2016 15:57:46 11/08/2016 23:59:59 CLS Outpatient TATOOSCAR [id number] 10/23/2016 08:27:18 10/23/2016 23:59:59 CLS Outpatient TATOOSCAR TORREZ [id number] 10/09/2016 07:41:51 10/09/2016 23:59:59 CLS Outpatient TATOOSCAR TORREZ [id number] 09/25/2016 10:24:26 09/25/2016 23:59:59 CLS Outpatient TATOOSCAR [id number] 02/08/2015 15:37:21 02/08/2015 23:59:59 CLS Outpatient Clyde, Oscar [id number] 01/11/2015 15:06:53 01/11/2015 23:59:59 CLS Outpatient Clyde, Oscar [id number] 01/14/2014 15:50:30 01/14/2014 23:59:59 CLS Outpatient Clyde, Oscar [id number] 01/12/2014 14:39:24 01/12/2014 23:59:59 CLS Outpatient Clyde, Oscar [id number] 01/05/2014 13:37:57 01/05/2014 23:59:59 CLS Outpatient Clyde, Oscar [id number] 01/05/2014 10:33:00 01/05/2014 23:59:59 CLS Outpatient Clyde, Oscar [id number] 12/29/2013 10:45:34 12/29/2013 23:59:59 CLS Outpatient Clyde, Oscar [id number] 06/23/2013 16:43:13 06/23/2013 23:59:59 CLS Outpatient Clyde, Oscar [id number] 06/18/2013 23:31:59 06/18/2013 23:59:59 CLS Outpatient Clyde, Oscar [id number] 06/12/2013 07:41:26 06/12/2013 23:59:59 CLS Outpatient Clyde, Oscar [id number] 06/09/2013 14:01:30 06/09/2013 23:59:59 CLS Outpatient Clyde, Oscar [id number] 03/04/2018 13:49:00 03/04/2018 17:30:00 DIS Outpatient VERN BLOCK MD [facility] ER N/V [id number] 02/26/2018 11:02:00 02/26/2018 23:59:59 CLS Outpatient ANÍBAL GRESHAM MD [facility] LAB [id number] 02/26/2018 10:36:00 02/26/2018 23:59:59 CLS Outpatient BILL GREGORY MD [facility] ONC [id number] 12/04/2017 08:58:00 12/18/2017 09:02:00 DIS Outpatient BILL GREGORY MD [facility] ONC [id number] 11/09/2017 09:17:00 11/09/2017 23:59:59 CLS Outpatient BILL GREGORY MD [facility] RAD RECTAL CANCER [id number] 11/08/2017 08:30:00 Document Registration [id number] 06/16/2013 10:17:00 06/16/2013 23:59:59 CLS Outpatient Hamlet Cleveland MD [facility] on Fredo MONZON [id number] 02/06/2018 01:29:10 Document Registration [id number] 01/25/2018 16:33:45 Document Registration [id number] 12/11/2017 12:12:32 Document Registration [id number] 12/10/2017 17:31:39 Document Registration [id number] 11/22/2017 16:54:49 Document Registration [id number] 07/30/2017 15:44:52 Document Registration [id number] 07/16/2017 15:35:35 Document Registration [id number] 07/02/2017 15:18:47 Document Registration [id number] 05/21/2017 15:40:17 Document Registration [id number] 05/08/2017 15:39:12 Document Registration [id number] 04/23/2017 16:02:20 Document Registration [id number] 04/09/2017 16:06:24 Document Registration [id number] 03/26/2017 15:57:02 Document Registration [id number] 02/26/2017 14:57:13 Document Registration [id number] 02/12/2017 16:11:09 Document Registration [id number] 01/29/2017 17:14:43 Document Registration [id number] 01/01/2017 15:27:05 Document Registration [id number] 12/18/2016 14:49:32 Document Registration [id number] 12/05/2016 15:29:21 Document Registration [id number] 11/21/2016 15:02:09 Document Registration [id number] 11/06/2016 15:19:02 Document Registration
[2018-03-12 13:57] LABS: BASOPHILS % (AUTO) 1 % (0-10); EOSINOPHILS # (AUTO) 0.1 10^3/uL (0.0-0.3); EOSINOPHILS % (AUTO) 2 % (0-10); HEMATOCRIT 27 % (35-52); HEMOGLOBIN 8.5 G/DL (11.5-16.0); LYMPHOCYTES # (AUTO) 0.7 X 10^3 (1.0-4.0); LYMPHOCYTES % (AUTO) 23 % (12-44); MEAN CORPUSCULAR HEMOGLOBIN 29 PG (25-34); MEAN CORPUSCULAR HGB CONC 31 G/DL (32-36); MEAN CORPUSCULAR VOLUME 92 FL (80-99); MEAN PLATELET VOLUME 9.2 FL (7.4-10.4); MONOCYTES # (AUTO) 0.9 X 10^3 (0.0-1.0); MONOCYTES % (AUTO) 28 % (0-12); NEUTROPHILS # (AUTO) 1.4 X 10^3 (1.8-7.8); NEUTROPHILS % (AUTO) 46 % (42-75); PLATELET COUNT 280 10^3/uL (130-400); RED BLOOD COUNT 2.95 10^6/uL (4.35-5.85); RED CELL DISTRIBUTION WIDTH 18.3 % (10.0-14.5); WHITE BLOOD COUNT 3.1 10^3/uL (4.3-11.0)
[2018-03-12] MEDS ORDERED: NS IV 1000 ML 1,000 ML IV SCH ×2 (14:00→16:00)
[2018-03-12 14:04] LABS: BILIRUBIN,URINE NEGATIVE (NEGATIVE); CLARITY,URINE CLEAR; COLOR,URINE YELLOW; GLUCOSE, URINE (UA) NEGATIVE (NEGATIVE); KETONES,URINE 1+ (NEGATIVE); LEUKOCYTE ESTERASE ,URINE 3+ (NEGATIVE); NITRITE,URINE NEGATIVE (NEGATIVE); PH,URINE 6 (5-9); PROTEIN,URINE 4+ (NEGATIVE); UROBILINOGEN,URINE NORMAL (NORMAL)
--- NOTE | 2018-03-12 14:05 | ED General ---
General Chief Complaint: General Problems/Pain Stated Complaint: WEAKNESS Nursing Triage Note: TO ED PER W/C WITH FAMILY REPORTS THAT SHE WAS SEEN IN ED ON SUNDAY DX WITH UTI PUT ON MEDS. WAS BETTER FOR 2 DAYS NOW SHE IS WEAK AND NOT EATING OR DRIKING Nursing Sepsis Screen: No Definite Risk Source of Information: Patient, Family Exam Limitations: No Limitations History of Present Illness Date Seen by Provider: Mar 12, 2018 Time Seen by Provider: 14:09 Initial Comments The patient is a 63-year-old white female who presents with generalized weakness. When asked about fever or chills I got an ambivalent answer. She was here on 03/04 having taken chemotherapy at the cancer center on 02/28. Her complaint at that time was nausea and vomiting which had been present since her chemotherapy. She has a diagnosis of rectal carcinoma and subsequently had a permanent colostomy placed. Her states that for the first couple of days following the initiation of treatment for the UTI she appeared to be doing better. Over the last several days she has been doing very poorly her oral intake has been poor including liquids and she has been urinating only rarely. She does not describe pain. Timing/Duration: 1 Week Allergies and Home Medications Allergies Coded Allergies: Penicillins (Verified Allergy, Unknown, 11/08/17) Home Medications Ondansetron 4 Mg Tab.rapdis, 4 MG PO Q6H PRN for NAUSEA/VOMITING Prescribed by: VERN BLOCK on 03/04/18 [id number] Patient Home Medication List Home Medication List Reviewed: Yes Review of Systems Review of Systems Constitutional: see HPI EENTM: no symptoms reported Respiratory: no symptoms reported Cardiovascular: no symptoms reported Gastrointestinal: loss of appetite, other (minimal production and colostomy) Genitourinary: other (generalized weakness) : No Past Hlgggje-Pmpbqt-Xrwttd Hx Patient Social History Alcohol Use: Denies Use Recreational Drug Use: No Smoking Status: Never a Smoker Recent Foreign Travel: No Contact w/Someone Who Travel: No Recent Infectious Disease Expo: No Recent Hopitalizations: No Immunizations Up To Date Tetanus Booster (TDap): Unknown PED Vaccines UTD: Yes Past Medical History Surgeries: Yes Abdominal, Appendectomy, Hysterectomy Respiratory: No Cardiac: Yes Hypertension Neurological: No RHEUMATOLOGY NURSE History: Hysterectomy Genitourinary: Yes (KIDNEY STENT) Renal Failure Gastrointestinal: Yes Musculoskeletal: No Endocrine: No HEENT: No Cancer: Yes Bladder, Rectal, Colon Did You Recieve Any Treatments: Yes What Type of Treatment Did You: Chemotherapy, Radiation, Surgical Intervention Psychosocial: No Integumentary: No Blood Disorders: No Family Medical History No Pertinent Family Hx Physical Exam Vital Signs Vital Signs - First Documented 03/12/18 13:28 Temp 99.5 Pulse 95 Resp 18 B/P (MAP) 151/67 (95) Pulse Ox 96 O2 Delivery Room Air Capillary Refill : Less Than 3 Seconds Height, Weight, BMI Height: 5'4.00" Weight: 175lbs. oz. 79.914412wn; BMI Method:Stated General Appearance: No Apparent Distress, WD/WN Eyes: Bilateral Eye Normal Inspection HEENT: Other (and tongue is dry and sticky) Neck: Full Range of Motion, Normal Inspection, Non Tender, Supple, Carotid Bruit Respiratory: Chest Non Tender, Lungs Clear, Normal Breath Sounds, No Accessory Muscle Use, No Respiratory Distress Cardiovascular: Regular Rate, Rhythm, No Edema, No Gallop, No JVD, No Murmur, Normal Peripheral Pulses Gastrointestinal: Abnormal Bowel Sounds (hypoactive) Back: Normal Inspection Extremity: Normal Capillary Refill, Normal Inspection, Normal Range of Motion, Non Tender, No Calf Tenderness, No Pedal Edema Neurologic/Psychiatric: Other (struggles with response to questioning) Skin: Normal Color, Warm/Dry Lymphatic: No Adenopathy Focused Exam Lactate Level 03/12/18 12:28: Lactic Acid Level 0.87 Lactic Acid Level Progress/Results/Core Measures Suspected Sepsis Recent Fever Within 48 Hours: No Infection Criteria Present: Documented Infection New/Unexplained Altered Menta: No Sepsis Screen: No Definite Risk SIRS Temperature:99.5 Pulse: 95 Respiratory Rate: 18 Laboratory Tests 03/12/18 13:28: White Blood Count 3.1L Blood Pressure 151 /67 Mean: 95 03/12/18 12:28: Lactic Acid Level 0.87 Laboratory Tests 03/12/18 13:28: Creatinine 11.91H, Platelet Count 280, Total Bilirubin 0.4 03/12/18 17:26: Creatinine 11.37#H Results/Orders Lab Results Laboratory Tests Test 03/12/18 12:28 03/12/18 13:28 03/12/18 13:57 03/12/18 17:26 Range/Units Lactic Acid Level 0.87 0.50-2.00 MMOL/L White Blood Count 3.1 L 4.3-11.0 10^3/uL Red Blood Count 2.95 L 4.35-5.85 10^6/uL Hemoglobin 8.5 L 11.5-16.0 G/DL Hematocrit 27 L 35-52 % Mean Corpuscular Volume 92 80-99 FL Mean Corpuscular Hemoglobin 29 25-34 PG Mean Corpuscular Hemoglobin Concent 31 L 32-36 G/DL Red Cell Distribution Width 18.3 H 10.0-14.5 % Platelet Count 280 130-400 10^3/uL Mean Platelet Volume 9.2 7.4-10.4 FL Neutrophils (%) (Auto) 46 42-75 % Lymphocytes (%) (Auto) 23 12-44 % Monocytes (%) (Auto) 28 H 0-12 % Eosinophils (%) (Auto) 2 0-10 % Basophils (%) (Auto) 1 0-10 % Neutrophils # (Auto) 1.4 L 1.8-7.8 X 10^3 Lymphocytes # (Auto) 0.7 L 1.0-4.0 X 10^3 Monocytes # (Auto) 0.9 0.0-1.0 X 10^3 Eosinophils # (Auto) 0.1 0.0-0.3 10^3/uL Basophils # (Auto) 0.0 0.0-0.1 10^3/uL Neutrophils % (Manual) 52 % Lymphocytes % (Manual) 21 % Monocytes % (Manual) 22 % Band Neutrophils 5 % Polychromasia SLIGHT Anisocytosis MARKED Sodium Level 141 141 135-145 MMOL/L Potassium Level 6.9 *H 7.5 *H 3.6-5.0 MMOL/L Chloride Level 107 112 H 98-107 MMOL/L Carbon Dioxide Level 13 L 13 L 21-32 MMOL/L Anion Gap 21 H 16 H 5-14 MMOL/L Blood Urea Nitrogen 100 *H 96 H 7-18 MG/DL Creatinine 11.91 H 11.37 #H 0.60-1.30 MG/DL Estimat Glomerular Filtration Rate 3 3 BUN/Creatinine Ratio 8 8 Glucose Level 103 92 70-105 MG/DL Calcium Level 9.9 8.7 8.5-10.1 MG/DL Corrected Calcium 10.1 8.5-10.1 MG/DL Total Bilirubin 0.4 0.1-1.0 MG/DL Aspartate Amino Transf (AST/SGOT) 12 5-34 U/L Alanine Aminotransferase (ALT/SGPT) 8 0-55 U/L Alkaline Phosphatase 79 40-136 U/L Total Protein 6.9 6.4-8.2 GM/DL Albumin 3.7 3.2-4.5 GM/DL Urine Color YELLOW Urine Clarity CLEAR Urine pH 6 5-9 Urine Specific [place] 1.015 L 1.016-1.022 Urine Protein 4+ NEGATIVE Urine Glucose (UA) NEGATIVE NEGATIVE Urine Ketones 1+ H NEGATIVE Urine Nitrite NEGATIVE NEGATIVE Urine Bilirubin NEGATIVE NEGATIVE Urine Urobilinogen NORMAL NORMAL MG/DL Urine Leukocyte Esterase 3+ H NEGATIVE Urine RBC (Auto) 5+ H NEGATIVE Urine RBC 25-50 H /HPF Urine WBC 10-25 H /HPF Urine Squamous Epithelial Cells 5-10 /HPF Urine Crystals PRESENT H /LPF Urine Amorphous Sediment MOD ROSA URATES H /LPF Urine Bacteria MODERATE H /HPF Urine Casts NONE /LPF Urine Mucus MODERATE H /LPF Urine Culture Indicated YES My Orders Orders - EMANUEL CUNHA MD Cbc With Automated Diff (03/12/18 13:36) Comprehensive Metabolic Panel (03/12/18 13:36) Ua Culture If Indicated (03/12/18 13:36) Manual Differential (03/12/18 13:28) Blood Culture (03/12/18 13:51) Lactic Acid Analyzer (03/12/18 13:51) Ns Iv 1000 Ml (Sodium Chloride 0.9%) (03/12/18 14:00) Urine Culture (03/12/18 13:57) Ct Abdomen/Pelvis Wo (03/12/18 14:39) Ns Iv 1000 Ml (Sodium Chloride 0.9%) (03/12/18 16:00) Ekg Tracing (03/12/18 17:15) Catheter(Urinary) Insert & Ass 03,15 (03/12/18 17:15) Basic Metabolic Panel (03/12/18 17:15) Sodium Polystyrene Sulfonate (Kayexalate (03/12/18 17:30) Insulin Aspart (Novolog) (Novolog (Charg (03/12/18 17:30) D50w (Emergency) Syringe (Dextrose 50% 5 (03/12/18 17:30) Calcium Gluconate 10% Inj (Calcium Glu (03/12/18 17:49) Calcium Gluconate 10% Inj (Calcium Glu (03/12/18 18:14) Medications Given in ED Current Medications Medications Dose Ordered Sig/Sophy Route Start Time Stop Time Status Last Admin Dose Admin Calcium Gluconate 4.65 meq STK-MED ONCE .ROUTE 03/12/18 17:49 03/12/18 17:52 DC 03/12/18 17:56 4.65 MEQ Calcium Gluconate 4.65 meq STK-MED ONCE .ROUTE 03/12/18 18:14 03/12/18 18:17 DC 03/12/18 18:19 4.65 MEQ Dextrose 25 ml ONCE ONCE IV 03/12/18 17:30 03/12/18 17:31 DC 03/12/18 17:39 25 ML Insulin Aspart 10 unit ONCE ONCE SC 03/12/18 17:30 03/12/18 17:31 DC 03/12/18 17:41 10 UNIT Vital Signs/I&O 03/12/18 03/12/18 03/12/18 03/12/18 13:28 14:30 16:24 18:02 Temp 99.5 Pulse 95 92 85 89 Resp 18 18 18 18 B/P (MAP) 151/67 (95) 108/37 (60) 110/49 (69) 143/65 (91) Pulse Ox 96 92 94 94 O2 Delivery Room Air Room Air Room Air Room Air Capillary Refill : Less Than 3 Seconds Blood Pressure Mean: 95 Departure Communication (Admissions) DISCUSSED WITH KATY RIVAS AND [place]. PT IS TO BE ADMITTED TO [facility] REGIMEN TO DECREASE K WAS GIVEN BY DR ALTAMIRANO. Impression Primary Impression: RENAL FAILURE Additional Impressions: Rectal cancer metastasized to lung RECTAL CA Disposition: XFER SHT-TRM HOSP Condition: Critical Transfer Time Spoke to Accepting Phy: 17:00 Transfer Facility: [facility] Method of Transfer: EMS Departure-Patient Inst. Referrals: JAYCEE GODWIN (PCP/Family) Primary Care Physician EMANUEL CUNHA MD Mar 12, 2018 14:05
[2018-03-12 14:15] LABS: ALBUMIN 3.7 GM/DL (3.2-4.5); BILIRUBIN,TOTAL 0.4 MG/DL (0.1-1.0); CALCIUM 9.9 MG/DL (8.5-10.1); CREATININE SERUM 11.91 MG/DL (0.60-1.30); TOTAL PROTEIN 6.9 GM/DL (6.4-8.2)
[2018-03-12 14:16] LABS: BACTERIA,URINE MODERATE /HPF; RBC,URINE 25-50 /HPF
[2018-03-12 14:17] LABS: AMORPHOUS SEDIMENT,UR MOD AMOR URATES /LPF
[2018-03-12 14:22] LABS: BAND NEUTROPHILS 5 %; LYMPHOCYTES % (MANUAL) 21 %; MONOCYTES % (MANUAL) 22 %; NEUTROPHILS % (MANUAL) 52 %
[2018-03-12 14:23] LABS: ANISOCYTOSIS MARKED; POLYCHROMASIA SLIGHT
[2018-03-12 14:24] LABS: POTASSIUM 6.9 MMOL/L (3.6-5.0)
[2018-03-12 14:30] VITALS: BP 108/37
[2018-03-12 16:14] VITALS: BP 111/48
--- NOTE | 2018-03-12 16:17 | Diagnostic Imaging Report ---
CLINICAL INDICATION: Patient was seen in ED on Sunday, diagnosed with UTI and put on meds. Patient was better for two days and now she is weak and not eating or drinking. EXAM: CT scan of the abdomen and pelvis performed without IV contrast. Coronal and sagittal reformatted images are created. COMPARISON: CT scan of the chest, abdomen, and pelvis dated 11/09/2017. FINDINGS: Again seen are multiple soft tissue masses throughout the visualized bilateral lung bases with some demonstrating central cavitation. A marker/largest nodular area is seen in the medial left lung base measuring 10 mm and is stable compared to the prior study. There is no pleural effusion. There is facet arthropathy involving the lower lumbar spine. There are degenerative spurs involving the lumbar spine. The liver, gallbladder, spleen, and pancreas show no significant interval abnormality. Partial fatty replacement and atrophy of the pancreas is again seen. There is interval development of severe hydronephrosis of the right kidney. There is interval placement of a double-J right ureteral stent which appears to be in appropriate location. The bladder is decompressed. There is enlargement of the right kidney with adjacent fat stranding. There is no visualized obstructive lesion seen. There is stable severe left hydroureteronephrosis with atrophy of the left kidney. There is no urinary tract stone. Again seen postop changes to the pelvis with amorphous soft tissue and thickening which is more so along the left pelvic wall with multiple surgical clips and calcification seen in the region. Again seen multiple enlarged lymph nodes along the left para-aortic and left iliac chain region which appear partially calcified. There are also prominent lymph nodes in the preaortic region near the renal arteries. There is no significant change to the amorphous mass-like changes in the left pelvis region. There is no evidence of intestinal obstruction. Rectal resection is seen. Colostomy overlying left abdomen is again noted with herniation of fat into the region. There is small amount of stool within the right colon region. There is no significant intra-abdominal free air or free fluid. Anterior abdominal wall incision is again seen. IMPRESSION: 1: There is interval development of moderate right hydronephrosis. There is also interval placement of a right double-J ureteral stent. There is no visible obstructive lesion seen. The bladder is decompressed. 2: There is stable severe left hydronephrosis and atrophy of the left kidney. 3: Left abdominal colostomy is again seen. 4: The remainder of this exam shows no significant interval change compared to the prior study of comparison. Dictated by: Dictated on workstation # [id number]
[2018-03-12 16:24] VITALS: BP 110/49
[2018-03-12] MEDS ORDERED: DEXTROSE 50% 50 ML (IMS) SYR IV ONE (17:30)
[2018-03-12] MEDS ORDERED: inSUlin ASPART (NovoLOG) 1 UNIT/0.01 ML (CHARGE PER UNIT) SC ONE (17:30)
[2018-03-12] MEDS: SOD POLYSTERENE 15 GM/60 ML (KAYEXALATE) UNIT DOSE PO ONE ×2 (17:44→17:45)
[2018-03-12 17:46] LABS: CALCIUM 8.7 MG/DL (8.5-10.1); CREATININE SERUM 11.37 MG/DL (0.60-1.30)
[2018-03-12] MEDS ORDERED: CALCIUM GLUC. 10% 4.65 MEQ/10 ML VIAL ONE ×2 (17:49→18:14)
[2018-03-12 17:54] LABS: POTASSIUM 7.5 MMOL/L (3.6-5.0)
[2018-03-12 18:02] VITALS: BP 143/65
[2018-03-12 18:46] VITALS: BP 143/65
[2018-03-13] MEDS ORDERED: NS IV 1000 ML 1,000 ML ONE (07:37)
== END 2018-03-12 18:48 | disposition short-term general hospital (02) ==
LOC: EDUNIT# 13:23 → ER 13:24
DX: N19 Unspecified kidney failure (principal); C21.8 Malignant neoplasm of overlapping sites of rectum, anus and anal canal; C78.00 Secondary malignant neoplasm of unspecified lung; C79.11 Secondary malignant neoplasm of bladder; I10 Essential (primary) hypertension; Z87.448 Personal history of other diseases of urinary system; Z96.0 Presence of urogenital implants; Z88.0 Allergy status to penicillin; Z92.21 Personal history of antineoplastic chemotherapy; Z93.0 Tracheostomy status; Z87.440 Personal history of urinary (tract) infections; Z90.49 Acquired absence of other specified parts of digestive tract; Z90.710 Acquired absence of both cervix and uterus
CPT/HCPCS: 36415; 74176; 80048; 80053; 81000; 83605; 85007; 85027; 87040; 87077; 87088; 87186; 93005; 96361; 96372; 96374; 96375

== ENCOUNTER 2018-06-05 10:07 | Emergency (ER) | payer BC ==
[~2018-06-05] VITALS: Ht 162.6 cm; Wt 72.6 kg
--- NOTE | 2018-06-05 10:18 | NUR ---
Fiorella boogie in [facility] - 06/05/18 at 1516 by [facility] TO DRAW BLOOD.
--- OUTSIDE RECORDS SUMMARY | 2018-06-05 10:29 | XMS REPORT ---
Author Author OSCAR GODWIN [facility] Address [address] [place], [place] [id number] Care Team Providers Care Business Services Tech Name Role Phone OSCAR GODWIN PCP OSCAR GODWIN PreferredProvider Allergies and Adverse Reactions Name Reaction Notes PENICILLINS Plan of Treatment Planned Activity Comments Planned Date Planned Time Plan/Goal URINALYSIS W/MICRO C&S IF IND 02/05/2018 12:00 AM CBC W/ AUTO DIFF (RFLX MAN DIFF IF IND). 02/05/2018 12:00 AM BMP 02/05/2018 12:00 AM URINALYSIS W/MICRO C&S IF IND 03/04/2018 12:00 AM Medications Active Name Start Date Estimated Completion Date SIG Comments hydrocodone-acetaminophen 5-325 mg oral tablet take 1 tablet by oral route every 6 hours as needed OxyContin 15 mg oral tablet,oral only,ext.rel.12 hr take 1 tablet (15 mg ) by oral route every 12 hours furosemide 20 mg oral tablet 01/04/2018 take 1 tablet (20 mg) by oral route once daily lisinopril 20 mg oral tablet 01/07/2018 take 1 tablet (20 mg) by oral route once daily duloxetine 60 mg oral capsule,delayed release(DR/EC) 04/11/2018 take 1 capsule (60 mg) by oral route once daily Dialyvite 800 800 mcg oral tablet,chewable calcium acetate 667 mg oral tablet take 2 tablets (1,334 mg) by oral route 3 times per day with meals Klor-Con M20 20 mEq oral tablet,ER particles/crystals take 1 tablet (20 meq) by oral route 2 times per day with food levofloxacin 250 mg oral tablet 04/22/2018 take 1 tablets (250 mg) by oral route every 48 hours Niferex (Sumalate-Quatrefolic) 150 mg iron- 60 mg-1 mg oral tablet 05/02/2018 take 1 tablet by oral route daily ondansetron 8 mg oral tablet,disintegrating 05/02/2018 take 1 tablet (8 mg ) and place on top of the tongue where it will dissolve, then swallow by oral route 2 times per day oxybutynin chloride 10 mg oral tablet extended release 24hr 05/08/2018 take 1 tablet (10 mg) by oral route once daily Name Start Date Expiration Date SIG Comments prednisone 20 mg oral tablet 07/06/2015 07/14/2015 4x2 days 3x2 days 2x2 days 1x2 days Suphedrine 30 mg oral tablet 07/06/2015 07/06/2015 take 1 tablets by oral route every 4 hours as needed Discontinued Name Start Date Discontinued Date SIG Comments Glucosamine 500 mg oral tablet 04/19/2018 take 1 tablet by oral route daily iron 325 mg (65 mg iron) oral capsule, extended release 01/11/2015 take 1 capsule by oral route daily Emma-C with Bioflavonoids 500-200 mg oral tablet 04/19/2018 take 1 tablet by oral route daily Flagyl 500 mg oral tablet 12/29/2013 01/05/2014 take 1 tablet (500 mg) by oral route 3 times per day for 10 days gabapentin 300 mg oral capsule 04/19/2018 take 1 capsule (300 mg) by oral route 3 times per day silver sulfadiazine 1 % topical cream 02/26/2017 12/10/2017 apply a 1/16 inch (1.5 mm) thick layer to entire burn area by topical route once daily Bactrim DS 800-160 mg oral tablet 04/03/2018 04/19/2018 take 1 tablet by oral route 2 times a day for 10 days Problem List Description Status Onset Anemia Active Rectal Neoplasm, Malignant Active Colorectal cancer Active 01/08/2018 Essential hypertension Active 01/08/2018 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 01/08/2018 Vital Signs Date Time BP-Sys(mm[Hg] BP-Diane(mm[Hg]) HR(bpm) RR(rpm) Temp WT HT HC BMI BSA BMI Percentile O2 Sat(%) 04/19/2018 10:04:00 AM 144 mmHg 80 mmHg 90 bpm 18 rpm 99 F 174.375 lbs 64 in 29.9311 kg/m 1.8899 m 97 % 04/03/2018 4:41:00 PM 138 mmHg 76 mmHg 94 bpm 18 rpm 98.4 F 176 lbs 98 % 01/25/2018 1:50:00 PM 130 mmHg 70 mmHg [...] 01/25/2018 12:00 AM URINALYSIS AUTO W/SCOPE Reviewed 04/19/2018 12:00 AM URINALYSIS AUTO W/SCOPE Reviewed 04/19/2018 12:00 AM METABOLIC PANEL TOTAL CA Reviewed 04/19/2018 12:00 AM COMPLETE CBC W/AUTO DIFF WBC Reviewed 05/02/2018 12:00 AM ROUTINE VENIPUNCTURE Reviewed 05/02/2018 12:00 AM ASSAY OF TOTAL THYROXINE Returned 05/02/2018 12:00 AM ASSAY THYROID STIM HORMONE Returned 05/02/2018 12:00 AM ASSAY OF THYROID (T3 OR T4) Returned 01/14/2014 12:00 AM FLU VAC NO [...] NEGATIVE YEAST NEGATIVE CULT SET UP? YES 04/19/2018 11:25 AM WBC 6.3 RBC 2.98 HGB 8.7 HCT 28.8 MCV 97 MCH 29.2 MCHC 30.2 RDW SD 61 RDW CV 17.3 MPV 9.5 PLT 162 NRBC# 0.00 NRBC% 0.0 %NEUT 78.5 %LYMP 12.1 %MONO 6.5 %EOS 2.1 %BASO 0.5 #NEUT 4.95 #LYMP 0.76 #MONO 0.41 #EOS 0.13 # BASO 0.03 MANUAL DIFF NOT IND GLUCOSE 100 SODIUM 145 POTASSIUM 3.5 CHLORIDE 107 CO2 27 BUN 42 CREATININE 2.9 CALCIUM 9.4 AGE 63 GFR NonAA 16 GFR AA 19 eGFR 16 eGFR AA* 19 History Of Immunizations Name Date Admin Mfg Name Mfg Code Trade Name Lot# Route Inj Vis Given Vis Pub CVX Influenza 01/11/2015 sanofi pasteur PMC Fluzone > 12 Years [id number] Intramuscular Right Deltoid 01/12/2015 10/23/2014 141 Pneumococcal 01/11/2015 Pfizer, Inc. PFR Prevnar [id number] Intramuscular Left Deltoid 01/12/2015 03/19/2014 100 X 01/11/2015 Pfizer, Inc. PFR Prevnar [id number] Intramuscular Left Deltoid 01/12/2015 03/19/2014 100 History [...] 1:52PM Preop examination Feb 05 2018 10:05AM Urinary Frequency Mar 04 2018 1:57PM Renal dysfunction Mar 04 2018 1:57PM Colon cancer metastasized to multiple sites Mar 04 2018 1:57PM Cellulitis of left lower extremity Apr 03 2018 4:41PM Preop examination Apr 19 2018 10:45AM Chronic renal failure Apr 19 2018 10:06AM Left renal atrophy Apr 19 2018 10:06AM Hydronephrosis Apr 19 2018 10:06AM Metastatic colon cancer in female Apr 19 2018 10:06AM Bladder mass Apr 19 2018 10:06AM Fatigue May 02 2018 10:41AM Payers Insurance Name Company Name Plan Name Plan Number Policy Number Policy Group Number Start Date [employer] [place] [id number] N/A [employer] [place] [id number] N/A [employer] [place] [id number] N/A [employer] [place] [id number] N/A [employer] [place] [id number] Thursday, 2015 History of Encounters Visit Date Visit Type Provider 05/02/2018 Office visit OSCAR RODARTE 04/26/2018 Surgery Mitch Gresham MD 04/19/2018 Office visit Mitch Gresham MD 04/03/2018 Office visit OSCAR RODARTE 01/25/2018 Office visit Mitch Gresham MD 12/31/2017 Office visit OSCAR RODARTE 12/11/2017 Surgery Mitch Gresham MD 12/10/2017 Office visit Mitch Gresham MD 11/22/2017 Laboratory OSCAR RODARTE 07/30/2017 Laboratory OSCAR RODARTE 07/16/2017 Laboratory OSCAR RODARTE 07/02/2017 Laboratory OSCAR GODWIN PA 05/21/2017 Laboratory OSCAR GODWIN PA 05/08/2017 Laboratory OSCAR GODWIN PA 04/23/2017 Laboratory OCSAR GODWIN PA 04/09/2017 Laboratory OSCAR GODWIN PA [...]
--- OUTSIDE RECORDS SUMMARY | 2018-06-05 10:30 | XMS REPORT ---
Author Author OSCAR GODWIN [facility] Address [address] [place], [place] [id number] Care Team Providers Care Second Floor Operator Name Role Phone OSCAR GODWIN PCP OSCAR GODWIN PreferredProvider Allergies and Adverse Reactions Name Reaction Notes PENICILLINS Plan of Treatment Planned Activity Comments Planned Date Planned Time Plan/Goal URINALYSIS W/MICRO C&S IF IND 02/05/2018 12:00 AM CBC W/ AUTO DIFF (RFLX MAN DIFF IF IND). 02/05/2018 12:00 AM BMP 02/05/2018 12:00 AM URINALYSIS W/MICRO C&S IF IND 03/04/2018 12:00 AM THYROID PANEL. 05/02/2018 12:00 AM THYROID PANEL. 05/02/2018 12:00 AM THYROID PANEL. 05/02/2018 12:00 AM Medications Active Name Start Date [...] mg) by oral route every 48 hours Name Start Date Expiration Date SIG [...] Reviewed 05/02/2018 12:00 AM ROUTINE VENIPUNCTURE Reviewed 01/14/2014 12:00 [...] sanofi pasteur PMC Fluzone > 12 Years [id number] Intramuscular Right Deltoid 01/12/2015 10/23/2014 141 Pneumococcal 01/11/2015 Pfizer, Inc. PFR Prevnar [id number] Intramuscular Left Deltoid 01/12/2015 03/19/2014 100 X 01/11/2015 Pfizer, Inc. PFR Prevnar [id number] Intramuscular Left Deltoid 01/12/2015 03/19/2014 100 History [...] Number Start Date [employer] [place] [id number] N/A [employer] [place] [id number] N/A [employer] [place] [id number] N/A [employer] [place] [id number] N/A [employer] [place] [id number] Thursday, 2015 History of Encounters Visit Date Visit Type Provider 05/02/2018 Office visit OSCAR RODARTE 04/19/2018 Office visit Mitch Gresham MD 04/03/2018 Office visit OSCAR RODARTE 01/25/2018 Office visit Mitch Gresham MD 12/31/2017 Office visit OSCAR RODARTE 12/11/2017 Surgery Mtich Gresham MD 12/10/2017 Office visit Mitch Gresham MD 11/22/2017 Laboratory OSCAR RODARTE 07/30/2017 Laboratory OSCAR RODARTE 07/16/2017 Laboratory OSCAR RODARTE 07/02/2017 Laboratory OSCAR RODARTE 05/21/2017 Laboratory OSCAR RODARTE 05/08/2017 Laboratory OSCAR RODARTE 04/23/2017 Laboratory OSCAR RODARTE 04/09/2017 Laboratory OSCAR GODWIN PA 03/26/2017 Laboratory OSCAR RODARTE 02/26/2017 Laboratory SOCAR GODWIN PA 02/12/2017 Office visit OSCAR RODARTE 01/29/2017 Laboratory OSCAR GODWIN PA 01/01/2017 Laboratory [...] 12/29/2013 Office visit Oscar Jonas MD 12/26/2013 [facility] Oscar Jonas MD 06/19/2013 [facility] Oscar Jonas MD 06/09/2013 Office visit Oscar Jonas MD 06/07/2013 Hospital Oscar Jonas MD 06/06/2013 [facility] Oscar Jonas MD
--- OUTSIDE RECORDS SUMMARY | 2018-06-05 10:30 | XMS REPORT ---
Author Author Mitch Gresham Organization [facility] Address [address] [place], [place] [id number] Care Team Providers Care Binder Stripper Machine Name Role Phone Mp Mitch PCP OSCAR GODWIN PreferredProvider Allergies and Adverse [...] AM COMPLETE CBC W/AUTO DIFF WBC Reviewed 01/14/2014 12:00 AM FLU VAC NO [...] sanofi pasteur PMC Fluzone > 12 Years [id number] Intramuscular Right Deltoid 01/12/2015 10/23/2014 141 Pneumococcal 01/11/2015 Pfizer, Inc. PFR Prevnar [id number] Intramuscular Left Deltoid 01/12/2015 03/19/2014 100 X 01/11/2015 Pfizer, Inc. PFR Prevnar [id number] Intramuscular Left Deltoid 01/12/2015 03/19/2014 100 History [...] 10:06AM Bladder mass Apr 19 2018 10:06AM Payers Insurance Name Company Name Plan Name Plan Number Policy Number Policy Group Number Start Date [employer] [place] [id number] N/A [employer] [place] [id number] N/A [employer] [place] [id number] N/A [employer] [place] [id number] N/A [employer] [place] [id number] Thursday, 2015 History of Encounters Visit Date Visit Type Provider 04/19/2018 Office visit Mitch Gresham MD 04/03/2018 [...] Laboratory OSCAR GODWIN PA 10/23/2016 Laboratory OSCAR RODARTE 10/09/2016 Laboratory OSCAR RODARTE 09/25/2016 Laboratory OSCAR RODARTE 07/06/2015 Office visit OSCAR RODARTE 01/22/2015 Hospital Oscar Jonas MD 01/11/2015 Office visit Oscar Jonas MD 01/14/2014 Nurse visit Oscar Jonas MD 01/12/2014 Office visit Oscar Jonas MD 01/05/2014 Office visit Oscar Jonas MD 12/29/2013 Office visit Oscar Jonas MD 12/26/2013 [facility] Oscar Jonas MD 06/19/2013 [facility] Oscar Jonas MD 06/09/2013 Office visit Oscar Jonas MD 06/07/2013 [facility] Oscar Jonas MD 06/06/2013 [facility] Oscar Jonas MD
--- OUTSIDE RECORDS SUMMARY | 2018-06-05 10:31 | XMS REPORT ---
Author Author Mitch Gresham [facility] Address [address] [place], [place] [id number] Care Team Providers Care Supervisor Estimator And Drafter Name Role Phone Mp Mitch PCP OSCAR [...] route 2 times per day with food Name Start Date Expiration Date SIG Comments [...] sanofi pasteur PMC Fluzone > 12 Years [id number] Intramuscular Right Deltoid 01/12/2015 10/23/2014 141 Pneumococcal 01/11/2015 Pf[employer] Inc. PFR Prevnar [id number] Intramuscular Left Deltoid 01/12/2015 03/19/2014 100 X 01/11/2015 Pf[employer], Inc. PFR Prevnar [id number] Intramuscular Left Deltoid 01/12/2015 03/19/2014 100 History [...] Number Start Date [employer] [place] [id number] N/A [employer] [place] [place] [id number] N/A [employer] [place] [place] [id number] N/A [employer] [place] [place] [id number] N/A [employer] [place] [id number] Thursday, 2015 History of Encounters Visit Date [...] Laboratory OSCAR GODWIN PA 09/25/2016 Laboratory OSCAR RODARTE 07/06/2015 Office visit OSCAR RODARTE 01/22/2015 Hospital Oscar Jonas MD 01/11/2015 Office visit Oscar Jonas MD 01/14/2014 Nurse visit Oscar Jonas MD 01/12/2014 Office visit Oscar Jonas MD 01/05/2014 Office visit Oscar Jonas MD 12/29/2013 Office visit Oscar Jonas MD 12/26/2013 [facility] Oscar Jonas MD 06/19/2013 [facility] Oscar Jonas MD 06/09/2013 Office visit Oscar Jonas MD 06/07/2013 [facility] Oscar Jonas MD 06/06/2013 [facility] Oscar Jonas MD
--- OUTSIDE RECORDS SUMMARY | 2018-06-05 10:31 | XMS REPORT ---
Author Author Mitch Gresham Organization [facility] Address [address] [place], [place] [id number] Care Team Providers Care Apprentice Photographer Name Role Phone Mp Mitch PCP OSCAR [...] Reviewed 04/19/2018 12:00 AM URINALYSIS AUTO W/SCOPE Returned 04/19/2018 12:00 AM METABOLIC PANEL TOTAL CA Returned 04/19/2018 12:00 AM COMPLETE CBC W/AUTO DIFF WBC Returned 01/14/2014 12:00 AM FLU VAC NO [...] sanofi pasteur PMC Fluzone > 12 Years [id number] Intramuscular Right Deltoid 01/12/2015 10/23/2014 141 Pneumococcal 01/11/2015 Pfizer, Inc. PFR Prevnar [id number] Intramuscular Left Deltoid 01/12/2015 03/19/2014 100 X 01/11/2015 Pf[employer], Inc. PFR Prevnar [id number] Intramuscular Left Deltoid 01/12/2015 03/19/2014 100 History [...] 4:41PM Preop examination Apr 19 2018 10:45AM Payers Insurance Name Company Name Plan Name Plan Number Policy Number Policy Group Number Start Date [employer] [place] [id number] N/A [employer] [place] [id number] N/A [employer] [place] [id number] N/A [employer] [place] [id number] N/A [employer] [place] [id number] Thursday, 2015 History of Encounters Visit Date Visit Type Provider 04/19/2018 Office visit Mitch Gresham MD 04/03/2018 Office visit OSCAR GODWIN PA 01/25/2018 Office visit Mitch Gresham MD 12/31/2017 Office visit OSCAR GODWIN PA 12/11/2017 Surgery Mitch Gresham MD 12/10/2017 Office visit Mitch Gresham MD 11/22/2017 Laboratory OSCAR GODWIN PA 07/30/2017 Laboratory OSCAR GODWIN PA 07/16/2017 Laboratory OSCAR PENAER PA 07/02/2017 Laboratory OSCAR GODWIN PA 05/21/2017 Laboratory OSCAR PENAER PA 05/08/2017 Laboratory OSCAR PENAER PA 04/23/2017 Laboratory OSCAR PENAER PA 04/09/2017 Laboratory OSCAR PENAER PA 03/26/2017 Laboratory OSCAR PENAER PA 02/26/2017 Laboratory OSCAR PENAER PA 02/12/2017 Office visit OSCAR GODWIN PA 01/29/2017 Laboratory OSCAR PENAER PA 01/01/2017 Laboratory OSCAR PENAER PA 12/18/2016 Laboratory OSCAR PENAER PA 12/05/2016 Laboratory OSCAR PENAER PA 11/21/2016 Laboratory OSCAR PENAER PA 11/06/2016 Laboratory OSCAR GOWDIN PA 10/23/2016 Laboratory OSCAR PENAER PA 10/09/2016 Laboratory OSCAR GODWIN PA 09/25/2016 Laboratory OSCAR GODWIN PA 07/06/2015 Office visit OSCAR GODWIN PA 01/22/2015 [facility] Oscar Jonas MD 01/11/2015 Office [...]
--- OUTSIDE RECORDS SUMMARY | 2018-06-05 10:32 | XMS REPORT ---
Author Author Mitch Gresham Organization [facility] Address [address] [place], [place] [phone] Care Team Providers Care Forestry Tree Pruner Name Role Phone MpMitch PCP OSCAR GODWIN PreferredProvider Allergies and Adverse Reactions Name Reaction Notes PENICILLINS Plan of Treatment Planned Activity Comments Planned Date Planned Time Plan/Goal URINALYSIS W/MICRO C&S IF IND 02/05/2018 12:00 AM CBC W/ AUTO DIFF (RFLX MAN DIFF IF IND). 02/05/2018 12:00 AM BMP 02/05/2018 12:00 AM URINALYSIS W/MICRO C&S IF IND 03/04/2018 12:00 AM URINALYSIS W/MICRO C&S IF IND 04/19/2018 12:00 AM Medications Active Name Start Date [...] sanofi pasteur PMC Fluzone > 12 Years [id number] Intramuscular Right Deltoid 01/12/2015 10/23/2014 141 Pneumococcal 01/11/2015 Pfizer, Inc. PFR Prevnar [id number] Intramuscular Left Deltoid 01/12/2015 03/19/2014 100 X 01/11/2015 Pfizer, Inc. PFR Prevnar [id number] Intramuscular Left Deltoid 01/12/2015 03/19/2014 100 History [...] Number Start Date [employer] [place] [id number] N/A [employer] [place] [id number] N/A [employer] [place] [id number] N/A [employer] [place] [id number] N/A [employer] [place] [id number] Thursday, 2015 History of Encounters Visit Date [...] Laboratory OSCAR GODWIN PA 05/08/2017 Laboratory OSCAR PENAER PA 04/23/2017 [...] 11/06/2016 Laboratory OSCAR GODWIN PA 10/23/2016 Laboratory SOCAR GODWIN PA 10/09/2016 Laboratory OSCAR GODWIN PA 09/25/2016 Laboratory OSCAR GODWIN PA 07/06/2015 Office visit OSCAR GODWIN PA 01/22/2015 [facility] Oscar Jonas MD 01/11/2015 Office visit Oscar Jonas MD 01/14/2014 Nurse visit Oscar Jonas MD 01/12/2014 Office visit Oscar Jonas MD 01/05/2014 Office visit Oscar Jonas MD 12/29/2013 Office visit Oscar Jonas MD 12/26/2013 Hospital Oscar Jonas MD 06/19/2013 [facility] Oscar Jonas MD 06/09/2013 Office visit Oscra Jonas MD 06/07/2013 Hospital Oscar Jonas MD 06/06/2013 Hospital Oscar Jonas MD
--- OUTSIDE RECORDS SUMMARY | 2018-06-05 10:33 | XMS REPORT ---
Author Author Mitch Gresham Organization [facility] Address [address] [place], [place] [id number] Care Team Providers Care Reserve Operator Name Role Phone TonyMitch dos santos PCP OSCAR GODWIN PreferredProvider Allergies and Adverse Reactions Name Reaction Notes PENICILLINS Plan of Treatment Planned Activity Comments Planned Date Planned Time Plan/Goal URINALYSIS W/MICRO C&S IF IND 02/05/2018 12:00 AM CBC W/ AUTO DIFF (RFLX MAN DIFF IF IND). 02/05/2018 12:00 AM BMP 02/05/2018 12:00 AM URINALYSIS W/MICRO C&S IF IND 03/04/2018 12:00 AM URINALYSIS W/MICRO C&S IF IND 04/19/2018 12:00 AM BMP 04/19/2018 12:00 AM CBC W/ AUTO DIFF (RFLX MAN DIFF IF IND). 04/19/2018 12:00 AM Medications Active Name Start [...] sanofi pasteur PMC Fluzone > 12 Years [id number] Intramuscular Right Deltoid 01/12/2015 10/23/2014 141 Pneumococcal 01/11/2015 Pfizer, Inc. PFR Prevnar [id number] Intramuscular Left Deltoid 01/12/2015 03/19/2014 100 X 01/11/2015 Pfizer, Inc. PFR Prevnar [id number] Intramuscular Left Deltoid 01/12/2015 03/19/2014 100 History [...] Group Number Start Date [employer] [place] [id number] N/A [employer] [place] [id number] N/A [employer] [place] [id number] N/A [employer] [place] [id number] N/A [employer] [place] [id number] Thursday, 2015 History of Encounters Visit Date Visit Type Provider 04/19/2018 Office visit Mitch Gresham MD 04/03/2018 Office visit OSCAR GODWIN PA 01/25/2018 Office visit Mitch Gresham MD 12/31/2017 Office visit OSCAR GODWIN PA 12/11/2017 [facility] Mitch Gresham MD 12/10/2017 Office visit Mitch [...] Laboratory OSCAR PENAER PA 11/06/2016 Laboratory OSCAR PENAER PA 10/23/2016 Laboratory OSCAR PENAER PA 10/09/2016 Laboratory OSCAR PENAER PA 09/25/2016 Laboratory OSCAR GODWIN PA 07/06/2015 Office visit OSCAR GODWIN PA 01/22/2015 [facility] Oscar Jonas MD 01/11/2015 Office visit Oscar Jonas MD 01/14/2014 Nurse visit Oscar Jonas MD 01/12/2014 Office visit Oscar Jonas MD 01/05/2014 Office visit Oscar Jonas MD 12/29/2013 Office visit Oscar Jonas MD 12/26/2013 Hospital Oscar Jonas MD 06/19/2013 [facility] Oscar Jonas MD 06/09/2013 Office visit Oscar Jonas MD 06/07/2013 Hospital Oscar Jonas MD 06/06/2013 [facility] Oscar Jonas MD
--- OUTSIDE RECORDS SUMMARY | 2018-06-05 10:33 | XMS REPORT ---
Author Author OSCAR GODWIN [facility] Address [address] [place], [place] [phone] Care Team Providers Care Sweet Pickled Fruit Maker Name Role Phone OSCAR GODWIN PCP OSCAR [...] by oral route 3 times per day hydrocodone-acetaminophen 5-325 mg oral tablet take 1 [...] (20 mg) by oral route once daily Bactrim DS 800-160 mg oral tablet 04/03/2018 04/23/2018 take 1 tablet by oral route 2 times a day for 10 days duloxetine 60 mg oral capsule,delayed release(DR/EC) 04/11/2018 take 1 capsule (60 mg) by oral route once daily Name [...] Active 01/08/2018 Vital Signs Date Time BP-Sys(mm[Hg] BP-Dinae(mm[Hg]) HR(bpm) RR(rpm) Temp WT HT HC BMI BSA BMI Percentile O2 Sat(%) 04/03/2018 4:41:00 PM 138 mmHg 76 mmHg [...] sanofi pasteur PMC Fluzone > 12 Years [id number] Intramuscular Right Deltoid 01/12/2015 10/23/2014 141 Pneumococcal 01/11/2015 Pfizer, Inc. PFR Prevnar [id number] Intramuscular Left Deltoid 01/12/2015 03/19/2014 100 X 01/11/2015 Pfizer, Inc. PFR Prevnar [id number] Intramuscular Left Deltoid 01/12/2015 03/19/2014 100 History [...] left lower extremity Apr 03 2018 4:41PM Payers Insurance Name Company Name Plan Name Plan Number Policy Number Policy Group Number Start Date [employer] [place] [id number] N/A [employer] [place] [id number] N/A [employer] [place] [id number] N/A [employer] [place] [id number] N/A [employer] [place] [id number] Thursday, 2015 History of Encounters Visit Date Visit Type Provider 04/03/2018 Office visit OSCAR RODARTE 01/25/2018 Office [...] 12/29/2013 Office visit Oscar Jonas MD 12/26/2013 [facility] Oscar Jonas MD 06/19/2013 [facility] Oscar Jonas MD 06/09/2013 Office visit Oscar Jonas MD 06/07/2013 [facility] Oscar Jonas MD 06/06/2013 [facility] Oscar Jonas MD
--- OUTSIDE RECORDS SUMMARY | 2018-06-05 10:34 | XMS REPORT ---
Author Author Mitch Gresham Organization [facility] Address [address] [place], [place] [id number] Care Team Providers Care Tailercpa Name Role Phone Mp Mitch PCP OSCAR [...] sanofi pasteur PMC Fluzone > 12 Years [id number] Intramuscular Right Deltoid 01/12/2015 10/23/2014 141 Pneumococcal 01/11/2015 Pfizer, Inc. PFR Prevnar [id number] Intramuscular Left Deltoid 01/12/2015 03/19/2014 100 X 01/11/2015 Pfizer, Inc. PFR Prevnar [id number] Intramuscular Left Deltoid 01/12/2015 03/19/2014 100 History [...] to multiple sites Mar 04 2018 1:57PM Payers Insurance Name Company Name Plan Name Plan Number Policy Number Policy Group Number Start Date [employer] [place] [id number] Thursday, 2015 [employer] [place] [id number] N/A [employer] [place] [id number] N/A [employer] [place] [id number] N/A History of Encounters Visit Date Visit [...] Laboratory OSCAR GODWIN PA 01/01/2017 Laboratory OSCAR GDOWIN PA 12/18/2016 Laboratory OSCAR GODWIN PA 12/05/2016 Laboratory OSCAR GODWIN PA 11/21/2016 Laboratory OSCAR GODWIN PA 11/06/2016 Laboratory OSCAR GODWIN PA 10/23/2016 Laboratory OSCAR GODWIN PA 10/09/2016 Laboratory OSCAR GODWIN PA 09/25/2016 Laboratory OSCAR GODWIN PA 07/06/2015 Office visit OSCAR RODARTE 01/22/2015 [facility] Oscar Jonas MD 01/11/2015 Office visit Oscar Jonas MD 01/14/2014 Nurse visit Oscar Jonas MD 01/12/2014 Office visit Oscar Jonas MD 01/05/2014 Office visit Oscar Jonas MD 12/29/2013 Office visit Oscar Jonas MD 12/26/2013 [facility] Oscar Jonas MD 06/19/2013 [facility] Oscar Jonas MD 06/09/2013 Office visit Oscar Jonas MD 06/07/2013 [facility] Oscar Jonas MD 06/06/2013 [facility] Oscar Jonas MD
--- OUTSIDE RECORDS SUMMARY | 2018-06-05 10:34 | XMS REPORT ---
Author Author OSCAR GODWIN [facility] Address [address] [place], [place] [address] Care Team Providers Care Template Worker Name Role Phone OSCAR GODWIN PCP [...] 2 times a day for 10 days Name Start Date Expiration Date SIG [...] sanofi pasteur PMC Fluzone > 12 Years [id number] Intramuscular Right Deltoid 01/12/2015 10/23/2014 141 Pneumococcal 01/11/2015 Pfizer, Inc. PFR Prevnar [id number] Intramuscular Left Deltoid 01/12/2015 03/19/2014 100 X 01/11/2015 Pfizer, Inc. PFR Prevnar [id number] Intramuscular Left Deltoid 01/12/2015 03/19/2014 100 History [...] Group Number Start Date [employer] [place] [id number] N/A [employer] [place] [id number] N/A [employer] [place] [id number] N/A [employer] [place] [id number] N/A [employer] [place] [id number] Thursday, 2015 History of Encounters Visit Date [...] 11/06/2016 Laboratory OSCAR GODWIN PA 10/23/2016 Laboratory OSACR GODWIN PA 10/09/2016 Laboratory OSCAR GODWIN PA 09/25/2016 Laboratory OSCAR GODWIN PA 07/06/2015 Office visit OSCAR GODWIN PA 01/22/2015 [facility] Oscar Jonas MD 01/11/2015 Office visit Oscar Jonas MD 01/14/2014 Nurse visit Oscar Jonas MD 01/12/2014 Office visit Oscar Jonas MD 01/05/2014 Office visit Oscar Jonas MD 12/29/2013 Office visit Oscar Jonas MD 12/26/2013 [facility] Oscar Jonas MD 06/19/2013 [facility] Oscar Jonas MD 06/09/2013 Office visit Oscar Jonas MD 06/07/2013 [facility] Oscar Jonas MD 06/06/2013 [facility] Oscar Jonas MD
[2018-06-05] MEDS ORDERED: NS IV 500 ML 500 ML IV ONE (10:42)
--- OUTSIDE RECORDS SUMMARY | 2018-06-05 10:45 | XMS REPORT | Continuity of Care Document ---
Demographics x Preferred Language Unknown Marital Status Unknown Baptism Affiliation Unknown Race Unknown Ethnic Group Unknown Author Author [facility] Organization [facility] Address Unknown Phone Unavailable Allergies Active Description Code Type Severity Reaction Onset Reported/Identified Relationship to Patient Clinical Status Yes PCN (penicillin) 35534370 CLASS N/A N/A Yes PCN (penicillin) [id number] CLASS N/A UNKNOWN REACTION WAS 5 YRS OLD Yes penicillin NKMA N/A [id number] 10/08/2013 Yes penicillin NKMA N/A [id number] 10/08/2013 Yes No Known Drug Allergies [id number] Drug Allergy Unknown N/A 11/08/2017 Yes Penicillins [id number] Drug Allergy Unknown N/A 11/08/2017 Medications Medication [...] mg, IV Push, q10min, PRN: Pain HYDROmorphone(Dilaudid [employer] 1 mg/mL 30 mg) 30 mL 10/10/2013 10/10/2013 IV 30 mg [employer], IV, Stop: 12/09/13 0:10:00 CDT HYDROmorphone(Dilaudid) 201310/13/2013 IV Push 0.5 - 1.0mg, IV Push, q2hr, PRN: Pain enoxaparin(enoxaparin) 0.4 mL 10/1010/13/2013 SubCutaneous 40 mg 40 mg, SubCutaneous, Daily metoclopramide(Reglan) 2 mL 201310/13/2013 IV Push 10 mg 10 mg, IV Push, q6hr, PRN: Nausea or Vomiting HYDROcodone-acetaminophen([place] 5 mg-325 mg oral tablet) 10/10/2013 10/13/2013 [...] Oral 800 mg 800 mg, Oral, BIDWM HYDROcodone-acetaminophen([place] 5 mg-325 mg oral tablet) 10/10/2013 05/17/2016 [...] CHEMOTHERAP BILL GREGORY MD, Ot Z79.899 OTHER [employer]AND[employer]ER (CURRENT) DRUG THERAPY BILL GREGORY MD, Ot [...] 12/18/2017 BILL GREGORY MD, Ot Z79.899 OTHER CANDY SP[employer]ER (CURRENT) DRUG THERAPY 12/18/2017 BILL GREGORY MD, Ot Z93.3 COLOSTOMY STATUS 01/22/2018 BILL GREGORY MD, Ot C20 MALIGNANT NEOPLASM OF RECTUM 01/22/2018 BILL GREGORY MD, Ot 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 01/22/2018 BILL GREGORY MD, Ot 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 01/22/2018 BILL GREGORY MD, Ot C79.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 01/22/2018 BILL GREGORY MD Ot I10 ESSENTIAL (PRIMARY) HYPERTENSION 01/22/2018 BILL GREGORY MD, Ot M25.552 PAIN IN LEFT HIP 01/22/2018 BILL GREGORY MD Ot Z51.11 ENCOUNTER FOR ANTINEOPLASTIC CHEMOTHERAP 01/22/2018 BILL GREGORY MD Ot Z79.899 OTHER [employer]ER (CURRENT) DRUG THERAPY 01/22/2018 BILL GREGORY MD, Ot Z93.3 COLOSTOMY STATUS 02/26/2018 XUN MD, QUIROGA-JOSE Ot C20 MALIGNANT NEOPLASM OF RECTUM 02/26/2018 BILL GREGORY MD Ot 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 [...] 02/26/2018 BILL GREGORY MD, Ot Z79.899 OTHER DETENTION (CURRENT) DRUG THERAPY 02/26/2018 BILL GREGORY MD, Ot Z93.3 COLOSTOMY STATUS 03/04/2018 VERN BLOCK MD, Ot I10 ESSENTIAL (PRIMARY) HYPERTENSION 03/04/2018 VERN BLOCK MD, Ot N39.0 URINARY TRACT INFECTION, SITE NOT SPECIF 03/04/2018 VERN BLOCK MD, Ot R11.2 NAUSEA WITH VOMITING, UNSPECIFIED 03/04/2018 VERN BLOCK MD, Ot Z85.038 PERSONAL HISTORY OF MALIGNANT NEOPLASM O 03/04/2018 VERN BLOCK MD, Ot Z85.048 PRSNL HX OF MALIG NEOPLM OF RECTUM, RECT 03/04/2018 VERN BLOCK MD, Ot Z85.51 PERSONAL HISTORY OF MALIGNANT NEOPLASM O 03/04/2018 VERN BLOCK MD, Ot Z87.448 PERSONAL HISTORY OF OTHER DISEASES OF UR 03/04/2018 VERN BLOCK MD, Ot Z88.0 ALLERGY STATUS TO PENICILLIN 03/04/2018 VERN BLOCK MD, Ot Z90.49 ACQUIRED ABSENCE OF OTHER SPECIFIED PART 03/04/2018 VERN BLOCK MD, Ot Z90.710 ACQUIRED ABSENCE OF BOTH CERVIX AND UTER 03/04/2018 VERN BLOCK MD, Ot Z92.21 PERSONAL HISTORY OF ANTINEOPLASTIC CHEMO 03/04/2018 VERN BLOCK MD, Ot Z96.0 PRESENCE OF UROGENITAL IMPLANTS 03/04/2018 BILL GREGORY MD, Ot C20 MALIGNANT [...] INTRA-ABDOMINAL AND PELVIC SWELLIN 03/04/2018 BILL GREGORY MD Ot C20 MALIGNANT NEOPLASM OF RECTUM 03/04/2018 [...] 03/04/2018 BILL GREGORY MD, Ot Z79.899 OTHER [employer]ANDY SPREADER (CURRENT) DRUG THERAPY 03/04/2018 BILL GREGORY MD, Ot Z93.3 COLOSTOMY STATUS 03/04/2018 ANÍBAL GRESHAM MD Ot C18.9 MALIGNANT NEOPLASM OF COLON, UNSPECIFIED 03/04/2018 ANÍBAL GRESHAM MD, Ot 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 03/04/2018 ANÍBAL GRESHAM MD, Ot N28.9 DISORDER OF KIDNEY AND URETER, UNSPECIFI 03/04/2018 ANÍBAL GRESHAM MD, Ot R35.0 FREQUENCY OF MICTURITION 03/06/2018 VERN BLOCK MD, Ot I10 ESSENTIAL (PRIMARY) HYPERTENSION 03/06/2018 VERN BLOCK MD, Ot N39.0 URINARY TRACT INFECTION, SITE NOT SPECIF 03/06/2018 VERN BLOCK MD, Ot R11.2 NAUSEA WITH VOMITING, UNSPECIFIED 03/06/2018 VERN BLOCK MD, Ot Z85.038 PERSONAL HISTORY OF MALIGNANT NEOPLASM O 03/06/2018 VERN BLOCK MD, Ot Z85.048 PRSNL HX OF MALIG NEOPLM OF RECTUM, RECT 03/06/2018 VERN BLOCK MD, Ot Z85.51 PERSONAL HISTORY OF MALIGNANT NEOPLASM O 03/06/2018 VERN BLOCK MD, Ot Z87.448 PERSONAL HISTORY OF OTHER DISEASES OF UR 03/06/2018 VERN BLOCK MD, Ot Z88.0 ALLERGY STATUS TO PENICILLIN 03/06/2018 VERN BLOCK MD, Ot Z90.49 ACQUIRED ABSENCE OF OTHER SPECIFIED PART 03/06/2018 VERN BLOCK MD, Ot Z90.710 ACQUIRED ABSENCE OF BOTH CERVIX AND UTER 03/06/2018 VERN BLOCK MD, Ot Z92.21 PERSONAL HISTORY OF ANTINEOPLASTIC CHEMO 03/06/2018 VERN BLOCK MD, Ot Z96.0 PRESENCE OF UROGENITAL IMPLANTS 03/12/2018 BILL GREGORY MD, Ot C20 MALIGNANT NEOPLASM OF RECTUM 03/12/2018 BILL GREGORY MD, Ot M25.552 PAIN IN LEFT HIP 03/12/2018 BILL GREGORY MD, Ot M48.061 SPINAL STENOSIS, LUMBAR REGION WITHOUT N 03/12/2018 BILL GREGORY MD, Ot M48.07 SPINAL STENOSIS, LUMBOSACRAL REGION 03/12/2018 BILL GREGORY MD Ot M99.73 CONN TISS AND DISC STENOS OF INTVRT FORA 03/12/2018 BILL GREGORY MD, Ot N28.89 OTHER SPECIFIED DISORDERS OF KIDNEY AND 03/12/2018 BILL GREGORY MD, Ot R19.09 OTHER INTRA-ABDOMINAL AND PELVIC SWELLIN 03/12/2018 BILL GREGORY MD, Ot C20 MALIGNANT NEOPLASM OF RECTUM 03/12/2018 BILL GREGORY MD, Ot C77.5 SECONDARY AND UNSP MALIGNANT NEOPLASM OF 03/12/2018 BILL GREGORY MD, Ot 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 03/12/2018 BILL GREGORY MD, Ot 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 03/12/2018 BILL GREGORY MD, Ot 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 03/12/2018 BILL GREGORY MD, Ot C79.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 03/12/2018 BILL GREGORY MD, Ot D64.9 ANEMIA, UNSPECIFIED 03/12/2018 BILL GREGORY MD, Ot D72.819 DECREASED WHITE BLOOD CELL COUNT, UNSPEC 03/12/2018 BILL GREGORY MD, Ot I10 ESSENTIAL (PRIMARY) HYPERTENSION 03/12/2018 BILL GREGORY MD, Ot M25.552 PAIN IN LEFT HIP 03/12/2018 BILL GREGORY MD, Ot M54.5 LOW BACK PAIN 03/12/2018 BILL GREGORY MD, Ot M79.605 PAIN IN LEFT LEG 03/12/2018 BILL GREGORY MD, Ot N39.0 URINARY TRACT INFECTION, SITE NOT SPECIF 03/12/2018 BILL GREGORY MD, Ot Z51.11 ENCOUNTER FOR ANTINEOPLASTIC CHEMOTHERAP 03/12/2018 BILL GREGORY MD, Ot Z79.899 OTHER CANDY SPREADER (CURRENT) DRUG THERAPY 03/12/2018 BILL GREGORY MD, Ot Z93.3 COLOSTOMY STATUS 03/12/2018 ANÍBAL GRESHAM MD Ot C18.9 MALIGNANT NEOPLASM OF COLON, UNSPECIFIED 03/12/2018 ANÍBAL GRESHAM MD Ot 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 03/12/2018 ANÍBAL GRESHAM MD Ot N28.9 DISORDER OF KIDNEY AND URETER, UNSPECIFI 03/12/2018 ANÍBAL GRESHAM MD Ot R35.0 FREQUENCY OF MICTURITION 03/15/2018 EMANUEL CUNHA MD, Ot 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, 03/15/2018 EMANUEL CUNHA MD, Ot 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 03/15/2018 EMANUEL CUNHA MD, Ot 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 03/15/2018 EMANUEL CUNHA MD, Ot I10 ESSENTIAL (PRIMARY) HYPERTENSION 03/15/2018 EMANUEL CUNHA MD Ot N19 UNSPECIFIED KIDNEY FAILURE 03/15/2018 EMANUEL CUNHA MD Ot R53.1 WEAKNESS 03/15/2018 EMANUEL CUNHA MD Ot Z87.440 PERSONAL HISTORY OF URINARY (TRACT) INFE 03/15/2018 EMANUEL CUNHA MD, Ot Z87.448 PERSONAL HISTORY OF OTHER DISEASES OF UR 03/15/2018 EMANUEL CUNHA MD, Ot Z88.0 ALLERGY STATUS TO PENICILLIN 03/15/2018 EMANUEL CUNHA MD, Ot Z90.49 ACQUIRED ABSENCE OF OTHER SPECIFIED PART 03/15/2018 EMANUEL CUNHA MD, Ot Z90.710 ACQUIRED ABSENCE OF BOTH CERVIX AND UTER 03/15/2018 EMANUEL CUNHA MD, Ot Z92.21 PERSONAL HISTORY OF ANTINEOPLASTIC CHEMO 03/15/2018 EMANUEL CUNHA MD, Ot Z93.0 TRACHEOSTOMY STATUS 03/15/2018 EMANUEL CUNHA MD, Ot Z96.0 PRESENCE OF UROGENITAL IMPLANTS 03/18/2018 BILL GREGORY MD Ot C20 MALIGNANT NEOPLASM OF RECTUM 03/18/2018 BILL GREGORY MD, Ot C77.5 SECONDARY AND UNSP MALIGNANT NEOPLASM OF 03/18/2018 BILL GREGORY MD, Ot 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 03/18/2018 BILL GREGORY MD, Ot 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 03/18/2018 BILL GREGORY MD, Ot 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 03/18/2018 BILL GREGORY MD, Ot C79.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 03/18/2018 BILL GREGORY MD, Ot D64.9 ANEMIA, UNSPECIFIED 03/18/2018 BILL GREGORY MD, Ot D72.819 DECREASED WHITE BLOOD CELL COUNT, UNSPEC 03/18/2018 BILL GREGORY MD, Ot I10 ESSENTIAL (PRIMARY) HYPERTENSION 03/18/2018 BILL GREGORY MD, Ot M25.552 PAIN IN LEFT HIP 03/18/2018 BILL GREGORY MD, Ot M54.5 LOW BACK PAIN 03/18/2018 BILL GREGORY MD, Ot M79.605 PAIN IN LEFT LEG 03/18/2018 BILL GREGORY MD, Ot N39.0 URINARY TRACT INFECTION, SITE NOT SPECIF 03/18/2018 BILL GREGORY MD, Ot Z51.11 ENCOUNTER FOR ANTINEOPLASTIC CHEMOTHERAP 03/18/2018 BILL GREGORY MD, Ot Z79.899 OTHER CANDY SPREADER (CURRENT) DRUG THERAPY 03/18/2018 BILL GREGORY MD, Ot Z93.3 COLOSTOMY STATUS 03/18/2018 EMANUEL CUNHA MD Ot 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, 03/18/2018 EMANUEL CUNHA MD, Ot 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 03/18/2018 EMANUEL CUNHA MD, Ot 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 03/18/2018 EMANUEL CUNHA MD, Ot I10 ESSENTIAL (PRIMARY) HYPERTENSION 03/18/2018 EMANUEL CUNHA MD Ot N19 UNSPECIFIED KIDNEY FAILURE 03/18/2018 EMANUEL CUNHA MD Ot R53.1 WEAKNESS 03/18/2018 EMANUEL CUNHA MD, Ot Z87.440 PERSONAL HISTORY OF URINARY (TRACT) INFE 03/18/2018 EMANUEL CUNHA MD, Ot Z87.448 PERSONAL HISTORY OF OTHER DISEASES OF UR 03/18/2018 EMANUEL CUNHA MD, Ot Z88.0 ALLERGY STATUS TO PENICILLIN 03/18/2018 EMANUEL CUNHA MD, Ot Z90.49 ACQUIRED ABSENCE OF OTHER SPECIFIED PART 03/18/2018 EMANUEL CUNHA MD, Ot Z90.710 ACQUIRED ABSENCE OF BOTH CERVIX AND UTER 03/18/2018 EMANUEL CUNHA MD, Ot Z92.21 PERSONAL HISTORY OF ANTINEOPLASTIC CHEMO 03/18/2018 EMANUEL CUNHA MD, Ot Z93.0 TRACHEOSTOMY STATUS 03/18/2018 EMANUEL CUNHA MD, Ot Z96.0 PRESENCE OF UROGENITAL IMPLANTS 03/21/2018 BILL GREGORY MD Ot C20 MALIGNANT NEOPLASM OF RECTUM 03/21/2018 BILL GREGORY MD, Ot C77.5 SECONDARY AND UNSP MALIGNANT NEOPLASM OF 03/21/2018 BILL GREGORY MD, Ot 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 03/21/2018 BILL GREGORY MD, Ot 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 03/21/2018 BILL GREGORY MD, Ot 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 03/21/2018 BILL GREGORY MD, Ot C79.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 03/21/2018 BILL GREGORY MD, Ot D64.9 ANEMIA, UNSPECIFIED 03/21/2018 BILL GREGORY MD, Ot D72.819 DECREASED WHITE BLOOD CELL COUNT, UNSPEC 03/21/2018 BILL GREGORY MD Ot I10 ESSENTIAL (PRIMARY) HYPERTENSION 03/21/2018 BILL GREGORY MD, Ot M25.552 PAIN IN LEFT HIP 03/21/2018 BILL GREGORY MD, Ot M54.5 LOW BACK PAIN 03/21/2018 BILL GREGORY MD, Ot M79.605 PAIN IN LEFT LEG 03/21/2018 BILL GREGORY MD, Ot N39.0 URINARY TRACT INFECTION, SITE NOT SPECIF 03/21/2018 BILL GREGORY MD, Ot Z51.11 ENCOUNTER FOR ANTINEOPLASTIC CHEMOTHERAP 03/21/2018 BILL GREGORY MD, Ot Z79.899 OTHER CANDY SPREADER (CURRENT) DRUG THERAPY 03/21/2018 BILL GREGORY MD, Ot Z93.3 COLOSTOMY STATUS 04/15/2018 P N179 Acute kidney failure, unspecified 04/16/2018 BILL GREGORY MD Ot C20 MALIGNANT NEOPLASM OF RECTUM 04/16/2018 BILL GREGORY MD, Ot C77.5 SECONDARY AND UNSP MALIGNANT NEOPLASM OF 04/16/2018 BILL GREGORY MD, Ot 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 04/16/2018 BILL GREGORY MD, Ot 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 04/16/2018 BILL GREGORY MD, Ot 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 04/16/2018 BILL GREGORY MD, Ot C79.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 04/16/2018 BILL GREGORY MD, Ot D64.9 ANEMIA, UNSPECIFIED 04/16/2018 BILL GREGORY MD, Ot D72.819 DECREASED WHITE BLOOD CELL COUNT, UNSPEC 04/16/2018 BILL GREGORY MD, Ot I10 ESSENTIAL (PRIMARY) HYPERTENSION 04/16/2018 BILL GREGORY MD, Ot M25.552 PAIN IN LEFT HIP 04/16/2018 BILL GREGORY MD, Ot M54.5 LOW BACK PAIN 04/16/2018 BILL GREGORY MD, Ot M79.605 PAIN IN LEFT LEG 04/16/2018 BILL GREGORY MD, Ot N39.0 URINARY TRACT INFECTION, SITE NOT SPECIF 04/16/2018 BILL GREGORY MD, Ot Z51.11 ENCOUNTER FOR ANTINEOPLASTIC CHEMOTHERAP 04/16/2018 BILL GREGORY MD, Ot Z79.899 OTHER DETENTION (CURRENT) DRUG THERAPY 04/16/2018 BILL GREGORY MD, Ot Z93.3 COLOSTOMY STATUS 04/16/2018 BILL GREGORY MD, Ot C20 MALIGNANT NEOPLASM OF RECTUM 04/16/2018 BILL GREGORY MD, Ot C77.5 SECONDARY AND UNSP MALIGNANT NEOPLASM OF 04/16/2018 BILL GREGORY MD, Ot 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 04/16/2018 BILL GREGORY MD, Ot 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 04/16/2018 BILL GREGORY MD, Ot 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 04/16/2018 BILL GREGORY MD, Ot C79.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 04/16/2018 BILL GREGORY MD, Ot D64.9 ANEMIA, UNSPECIFIED 04/16/2018 BILL GREGORY MD, Ot D72.819 DECREASED WHITE BLOOD CELL COUNT, UNSPEC 04/16/2018 BILL GREGORY MD Ot I10 ESSENTIAL (PRIMARY) HYPERTENSION 04/16/2018 BILL GREGORY MD, Ot M25.552 PAIN IN LEFT HIP 04/16/2018 BILL GREGORY MD, Ot M54.5 LOW BACK PAIN 04/16/2018 BILL GREGORY MD, Ot M79.605 PAIN IN LEFT LEG 04/16/2018 BILL GREGORY MD, Ot N39.0 URINARY TRACT INFECTION, SITE NOT SPECIF 04/16/2018 BILL GREGORY MD, Ot Z51.11 ENCOUNTER FOR ANTINEOPLASTIC CHEMOTHERAP 04/16/2018 BILL GREGORY MD, Ot Z79.899 OTHER CANDY SPREADER (CURRENT) DRUG THERAPY 04/16/2018 BILL GREGORY MD, Ot Z93.3 COLOSTOMY STATUS 04/25/2018 BILL GREGORY MD, Ot C20 MALIGNANT NEOPLASM OF RECTUM 04/25/2018 BILL GREGORY MD, Ot C77.5 SECONDARY AND UNSP MALIGNANT NEOPLASM OF 04/25/2018 BILL GREGORY MD, Ot 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 04/25/2018 BILL GREGORY MD, Ot 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 04/25/2018 BILL GREGORY MD, Ot 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 04/25/2018 BILL GREGORY MD, Ot C79.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 04/25/2018 BILL GREGORY MD, Ot D64.9 ANEMIA, UNSPECIFIED 04/25/2018 BILL GREGORY MD, Ot D72.819 DECREASED WHITE BLOOD CELL COUNT, UNSPEC 04/25/2018 BILL GREGORY MD, Ot I10 ESSENTIAL (PRIMARY) HYPERTENSION 04/25/2018 BILL GREGORY MD, Ot M25.552 PAIN IN LEFT HIP 04/25/2018 BILL GREGORY MD, Ot M54.5 LOW BACK PAIN 04/25/2018 BILL GREGORY MD, Ot M79.605 PAIN IN LEFT LEG 04/25/2018 BILL GREGORY MD, Ot N39.0 URINARY TRACT INFECTION, SITE NOT SPECIF 04/25/2018 BILL GREGORY MD, Ot Z51.11 ENCOUNTER FOR ANTINEOPLASTIC CHEMOTHERAP 04/25/2018 BILL GREGORY MD, Ot Z79.899 OTHER DETENTION (CURRENT) DRUG THERAPY 04/25/2018 BILL GREGORY MD, Ot Z93.3 COLOSTOMY STATUS 05/10/2018 BILL GREGORY MD Ot C20 MALIGNANT NEOPLASM OF RECTUM 05/10/2018 BILL GREGORY MD, Ot C77.5 SECONDARY AND UNSP MALIGNANT NEOPLASM OF 05/10/2018 BILL GREGORY MD, Ot 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 05/10/2018 BILL GREGORY MD, Ot 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 05/10/2018 BILL GREGORY MD, Ot 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 05/10/2018 BILL GREGORY MD, Ot C79.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 05/10/2018 BILL GREGORY MD, Ot D64.9 ANEMIA, UNSPECIFIED 05/10/2018 BILL GREGORY MD, Ot D72.819 DECREASED WHITE BLOOD CELL COUNT, UNSPEC 05/10/2018 BILL GREGORY MD, Ot I10 ESSENTIAL (PRIMARY) HYPERTENSION 05/10/2018 BILL GREGORY MD, Ot M25.552 PAIN IN LEFT HIP 05/10/2018 BILL GREGORY MD, Ot M54.5 LOW BACK PAIN 05/10/2018 BILL GREGORY MD, Ot M79.605 PAIN IN LEFT LEG 05/10/2018 BILL GREGORY MD, Ot N39.0 URINARY TRACT INFECTION, SITE NOT SPECIF 05/10/2018 BILL GREGORY MD, Ot Z79.899 OTHER DETENTION (CURRENT) DRUG THERAPY 05/10/2018 BILL GREGORY MD, Ot Z93.3 COLOSTOMY STATUS Procedures Code Description [place] [id number] Office or other outpatient visit for the [...] culture - 02/26/18 14:10 Bacterial urine culture [id number] NRG COLONY COUNT . NRG FTX;REPORTABLE WITH [...] culture - 03/04/18 15:20 Bacterial urine culture [id number] NRG COLONY COUNT >100,000/ML NRG FTX;REPORTABLE RML REPORTED ID 03/05/18 14:05 NRG FREE TEXT ENTRY 2 SUSCEPTIBILITY REPORTED 03/07/18 08:05 NR RML Sensitivity Panel - 03/04/18 15:20 Oxacillin [...] test by minimum inhibitory concentration > NRG Blood lactic acid measurement (moles/volume) - 03/12/18 12:28 Blood lactic acid measurement (moles/volume) 0.87 mmol/L 0.50-2.00 Bacterial blood culture - 03/12/18 12:28 FREE TEXT EXTERNAL RML REPORTED ID 03/14/18 11:05 NRG QUANTITY OF GROWTH Isolated NRG Bacterial blood culture [id number] NR FREE TEXT ENTRY 3 RML REPORTED SENSITIVITY 03/15/18 09:05 NRG RML SENSITIVITY MAIN LAB - 03/12/18 12:28 Oxacillin susceptibility test by minimum inhibitory concentration > NRG Clindamycin susceptibility test by minimum inhibitory concentration R NRG Erythromycin susceptibility test by minimum inhibitory concentration > NRG Vancomycin susceptibility test by minimum inhibitory concentration 1 NRG Levofloxacin susceptibility test by minimum inhibitory concentration > NRG Rifampin susceptibility test by minimum inhibitory concentration <= NRG Cefazolin susceptibility test by minimum inhibitory concentration R NRG Penicillin G susceptibility test by minimum inhibitory concentration > NRG Moxifloxacin susceptibility test by minimum inhibitory concentration R NRG Minocycline susc ILIA <= NRG Complete blood count (CBC) with automated white blood cell (WBC) differential - 03/12/18 13:28 Blood leukocytes automated count (number/volume) 3.1 10*3/uL 4.3-11.0 Blood erythrocytes automated count (number/volume) 2.95 10*6/uL 4.35-5.85 Venous blood hemoglobin measurement (mass/volume) 8.5 g/dL 11.5-16.0 Blood hematocrit (volume fraction) 27 % 35-52 Automated erythrocyte mean corpuscular volume 92 [foz_us] 80-99 Automated erythrocyte mean corpuscular hemoglobin (mass per erythrocyte) 29 pg 25-34 Automated erythrocyte mean corpuscular hemoglobin concentration measurement ( mass/volume) 31 g/dL 32-36 Automated erythrocyte distribution width ratio 18.3 % 10.0-14.5 Automated blood platelet count (count/volume) 280 10*3/uL 130-400 Automated blood platelet mean volume measurement 9.2 [foz_us] 7.4-10.4 Automated blood neutrophils/100 leukocytes 46 % 42-75 Automated blood lymphocytes/100 leukocytes 23 % 12-44 Blood monocytes/100 leukocytes 28 % 0-12 Automated blood eosinophils/100 leukocytes 2 % 0-10 Automated blood basophils/100 leukocytes 1 % 0-10 Blood neutrophils automated count (number/volume) 1.4 10*3 1.8-7.8 Blood lymphocytes automated count (number/volume) 0.7 10*3 1.0-4.0 Blood monocytes automated count (number/volume) 0.9 10*3 0.0-1.0 Automated eosinophil count 0.1 10*3/uL 0.0-0.3 Automated blood basophil count (count/volume) 0.0 10*3/uL 0.0-0.1 Comprehensive metabolic panel - 03/12/18 13:28 Serum or plasma sodium measurement (moles/volume) 141 mmol/L 135-145 Serum or plasma potassium measurement (moles/volume) 6.9 mmol/L 3.6-5.0 Serum or plasma chloride measurement (moles/volume) 107 mmol/L 98-107 Carbon dioxide 13 mmol/L 21-32 Serum or plasma anion gap determination (moles/volume) 21 mmol/L 5-14 Serum or plasma urea nitrogen measurement (mass/volume) 100 mg/dL 7-18 Serum or plasma creatinine measurement (mass/volume) 11.91 mg/dL 0.60-1.30 Serum or plasma urea nitrogen/creatinine mass ratio 8 NRG Serum or plasma creatinine measurement with calculation of estimated glomerular filtration rate 3 NRG Serum or plasma glucose measurement (mass/volume) 103 mg/dL 70-105 Serum or plasma calcium measurement (mass/volume) 9.9 mg/dL 8.5-10.1 Serum or plasma total bilirubin measurement (mass/volume) 0.4 mg/dL 0.1-1.0 Serum or plasma alkaline phosphatase measurement (enzymatic activity/volume) 79 U/L 40-136 Serum or plasma aspartate aminotransferase measurement (enzymatic activity/ volume) 12 U/L 5-34 Serum or plasma alanine aminotransferase measurement (enzymatic activity/volume ) 8 U/L 0-55 Serum or plasma protein measurement (mass/volume) 6.9 g/dL 6.4-8.2 Serum or plasma albumin measurement (mass/volume) 3.7 g/dL 3.2-4.5 CALCIUM CORRECTED 10.1 mg/dL 8.5-10.1 Blood manual differential performed detection - 03/12/18 13:28 Blood monocytes/100 leukocytes 22 % NRG Manual blood segmented neutrophils/100 leukocytes 52 % NRG Blood band neutrophils/100 leukocytes 5 % NRG Manual blood lymphocytes/100 leukocytes 21 % NRG Blood polychromasia detection by light microscopy SLIGHT NRG Blood anisocytosis detection by light microscopy MARKED NRG Complete urinalysis with reflex to culture - 03/12/18 13:57 Urine color determination YELLOW NRG Urine clarity determination CLEAR NRG Urine pH measurement by test strip 6 5-9 Specific gravity of urine by test strip 1.015 1.016- 1.022 Urine protein assay by test strip, semi-quantitative 4+ NEGATIVE Urine glucose detection by automated test strip NEGATIVE NEGATIVE Erythrocytes detection in urine sediment by light microscopy 5+ NEGATIVE Urine ketones detection by automated test strip 1+ NEGATIVE Urine nitrite detection by test strip NEGATIVE NEGATIVE Urine total bilirubin detection by test [...] detection in urine sediment by light microscopy 5-10 NRG Crystals detection in urine sediment by light microscopy PRESENT NRG Casts detection in urine sediment by light microscopy NONE NRG Mucus detection in urine sediment by light microscopy MODERATE NRG Complete urinalysis with reflex to culture YES NRG Amorphous sediment detection in urine sediment by light microscopy MOD ROSA URATES NRG Bacterial urine culture - 03/12/18 13:57 Bacterial urine culture [id number] NRG COLONY COUNT >100,000/ML NRG FTX;REPORTABLE PLUS, NRG FREE TEXT ENTRY 2 20,000 CFU/ML OF GRAM POSITIVE MIXED NRG FREE TEXT ENTRY 3 [facility] Sensitivity Panel - 03/12/18 13:57 Oxacillin susceptibility test by minimum inhibitory concentration > NRG Vancomycin susceptibility test by minimum inhibitory concentration 2 NRG Levofloxacin susceptibility test by minimum inhibitory concentration > NRG Rifampin susceptibility test by minimum inhibitory concentration <= NRG Cefazolin susceptibility test by minimum inhibitory concentration R NRG Nitrofurantoin susceptibility test by minimum inhibitory concentration <= NRG Penicillin G susceptibility test by minimum inhibitory concentration 1 NRG Bacterial blood culture - 03/12/18 14:22 FREE TEXT EXTERNAL RML REPORTED ID 03/14/18 11:05 NRG QUANTITY OF GROWTH Isolated NRG Bacterial blood culture [id number] NR FREE TEXT ENTRY 2 REFER TO PREV. CULTURE FOR SUSCEPBILITY NR Whole blood basic metabolic panel - 03/12/18 17:26 Serum or plasma sodium measurement (moles/volume) 141 mmol/L 135-145 Serum or plasma potassium measurement (moles/volume) 7.5 mmol/L 3.6-5.0 Serum or plasma chloride measurement (moles/volume) 112 mmol/L 98-107 Carbon dioxide 13 mmol/L 21-32 Serum or plasma anion gap determination (moles/volume) 16 mmol/L 5-14 Serum or plasma urea nitrogen measurement (mass/volume) 96 mg/dL 7-18 Serum or plasma creatinine measurement (mass/volume) 11.37 mg/dL 0.60-1.30 Serum or plasma urea nitrogen/creatinine mass ratio 8 NRG Serum or plasma creatinine measurement with calculation of estimated glomerular filtration rate 3 NRG Serum or plasma glucose measurement (mass/volume) 92 mg/dL 70-105 Serum or plasma calcium measurement (mass/volume) 8.7 mg/dL 8.5-10.1 Encounters ACCT No. Visit Date/Time Discharge Status Pt. Type Provider Facility Loc./Unit Complaint [id number] 06/18/2013 14:31:00 06/18/2013 14:31:00 DIS Outpatient SANIYA GALVAN [facility] [id number] 05/17/2016 13:25:00 05/17/2016 23:59:00 DIS Outpatient Jordon De Leon [facility] Surg TCPA RECURRENT RECTAL MASSES [id number] 06/18/2013 14:33:50 ACT Document Registration [id number] 01/06/2015 09:37:24 Document Registration [id number] 01/06/2015 09:19:22 Document Registration [id number] 09/16/2014 09:28:00 Document Registration [id number] 05/02/2018 15:27:58 05/02/2018 23:59:59 CLS Outpatient Aníbal Gresham [id number] 05/02/2018 10:18:51 05/02/2018 23:59:59 CLS Outpatient JAYCEE GODWIN [id number] 04/19/2018 10:45:28 04/19/2018 23:59:59 CLS Outpatient Aníbal Gresham [id number] 04/03/2018 10:10:57 04/03/2018 23:59:59 CLS Outpatient JAYCEE GODWIN [id number] 01/25/2018 14:34:14 01/25/2018 23:59:59 CLS Outpatient Aníbal Gresham [id number] 12/31/2017 15:24:47 12/31/2017 23:59:59 CLS Outpatient TATO, JAYCEE Nassar [id number] 12/20/2017 10:24:58 12/20/2017 23:59:59 CLS Outpatient Aníbal Gresham [id number] 12/10/2017 16:50:06 12/10/2017 23:59:59 CLS Outpatient Aníbal Gresham [id number] 11/23/2017 11:11:08 11/23/2017 23:59:59 CLS Outpatient TATO, JAYCEE Nassar [id number] 07/30/2017 09:52:17 07/30/2017 23:59:59 CLS Outpatient TATO, JAYCEE Nassar [id number] 07/16/2017 07:45:45 07/16/2017 23:59:59 CLS Outpatient TATO, JAYCEE Nassar [id number] 07/02/2017 07:39:24 07/02/2017 23:59:59 CLS Outpatient TATO, JAYCEE Nassar [id number] 05/24/2017 13:46:52 05/24/2017 23:59:59 CLS Outpatient TATO, JAYCEE Nassar [id number] 05/08/2017 08:09:08 05/08/2017 23:59:59 CLS Outpatient TATO, JAYCEE Nassar [id number] 04/23/2017 08:20:04 04/23/2017 23:59:59 CLS Outpatient TATO, JAYCEE Nassar [id number] 04/10/2017 15:47:08 04/10/2017 23:59:59 CLS Outpatient TATO, JAYCEE Nassar [id number] 03/26/2017 08:22:31 03/26/2017 23:59:59 CLS Outpatient TATO, JAYCEE Nassar [id number] 02/26/2017 08:04:03 02/26/2017 23:59:59 CLS Outpatient TATO, JAYCEE Nassar [id number] 02/12/2017 07:55:02 02/12/2017 23:59:59 CLS Outpatient TATO, JAYCEE Nassar [id number] 01/29/2017 08:14:10 01/29/2017 23:59:59 CLS Outpatient TATO, JAYCEE Nassar [id number] 01/01/2017 08:27:20 01/01/2017 23:59:59 CLS Outpatient TATO, JAYCEE Nassar [id number] 12/18/2016 08:03:03 12/18/2016 23:59:59 CLS Outpatient TATO, JAYCEE Nassar [id number] 12/05/2016 10:08:19 12/05/2016 23:59:59 CLS Outpatient TATO, JAYCEE Nassar [id number] 11/21/2016 08:12:46 11/21/2016 23:59:59 CLS Outpatient TATO, JAYCEE Nassar [id number] 11/08/2016 15:57:46 11/08/2016 23:59:59 CLS Outpatient TATO, JAYCEE Nassar [id number] 10/23/2016 08:27:18 10/23/2016 23:59:59 CLS Outpatient TATO, JAYCEE Nassar [id number] 10/09/2016 07:41:51 10/09/2016 23:59:59 CLS Outpatient TATO, JAYCEE Nassar [id number] 09/25/2016 10:24:26 09/25/2016 23:59:59 CLS Outpatient TATO, JAYCEE Nassar [id number] 02/08/2015 15:37:21 02/08/2015 23:59:59 CLS Outpatient Canaseraga, Jaycee [id number] 01/11/2015 15:06:53 01/11/2015 23:59:59 CLS Outpatient Canaseraga, Jaycee [id number] 01/14/2014 15:50:30 01/14/2014 23:59:59 CLS Outpatient Canaseraga, Jaycee [id number] 01/12/2014 14:39:24 01/12/2014 23:59:59 CLS Outpatient Canaseraga, Jaycee [id number] 01/05/2014 13:37:57 01/05/2014 23:59:59 CLS Outpatient Canaseraga, Jaycee [id number] 01/05/2014 10:33:00 01/05/2014 23:59:59 CLS Outpatient Canaseraga, Jaycee [id number] 12/29/2013 10:45:34 12/29/2013 23:59:59 CLS Outpatient Canaseraga, Jaycee [id number] 06/23/2013 16:43:13 06/23/2013 23:59:59 CLS Outpatient Canaseraga, Jaycee [id number] 06/18/2013 23:31:59 06/18/2013 23:59:59 CLS Outpatient Canaseraga, Jaycee [id number] 06/12/2013 07:41:26 06/12/2013 23:59:59 CLS Outpatient Canaseraga, Jaycee [id number] 06/09/2013 14:01:30 06/09/2013 23:59:59 CLS Outpatient Canaseraga, Jaycee [id number] 05/29/2018 13:54:00 05/29/2018 23:59:59 CLS Outpatient BILL GREGORY MD [facility] ONC [id number] 02/26/2018 10:36:00 03/18/2018 00:01:00 DIS Outpatient BILL GREGORY MD [facility] ONC [id number] 03/12/2018 13:24:00 03/12/2018 18:48:00 DIS Outpatient ALPHONSE IBRAHIM, EMANUEL Quiros [facility] ER WEAKNESS [id number] 03/04/2018 13:49:00 03/04/2018 17:30:00 DIS Emergency VERN BLOCK MD [facility] ER N/V [id number] 02/26/2018 11:02:00 02/26/2018 23:59:59 CLS Outpatient ANÍBAL GRESHAM MD [facility] LAB [id number] 12/04/2017 08:58:00 12/18/2017 09:02:00 DIS Outpatient BILL GREGORY MD [facility] ONC [id number] 11/09/2017 09:17:00 11/09/2017 23:59:59 CLS Outpatient BILL GREGORY MD [facility] RAD RECTAL CANCER [id number] 06/05/2018 10:10:00 ACT Emergency VERN BLOCK MD [facility] ER LT LEG SWELLING, POSSIBLE ALLERGY RX [id number] 06/04/2018 11:45:00 PEN Preadmit BILL GREGORY MD [facility] RAD RECTAL CANCER [id number] 11/08/2017 08:30:00 Document Registration [id number] 06/16/2013 10:17:00 06/16/2013 23:59:59 CLS Outpatient Hamlet Cleveland MD [facility] on [place] [id number] 05/02/2018 14:36:47 Document Registration [id number] 04/19/2018 11:00:03 Document Registration [id number] 04/15/2018 09:52:13 Document Registration [id number] 02/06/2018 01:29:10 Document Registration [id number] 01/25/2018 16:33:45 Document Registration [id number] 12/11/2017 12:12:32 Document Registration [id number] 12/10/2017 17:31:39 Document Registration [id number] 11/22/2017 16:54:49 Document Registration [id number] 07/30/2017 15:44:52 Document Registration [id number] 07/16/2017 15:35:35 Document Registration [id number] 07/02/2017 15:18:47 Document Registration [id number] 05/21/2017 15:40:17 Document Registration [id number] 05/08/2017 15:39:12 Document Registration [id number] 04/23/2017 16:02:20 Document Registration [id number] 04/09/2017 16:06:24 Document Registration [id number] 03/26/2017 15:57:02 Document Registration [id number] 02/26/2017 14:57:13 Document Registration [id number] 02/12/2017 16:11:09 Document Registration [id number] 01/29/2017 17:14:43 Document Registration [id number] 01/01/2017 15:27:05 Document Registration [id number] 12/18/2016 14:49:32 Document Registration [id number] 12/05/2016 15:29:21 Document Registration [id number] 11/21/2016 15:02:09 Document Registration [id number] 11/06/2016 15:19:02 Document Registration
[2018-06-05 11:00] LABS: BASOPHILS % (AUTO) 0 % (0-10); EOSINOPHILS # (AUTO) 0.1 10^3/uL (0.0-0.3); EOSINOPHILS % (AUTO) 2 % (0-10); HEMATOCRIT 25 % (35-52); HEMOGLOBIN 7.9 G/DL (11.5-16.0); LYMPHOCYTES # (AUTO) 0.6 X 10^3 (1.0-4.0); LYMPHOCYTES % (AUTO) 8 % (12-44); MEAN CORPUSCULAR HEMOGLOBIN 31 PG (25-34); MEAN CORPUSCULAR HGB CONC 32 G/DL (32-36); MEAN CORPUSCULAR VOLUME 97 FL (80-99); MEAN PLATELET VOLUME 9.2 FL (7.4-10.4); MONOCYTES # (AUTO) 0.9 X 10^3 (0.0-1.0); MONOCYTES % (AUTO) 12 % (0-12); NEUTROPHILS # (AUTO) 5.9 X 10^3 (1.8-7.8); NEUTROPHILS % (AUTO) 78 % (42-75); PLATELET COUNT 243 10^3/uL (130-400); RED CELL DISTRIBUTION WIDTH 15.5 % (10.0-14.5); WHITE BLOOD COUNT 7.6 10^3/uL (4.3-11.0)
--- NOTE | 2018-06-05 11:13 | ED General ---
General Chief Complaint: General Problems/Pain Stated Complaint: LT LEG SWELLING, POSSIBLE ALLERGY RX Source of Information: Patient, Family Exam Limitations: No Limitations History of Present Illness Date Seen by Provider: Jun 05, 2018 Time Seen by Provider: 10:58 Initial Comments Here with confusion, left leg swelling that is chronic for months, itching scan and overall symptoms consistent with previous when she had acute renal failure. is concerned about her. 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 She had obstruction on the left which caused left kidney to fail. She does have chronic kidney disease on the right with only a 20% remaining function. She was on dialysis from late February until a few weeks ago. She's been off dialysis since then and doing okay until the last few days when she became increasingly confused. No report of fever. Family states that she is eating some and MB drinking a little bit less. With respect to the leg, patient and family report that the left leg has been swollen for quite some time and she's had multiple workups for blood clots that of all been negative. The cancer sits at the left side of the pelvis and they were told that this may be the cause of the swelling of the leg. 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 Timing/Duration: 2-3 Days Severity: Moderate Associated Systoms: No Cough, No Fever/Chills; Malaise; No Nausea/Vomiting, No Shortness of Air; Weakness Allergies and Home Medications Allergies Coded Allergies: Penicillins (Verified Allergy, Unknown, 11/08/17) Home Medications Ondansetron 4 Mg Tab.rapdis, 4 MG PO Q6H PRN for NAUSEA/VOMITING Prescribed by: VERN BLOCK on 03/04/18 1714 Patient Home Medication List Home Medication List Reviewed: Yes Review of Systems Review of Systems Constitutional: see HPI; No chills, No fever EENTM: no symptoms reported Respiratory: no symptoms reported Cardiovascular: no symptoms reported Gastrointestinal: No nausea, No vomiting Genitourinary: No discharge, No dysuria, No pain Musculoskeletal: muscle pain, muscle weakness Skin: change in color Psychiatric/Neurological: See HPI All Other Systems Reviewed Negative Unless Noted: Yes Past Bwjvnyw-Jtglsa-Ldyity Hx Past Med/Social Hx: Reviewed Nursing Past Med/Soc Hx Patient Social History Alcohol Use: Denies Use Recreational Drug Use: No Smoking Status: Never a Smoker Recent Foreign Travel: No Contact w/Someone Who Travel: No Recent Hopitalizations: No Immunizations Up To Date Tetanus Booster (TDap): Unknown PED Vaccines UTD: Yes Past Medical History Surgeries: Yes Abdominal, Appendectomy, Hysterectomy Respiratory: No Cardiac: Yes Hypertension 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 Genitourinary: Yes (KIDNEY STENT) Renal Failure Gastrointestinal: Yes Musculoskeletal: No Endocrine: No HEENT: No Cancer: Yes Bladder, Rectal, Colon Did You Recieve Any Treatments: Yes What Type of Treatment Did You: Chemotherapy, Radiation, Surgical Intervention Psychosocial: No Integumentary: No Blood Disorders: No Family Medical History Reviewed Nursing Family Hx No Pertinent Family Hx Physical Exam Vital Signs Vital Signs - First Documented 06/05/18 10:15 Temp 97.7 Pulse 77 Resp 18 B/P (MAP) 131/48 (75) Pulse Ox 98 O2 Delivery Room Air Capillary Refill : Height, Weight, BMI Height: 5'4.00" Weight: 175lbs. oz. 79.369563wc; BMI Method:Stated General Appearance: WD/WN, Chronically ill HEENT: PERRL/EOMI, Pharynx Normal Neck: Non Tender, Supple Respiratory: Lungs Clear, Normal Breath Sounds Cardiovascular: Regular Rate, Rhythm, No Murmur Gastrointestinal: Non Tender, Soft Back: Normal Inspection, No CVA Tenderness, No Vertebral Tenderness Extremity: Normal Range of Motion, Swelling ( Nonpitting left leg swollen with some redness. Nonpitting.) Neurologic/Psychiatric: Alert, Motor Weakness (global), Other (somewhat confused but does answer questions and follow simple commands.) Skin: Warm/Dry; No Rash Focused Exam Lactate Level 06/05/18 12:00: Lactic Acid Level 0.56 Lactic Acid Level Laboratory Tests Test 06/05/18 12:00 Lactic Acid Level 0.56 MMOL/L (0.50-2.00) Progress/Results/Core Measures Suspected Sepsis SIRS Temperature: Pulse: Respiratory Rate: Laboratory Tests 06/05/18 10:50: White Blood Count 7.6 Blood Pressure / Mean: 06/05/18 12:00: Lactic Acid Level 0.56 Laboratory Tests 06/05/18 10:50: Creatinine 5.70#H, Platelet Count 243, Total Bilirubin 0.3 Results/Orders Lab Results Laboratory Tests Test 06/05/18 10:50 06/05/18 11:21 06/05/18 12:00 Range/Units White Blood Count 7.6 4.3-11.0 10^3/uL Red Blood Count 2.57 L 4.35-5.85 10^6/uL Hemoglobin 7.9 L 11.5-16.0 G/DL Hematocrit 25 L 35-52 % Mean Corpuscular Volume 97 80-99 FL Mean Corpuscular Hemoglobin 31 25-34 PG Mean Corpuscular Hemoglobin Concent 32 32-36 G/DL Red Cell Distribution Width 15.5 H 10.0-14.5 % Platelet Count 243 130-400 10^3/uL Mean Platelet Volume 9.2 7.4-10.4 FL Neutrophils (%) (Auto) 78 H 42-75 % Lymphocytes (%) (Auto) 8 L 12-44 % Monocytes (%) (Auto) 12 0-12 % Eosinophils (%) (Auto) 2 0-10 % Basophils (%) (Auto) 0 0-10 % Neutrophils # (Auto) 5.9 1.8-7.8 X 10^3 Lymphocytes # (Auto) 0.6 L 1.0-4.0 X 10^3 Monocytes # (Auto) 0.9 0.0-1.0 X 10^3 Eosinophils # (Auto) 0.1 0.0-0.3 10^3/uL Basophils # (Auto) 0.0 0.0-0.1 10^3/uL Sodium Level 134 L 135-145 MMOL/L Potassium Level 4.2 3.6-5.0 MMOL/L Chloride Level 99 98-107 MMOL/L Carbon Dioxide Level 17 L 21-32 MMOL/L Anion Gap 18 H 5-14 MMOL/L Blood Urea Nitrogen 93 H 7-18 MG/DL Creatinine 5.70 #H 0.60-1.30 MG/DL Estimat Glomerular Filtration Rate 8 BUN/Creatinine Ratio 16 Glucose Level 81 70-105 MG/DL Calcium Level 9.6 8.5-10.1 MG/DL Corrected Calcium 9.9 8.5-10.1 MG/DL Total Bilirubin 0.3 0.1-1.0 MG/DL Aspartate Amino Transf (AST/SGOT) 20 5-34 U/L Alanine Aminotransferase (ALT/SGPT) 14 0-55 U/L Alkaline Phosphatase 60 40-136 U/L C-Reactive Protein High Sensitivity 27.70 H 0.00-0.50 MG/DL Total Protein 6.8 6.4-8.2 GM/DL Albumin 3.6 3.2-4.5 GM/DL Urine Color YELLOW Urine Clarity VERY CLOUDY H Urine pH 5 5-9 Urine Specific [place] 1.020 1.016-1.022 Urine Protein 3+ H NEGATIVE Urine Glucose (UA) NEGATIVE NEGATIVE Urine Ketones NEGATIVE NEGATIVE Urine Nitrite NEGATIVE NEGATIVE Urine Bilirubin NEGATIVE NEGATIVE Urine Urobilinogen NORMAL NORMAL MG/DL Urine Leukocyte Esterase 3+ H NEGATIVE Urine RBC (Auto) 5+ H NEGATIVE Urine RBC 50-100 H /HPF Urine WBC TNTC H /HPF Urine Squamous Epithelial Cells 2-5 /HPF Urine Crystals PRESENT H /LPF Urine Amorphous Sediment FEW ROSA URATES H /LPF Urine Bacteria LARGE H /HPF Urine Casts NONE /LPF Urine Mucus NEGATIVE /LPF Urine Culture Indicated YES Lactic Acid Level 0.56 0.50-2.00 MMOL/L My Orders Orders - VERN BLOCK MD Cbc With Automated Diff (06/05/18 10:42) Comprehensive Metabolic Panel (06/05/18 10:42) Hs C Reactive Protein (06/05/18 10:42) Ua Culture If Indicated (06/05/18 10:42) Saline Lock/Iv-Start (06/05/18 10:42) Ns Iv 500 Ml (Sodium Chloride 0.9%) (06/05/18 10:42) Urine Culture (06/05/18 11:21) Lactic Acid Analyzer (06/05/18 11:43) Blood Culture (06/05/18 11:43) Chest 1 View, Ap/Pa Only (06/05/18 11:43) Ceftriaxone For Iv Use (Rocephin For I (06/05/18 13:00) Vancomycin Injection (Vancomycin Injecti (06/05/18 13:00) Medications Given in ED Current Medications Medications Dose Ordered Sig/Sophy Route Start Time Stop Time Status Last Admin Dose Admin Ceftriaxone Sodium 1000 mg/ Sterile Water 10 ml @ 200 mls/hr ONCE ONCE IV 06/05/18 13:00 06/05/18 13:02 DC 06/05/18 13:09 200 MLS/HR Sodium Chloride 500 ml @ 0 mls/hr Q0M ONCE IV 06/05/18 10:42 06/05/18 10:43 DC 06/05/18 11:26 500 MLS/HR Vital Signs/I&O 06/05/18 10:15 Temp 97.7 Pulse 77 Resp 18 B/P (MAP) 131/48 (75) Pulse Ox 98 O2 Delivery Room Air Capillary Refill : Progress Note : Progress Note Seen and evaluated. IV, labs, UA, chest x-ray, normal saline 500 mL bolus ordered. Monitor patient. UA obtained and is grossly contaminated. Elevated serum creatinine noted. Blood cultures and lactic acid ordered. We will initiate Rocephin and vancomycin given patient's historical infection with staph epidermidis in the urine with resistance but sensitive to vancomycin. Monitor patient. 1330: I have made contact with [facility] in [place], [place]. Patient does have creatinine elevation concerning for acute renal failure that may require dialysis. She has poor renal function of her one remaining kidney. I did discuss the case with Dr. Cervantes, hospitalist on-call and she has graciously accepted patient for transfer. I discussed all the findings and concerns with the patient and family who agree. We will cloud films from today to [place]. She was to have CT scans as outpatient yesterday but was unable to make those. We did consider that today but will hold until evaluated at [place] or as outpatient later. This was discussed with the patient and family are agree. Transfer via [facility]. Current blood pressure 123/52 with heart rate is 73 and O2 sat of 98% on room air Diagnostic Imaging Diagonstic Imaging: Xray Plain Films/CT/US/NM/MRI: chest Comments NAME: LAURA ESCOTO [facility] REC#: [id number] PT STATUS: REG ER : 1955 PHYSICIAN: VERN BLOCK MD ADMIT DATE: 06/05/18/ER Signed Date of Exam: 06/05/18 CHEST 1 VIEW, AP/PA ONLY Indication: Renal failure Portable chest 12:01 PM Right IJ Port-A-Cath tip projects over the right innominate vein. There are numerous small nodular opacities scattered throughout lung suspicious for metastatic disease. Heart size and pulmonary vascular normal. Lungs are clear. There are no effusions or pneumothoraces. Impression: Numerous nodular opacities measuring up to 1 cm in diameter scattered throughout the lungs suspicious for metastatic disease. Dictated by: Dictated on workstation # [id number] Dict: 06/05/18 1205 Trans: 06/05/18 1206 Interpreted by: VERN PAGE MD Electronically signed by: VERN PAGE MD 06/05/18 1206 Departure Impression Primary Impression: Acute on chronic renal failure Qualified Codes: N17.9 - Acute kidney failure, unspecified; N18.9 - Chronic kidney disease, unspecified Additional Impressions: Urinary tract infection Qualified Codes: N30.00 - Acute cystitis without hematuria Metastatic colon cancer in female Disposition: 02 XFER SHT-TRM HOSP Condition: Stable Transfer Time Spoke to Accepting Phy: 13:30 Transfer Time: 13:30 Transfer Facility: [place], [place], Dr. Cervantes accepting Method of Transfer: EMS Departure-Patient Inst. Referrals: JAYCEE GODWIN (PCP/Family) Primary Care Physician VERN BLOCK MD Jun 05, 2018 11:13
[2018-06-05] MEDS ORDERED: OXYC-471 (11:22)
[2018-06-05] MEDS ORDERED: POTA20TA8 (11:22)
[2018-06-05] MEDS ORDERED: OXYC30TA77 (11:22)
[2018-06-05] MEDS ORDERED: ONDA8TAB13 (11:22)
[2018-06-05] MEDS ORDERED: FURO40TA4 (11:22)
[2018-06-05] MEDS ORDERED: HYDR-3812 (11:22)
[2018-06-05 11:24] LABS: ALBUMIN 3.6 GM/DL (3.2-4.5); BILIRUBIN,TOTAL 0.3 MG/DL (0.1-1.0); CALCIUM 9.6 MG/DL (8.5-10.1); CREATININE SERUM 5.7 MG/DL (0.60-1.30); POTASSIUM 4.2 MMOL/L (3.6-5.0); TOTAL PROTEIN 6.8 GM/DL (6.4-8.2)
[2018-06-05 11:29] LABS: BILIRUBIN,URINE NEGATIVE (NEGATIVE); CLARITY,URINE VERY CLOUDY; COLOR,URINE YELLOW; GLUCOSE, URINE (UA) NEGATIVE (NEGATIVE); KETONES,URINE NEGATIVE (NEGATIVE); LEUKOCYTE ESTERASE ,URINE 3+ (NEGATIVE); NITRITE,URINE NEGATIVE (NEGATIVE); PH,URINE 5 (5-9); PROTEIN,URINE 3+ (NEGATIVE); UROBILINOGEN,URINE NORMAL (NORMAL)
[2018-06-05 11:41] LABS: BACTERIA,URINE LARGE /HPF; RBC,URINE 50-100 /HPF; WBC,URINE TNTC /HPF
[2018-06-05 11:42] LABS: AMORPHOUS SEDIMENT,UR FEW AMOR URATES /LPF
--- NOTE | 2018-06-05 12:09 | Diagnostic Imaging Report ---
Indication: Renal failure Portable chest 12:01 PM Right IJ Port-A-Cath tip projects over the right innominate vein. There are numerous small nodular opacities scattered throughout lung suspicious for metastatic disease. Heart size and pulmonary vascular normal. Lungs are clear. There are no effusions or pneumothoraces. Impression: Numerous nodular opacities measuring up to 1 cm in diameter scattered throughout the lungs suspicious for metastatic disease. Dictated by: Dictated on workstation # [id number]
[2018-06-05] MEDS ORDERED: cefTRIAXone FOR IV USE 1,000 MG in WATER (STERILE) FOR INJECTION 10 ML IV ONE (13:00)
[2018-06-05] MEDS ORDERED: VANCOMYCIN INJECTION 1,000 MG in NS (IVPB) 250 ML IV SCH (13:00)
--- NOTE | 2018-06-05 13:39 | NUR ---
PATIENT ACCEPTED BY [facility] WILL CALL WITH ROOM
--- NOTE | 2018-06-05 14:38 | NUR ---
CON'T TO WAIT FOR [facility] TO CALL WITH ROOM FAMILY OF SITUATION
--- NOTE | 2018-06-05 14:53 | NUR ---
EMS CALLED FOR TRANSFER .
--- NOTE | 2018-06-05 15:35 | NUR ---
EMS HERE FOR TRANSFER.
[2018-06-05 15:38] VITALS: BP 122/52
== END 2018-06-05 15:46 | disposition short-term general hospital (02) ==
LOC: EDUNIT# 10:07 → ER 10:10
DX: N17.9 Acute kidney failure, unspecified (principal); I12.0 Hypertensive chronic kidney disease with stage 5 chronic kidney disease or end stage renal disease; N18.6 End stage renal disease; N39.0 Urinary tract infection, site not specified; C18.9 Malignant neoplasm of colon, unspecified; C79.19 Secondary malignant neoplasm of other urinary organs; C78.2 Secondary malignant neoplasm of pleura; Z99.2 Dependence on renal dialysis; Z88.0 Allergy status to penicillin; Z96.0 Presence of urogenital implants; Z92.21 Personal history of antineoplastic chemotherapy; Z90.710 Acquired absence of both cervix and uterus; Z90.49 Acquired absence of other specified parts of digestive tract
CPT/HCPCS: 36415; 71045; 80053; 81000; 83605; 85025; 86141; 87040; 87088; 96361; 96374

== ENCOUNTER 2018-06-26 13:06 | Outpatient (RCR) | payer BC ==
[2018-05-14 11:14] LABS: BASOPHILS % (AUTO) 0 % (0-10); EOSINOPHILS # (AUTO) 0.1 10^3/uL (0.0-0.3); EOSINOPHILS % (AUTO) 2 % (0-10); HEMATOCRIT 29 % (35-52); HEMOGLOBIN 8.8 G/DL (11.5-16.0); LYMPHOCYTES # (AUTO) 1.1 X 10^3 (1.0-4.0); LYMPHOCYTES % (AUTO) 18 % (12-44); MEAN CORPUSCULAR HEMOGLOBIN 30 PG (25-34); MEAN CORPUSCULAR HGB CONC 31 G/DL (32-36); MEAN CORPUSCULAR VOLUME 98 FL (80-99); MEAN PLATELET VOLUME 9.4 FL (7.4-10.4); MONOCYTES # (AUTO) 0.4 X 10^3 (0.0-1.0); MONOCYTES % (AUTO) 7 % (0-12); NEUTROPHILS # (AUTO) 4.8 X 10^3 (1.8-7.8); NEUTROPHILS % (AUTO) 74 % (42-75); PLATELET COUNT 200 10^3/uL (130-400); RED CELL DISTRIBUTION WIDTH 17.5 % (10.0-14.5); WHITE BLOOD COUNT 6.5 10^3/uL (4.3-11.0)
[2018-05-14 11:35] LABS: ALBUMIN 4.2 GM/DL (3.2-4.5); BILIRUBIN,TOTAL 0.2 MG/DL (0.1-1.0); CALCIUM 10.2 MG/DL (8.5-10.1); CREATININE SERUM 1.68 MG/DL (0.60-1.30); POTASSIUM 4.4 MMOL/L (3.6-5.0); TOTAL PROTEIN 7.4 GM/DL (6.4-8.2)
[2018-05-29 14:18] LABS: BASOPHILS % (AUTO) 0 % (0-10); EOSINOPHILS # (AUTO) 0.3 10^3/uL (0.0-0.3); EOSINOPHILS % (AUTO) 5 % (0-10); HEMATOCRIT 32 % (35-52); HEMOGLOBIN 9.7 G/DL (11.5-16.0); LYMPHOCYTES # (AUTO) 1.1 X 10^3 (1.0-4.0); LYMPHOCYTES % (AUTO) 21 % (12-44); MEAN CORPUSCULAR HEMOGLOBIN 30 PG (25-34); MEAN CORPUSCULAR HGB CONC 30 G/DL (32-36); MEAN CORPUSCULAR VOLUME 98 FL (80-99); MONOCYTES # (AUTO) 0.4 X 10^3 (0.0-1.0); MONOCYTES % (AUTO) 8 % (0-12); NEUTROPHILS # (AUTO) 3.5 X 10^3 (1.8-7.8); NEUTROPHILS % (AUTO) 66 % (42-75); PLATELET COUNT 262 10^3/uL (130-400); RED CELL DISTRIBUTION WIDTH 16.3 % (10.0-14.5); WHITE BLOOD COUNT 5.4 10^3/uL (4.3-11.0)
[2018-05-29 14:37] LABS: ALBUMIN 4.3 GM/DL (3.2-4.5); BILIRUBIN,TOTAL 0.4 MG/DL (0.1-1.0); CALCIUM 9.7 MG/DL (8.5-10.1); CREATININE SERUM 1.26 MG/DL (0.60-1.30); POTASSIUM 3.5 MMOL/L (3.6-5.0); TOTAL PROTEIN 7.2 GM/DL (6.4-8.2)
[~2018-06-26 13:06] MED LIST changes: +ATROPINE INJ 0.4 MG/ML SDV (CANCER CENTER) INJ SCH; +BEVACIZUMAB IV SCH; +FAMOTIDINE 20MG/2ML IV (CANCER CTR) IV SCH; +FLUOROURACIL 0.8 GM in SYRINGE-IVPB 1 SYRINGE IV SCH; +FLUOROURACIL 4,800 MG in NS (IVPB) CANCER CENTER 51.2 ML IV SCH; +FOSAPREPITANT DIMEGLUMINE 150 MG in NS (IVPB) CANCER CENTER ONLY 150 ML IV SCH; +FURO40TA4; +HYDR-3812; +IRINOTECAN HCL 300 MG, IRINOTECAN HCL 60 MG in D5W 250 ML IVPB (CANCER CTR) 250 ML IV SCH; +LEUCOVORIN CALCIUM 700 MG, LEUCOVORIN CALCIUM 100 MG in D5W 250 ML IVPB (CANCER CTR) 25... IV SCH; +NS IV 1000 ML (CANCER CTR) IV SCH; +ONDA8TAB13; +OXYC-471; +OXYC30TA77; +PALONOSETRON HCL 0.25 MG, DEXAMETHASONE INJECTION 10 MG in NS (IVPB) CANCER CENTER 50 ML IV SCH; +POTA20TA8; +[UNRECOGNIZED DRUG - OTHER] IV SCH; +diphenhydrAMINE 25 MG TAB (BENADRYL) CANCER CENTER PO SCH
[2018-06-26 13:19] LABS: BASOPHILS % (AUTO) 0 % (0-10); EOSINOPHILS # (AUTO) 0.3 10^3/uL (0.0-0.3); EOSINOPHILS % (AUTO) 5 % (0-10); HEMATOCRIT 30 % (35-52); HEMOGLOBIN 9.1 G/DL (11.5-16.0); LYMPHOCYTES # (AUTO) 1.3 X 10^3 (1.0-4.0); LYMPHOCYTES % (AUTO) 19 % (12-44); MEAN CORPUSCULAR HEMOGLOBIN 30 PG (25-34); MEAN CORPUSCULAR HGB CONC 30 G/DL (32-36); MEAN CORPUSCULAR VOLUME 100 FL (80-99); MONOCYTES # (AUTO) 0.5 X 10^3 (0.0-1.0); MONOCYTES % (AUTO) 7 % (0-12); NEUTROPHILS # (AUTO) 4.8 X 10^3 (1.8-7.8); NEUTROPHILS % (AUTO) 69 % (42-75); PLATELET COUNT 227 10^3/uL (130-400); RED CELL DISTRIBUTION WIDTH 15.6 % (10.0-14.5); WHITE BLOOD COUNT 6.9 10^3/uL (4.3-11.0)
[2018-06-26 13:35] LABS: ALBUMIN 4.1 GM/DL (3.2-4.5); BILIRUBIN,TOTAL 0.3 MG/DL (0.1-1.0); CALCIUM 9.7 MG/DL (8.5-10.1); CREATININE SERUM 1.52 MG/DL (0.60-1.30); POTASSIUM 3.2 MMOL/L (3.6-5.0); TOTAL PROTEIN 7.2 GM/DL (6.4-8.2)
== END 2018-07-15 | disposition home or self-care (01) ==
LOC: ONC 13:06
PROVIDERS: ATTEND Internal Medicine Hematology & Oncology
DX: C20 Malignant neoplasm of rectum (principal); C78.01 Secondary malignant neoplasm of right lung; C78.02 Secondary malignant neoplasm of left lung; C79.11 Secondary malignant neoplasm of bladder; C79.89 Secondary malignant neoplasm of other specified sites; C77.5 Secondary and unspecified malignant neoplasm of intrapelvic lymph nodes; I10 Essential (primary) hypertension; M25.552 Pain in left hip; M54.5 Low back pain; M79.605 Pain in left leg; N39.0 Urinary tract infection, site not specified; D64.9 Anemia, unspecified; D72.819 Decreased white blood cell count, unspecified; Z79.899 Other long term (current) drug therapy; Z93.3 Colostomy status
CPT/HCPCS: 36415; 36591; 80053; 85025; 99213

== ENCOUNTER → 2018-07-24 | Outpatient (CLI) | payer BC ==
[~2018-07-24] MED LIST changes: -ATROPINE INJ 0.4 MG/ML SDV (CANCER CENTER) INJ SCH; -BEVACIZUMAB IV SCH; -FAMOTIDINE 20MG/2ML IV (CANCER CTR) IV SCH; -FLUOROURACIL 0.8 GM in SYRINGE-IVPB 1 SYRINGE IV SCH; -FLUOROURACIL 4,800 MG in NS (IVPB) CANCER CENTER 51.2 ML IV SCH; -FOSAPREPITANT DIMEGLUMINE 150 MG in NS (IVPB) CANCER CENTER ONLY 150 ML IV SCH; -IRINOTECAN HCL 300 MG, IRINOTECAN HCL 60 MG in D5W 250 ML IVPB (CANCER CTR) 250 ML IV SCH; -LEUCOVORIN CALCIUM 700 MG, LEUCOVORIN CALCIUM 100 MG in D5W 250 ML IVPB (CANCER CTR) 25... IV SCH; -NS IV 1000 ML (CANCER CTR) IV SCH; -PALONOSETRON HCL 0.25 MG, DEXAMETHASONE INJECTION 10 MG in NS (IVPB) CANCER CENTER 50 ML IV SCH; -[UNRECOGNIZED DRUG - OTHER] IV SCH; -diphenhydrAMINE 25 MG TAB (BENADRYL) CANCER CENTER PO SCH
--- NOTE | 2018-07-24 13:06 | Diagnostic Imaging Report ---
EXAMINATION: Left hip at 12:05 p.m. INDICATION: Hip pain. FINDINGS: AP and lateral views were obtained. There is no fracture, dislocation, or acute bony abnormality evident; however, there is a permeative lesion involving the distal half of the inferior pubic ramus on the left. In retrospect, this finding was also evident on the prior CT abdomen/pelvis exam of 03/12/2018. This finding should be considered secondary to neoplastic disease until proven otherwise. The soft tissue mass in the left pelvis seen on the CT exam is not well visualized on this study. The ureteral stent on the right noted previously is partially evident and there are again numerous surgical clips in the left pelvis. IMPRESSION: 1. There is no evidence for an acute bony abnormality. 2. There is a permeative lesion eroding the distal half of the inferior pubic ramus on the left. This finding should be considered neoplastic until proven otherwise. 3. These results were discussed with Dr. Zamora. Dictated by: Dictated on workstation # [id number]
== END ==
LOC: RAD 11:51
PROVIDERS: ATTEND Physician Assistant
DX: M89.9 Disorder of bone, unspecified (principal); M25.552 Pain in left hip
CPT/HCPCS: 73502

== ENCOUNTER 2018-08-22 10:41 | Outpatient (RCR) | payer BC ==
[2018-07-24 13:30] LABS: BASOPHILS % (AUTO) 0 % (0-10); EOSINOPHILS # (AUTO) 0.4 10^3/uL (0.0-0.3); EOSINOPHILS % (AUTO) 5 % (0-10); HEMATOCRIT 27 % (35-52); HEMOGLOBIN 8.2 G/DL (11.5-16.0); LYMPHOCYTES % (AUTO) 12 % (12-44); MEAN CORPUSCULAR HEMOGLOBIN 30 PG (25-34); MEAN CORPUSCULAR HGB CONC 30 G/DL (32-36); MEAN CORPUSCULAR VOLUME 99 FL (80-99); MEAN PLATELET VOLUME 8.8 FL (7.4-10.4); MONOCYTES # (AUTO) 0.6 X 10^3 (0.0-1.0); MONOCYTES % (AUTO) 8 % (0-12); NEUTROPHILS # (AUTO) 6.1 X 10^3 (1.8-7.8); NEUTROPHILS % (AUTO) 74 % (42-75); PLATELET COUNT 225 10^3/uL (130-400); WHITE BLOOD COUNT 8.2 10^3/uL (4.3-11.0)
[2018-07-24 14:04] LABS: ALBUMIN 3.7 GM/DL (3.2-4.5); BILIRUBIN,TOTAL 0.2 MG/DL (0.1-1.0); CALCIUM 9.5 MG/DL (8.5-10.1); CREATININE SERUM 1.79 MG/DL (0.60-1.30); POTASSIUM 4.2 MMOL/L (3.6-5.0); TOTAL PROTEIN 6.6 GM/DL (6.4-8.2)
== END 2018-08-23 10:19 | disposition home or self-care (01) ==
LOC: ONC 10:41
PROVIDERS: ATTEND Internal Medicine Hematology & Oncology
DX: Z51.0 Encounter for antineoplastic radiation therapy (principal); C20 Malignant neoplasm of rectum; C78.01 Secondary malignant neoplasm of right lung; C78.02 Secondary malignant neoplasm of left lung; C79.11 Secondary malignant neoplasm of bladder; C79.89 Secondary malignant neoplasm of other specified sites; C77.5 Secondary and unspecified malignant neoplasm of intrapelvic lymph nodes; I10 Essential (primary) hypertension; I82.412 Acute embolism and thrombosis of left femoral vein; N39.0 Urinary tract infection, site not specified; D63.0 Anemia in neoplastic disease; M25.552 Pain in left hip; M54.5 Low back pain; M79.605 Pain in left leg; D72.819 Decreased white blood cell count, unspecified; Z79.891 Long term (current) use of opiate analgesic; Z79.899 Other long term (current) drug therapy; Z93.3 Colostomy status; Z45.2 Encounter for adjustment and management of vascular access device
CPT/HCPCS: 77290; 77300; 77301; 77334; 77338; 77386; 77470; 80053; 85025; 99204; 99213

== ENCOUNTER 2018-08-29 09:50 | Outpatient (RCR) | payer BC, OTHER | END 2018-11-21 | disposition home or self-care (01) | LOC: ONC 09:50 | PROVIDERS: ATTEND Internal Medicine Hematology & Oncology | DX: C20 Malignant neoplasm of rectum (principal); C78.01 Secondary malignant neoplasm of right lung; C78.02 Secondary malignant neoplasm of left lung; C79.11 Secondary malignant neoplasm of bladder; C79.89 Secondary malignant neoplasm of other specified sites; C77.5 Secondary and unspecified malignant neoplasm of intrapelvic lymph nodes; I10 Essential (primary) hypertension; I82.412 Acute embolism and thrombosis of left femoral vein; N39.0 Urinary tract infection, site not specified; D63.0 Anemia in neoplastic disease; M25.552 Pain in left hip; M54.5 Low back pain; M79.605 Pain in left leg; D72.819 Decreased white blood cell count, unspecified; Z79.891 Long term (current) use of opiate analgesic; Z79.899 Other long term (current) drug therapy; Z93.3 Colostomy status; Z45.2 Encounter for adjustment and management of vascular access device | CPT/HCPCS: 77336; 77386 ==